=== PATIENT | female | born 1960 | race Caucasian/White ===

== ENCOUNTER 2022-07-10 15:55 | Emergency (ER) | payer OTHER, SELFPAY ==
[2022-07-10 16:05] VITALS: BP 148/94; PULSE 83; RESP 16; TEMP 36.3; O2SAT 100
--- NOTE | 2022-07-10 16:49 | ED.SKABFB ---
HPI - Skin/Abscess/Foreign Bdy General Chief complaint: Skin/Abscess/Foreign Body Stated complaint: Skin Sore/Finger Time Seen by Provider: 07/10/22 16:49 Source: patient, RN notes reviewed and old records reviewed Mode of arrival: ambulatory Limitations: no limitations History of Present Illness HPI narrative: 52-year-old female presents to [facility] with complaints of swelling redness and tenderness along the medial nail bed of her right middle finger for the past day and a half.Patient states that her nail was jagged and she cut her nail and doesn't know if she cut the nail in a way that caused this to get inflamed and infected. Patient has greenish area next to medial aspect of her nail bed of right middle finger with swelling present to her finger. Patient states pain to her finger reports that finger is throbbing, denies any fever. Patient has soaked her right middle finger in Epsom salt and peroxide complaint: other (paronychia) Onset (ago): day(s) (1.5 days) Severity scale (1-10): 8 Treatments prior to arrival: other (ice, Epsom salt soak, and peroxide) Related Data Home Medications Medication Instructions Recorded Confirmed lisinopril 40 mg tablet 40 mg PO DAILY 07/10/22 07/10/22 Allergies Allergy/AdvReac Type Severity Reaction Status Date / Time No Known Allergies Allergy Verified 07/10/22 16:53 Review of Systems Review of Systems: CONSTITUTIONAL: Denies fever, chills, or sweats. CARDIOVASCULAR: Denies chest pain, palpitations, or edema. RESPIRATORY: Denies cough or dyspnea. SKIN: Reports swelling redness and pain to medial aspect of her right middle finger nail bed with some swelling to end of her right middle finger MUSCULOSKELETAL: Denies joint pain or myalgia. NEUROLOGIC: Denies headache, numbness, or weakness. All systems reviewed & are unremarkable except as noted in HPI and below PMFSH Past Medical History Medical History (Updated 07/11/22 @ 00:01 by Juan Victoria) Hypertension Social History Social History (Updated 07/10/22 @ 17:26 by Deloris Palencia NP) Gender identity (if verbalized by the patient): Female Comments At time of signature, agree with nursing past medical, surgical, social and family history. There is no relevant family history pertinent to the presenting complaint Exam Narrative: GENERAL: Well-appearing, well-nourished, and in no acute distress. HEAD: Normocephalic, atraumatic. EYES: PERRLA, conjunctivae clear, and EOMI. ENT: Mucous membranes moist. Oropharynx without edema, erythema or lesions. NECK: Supple. No lymphadenopathy CHEST: Clear to auscultation. No respiratory distress.SAO2 100% on room air HEART: Regular rate and rhythm. SKIN: Warm, dry.? redness with swelling to end of the right middle finger with greenish tissue area medial aspect of nail bed with patient reporting some purulent drainage from area noted today and finger feels tight. NEURO:? Alert and oriented x3. PSYCH: Normal mood and affect Course Course Emergency Course: Patient is aware of diagnosis, understands and agrees to treatment plan.? Anticipatory guidance given.? Patient agrees to follow-up as directed and is aware of reasons to seek care at the emergency department. Portions of this record may have been created with voice recognition software Level of Care: Express Care Visit Vital Signs Vital signs: Vital Signs Temperature 36.3 C L 07/10/22 16:05 Pulse Rate 83 07/10/22 16:05 Respiratory Rate 16 07/10/22 16:05 Blood Pressure 148/94 H 07/10/22 16:05 Pulse Oximetry 100 07/10/22 16:05 Oxygen Delivery Room Air 07/10/22 16:05 Temperature 36.3 C L 07/10/22 16:05 Pulse Rate 83 07/10/22 16:05 Respiratory Rate 16 07/10/22 16:05 Blood Pressure 148/94 H 07/10/22 16:05 Pulse Oximetry 100 07/10/22 16:05 Oxygen Delivery Room Air 07/10/22 16:05 Reviewed Procedures Abscess I/D right middle finger nailbed:
== END 2022-07-10 17:10 | disposition home or self-care (01) ==
PROVIDERS: Emergency Provider Registered Nurse; PCP Family Medicine
DX: L03.011 Cellulitis of right finger (principal); I10 Essential (primary) hypertension
CPT/HCPCS: 10060; 99213; G0463

== ENCOUNTER 2024-02-07 14:30 | Emergency (ER) | payer MEDICAID, SELFPAY ==
[2024-02-07 15:28] VITALS: BP 138/57; PULSE 84; RESP 20; TEMP 37; O2SAT 99
--- NOTE | 2024-02-07 16:53 | ED_ITS ---
HPI - URI/Sore Throat General Chief Complaint: Upper Respiratory Infection Stated Complaint: fever/cough/nose/headache Time Seen by Provider: 02/07/24 16:40 Source: patient, family, RN notes reviewed and old records reviewed Mode of arrival: ambulatory Limitations: no limitations History of Present Illness HPI Narrative: 63 year old female who presents to [facility] care with complaints of headache, neck pain, cough and some wheezing since yesterday. Patient reports that she has a history of asthma and does have an albuterol inhaler which she has used without resolution of symptoms. Patient reports that she has not had any known fevers and reports no known ill contacts. MD elicited complaint: cough Pertinent past history: asthma Onset (ago): day(s) (2 day increased symptoms) Severity: moderate Description of mucous: clear Able to tolerate fluids by mouth: Yes Treatments prior to arrival: other (inhaler) Related Data Home Medications ?Medication ?Instructions ?Recorded ?Confirmed ?Last Taken ?Type lisinopril 40 mg tablet 40 mg PO DAILY 07/10/22 07/10/22 Unknown History albuterol sulfate 90 mcg/actuation inhalation 02/07/24 Unknown History aerosol inhaler Allergies Allergy/AdvReac Type Severity Reaction Status Date / Time No Known Allergies Allergy Verified 02/07/24 15:33 Review of Systems Review of Systems: CONSTITUTIONAL: Denies malaise, chills, sweats, or fever. EYES: Denies visual changes, redness, or discharge. ENT: Reports rhinorrhea, congestion, no sinus pain, no otalgia and no sore throat. CARDIOVASCULAR: Denies chest pain, palpitations, or edema. RESPIRATORY: Reports cough.? Denies any acute dyspnea. GASTROINTESTINAL: Denies abdominal pain, nausea, vomiting, diarrhea SKIN: Denies rash or itching. MUSCULOSKELETAL: Denies myalgia. NEUROLOGIC: Reports headache. All systems reviewed & are unremarkable except as noted in HPI and below PMFSH Past Medical History Medical History (Updated 02/09/24 @ 16:39 by Deloris Palencia NP) Asthma Hypertension Social History Social History (Updated 07/10/22 @ 17:26 by Deloris Palencia NP) Gender identity (if verbalized by the patient): Female Comments At time of signature, agree with nursing past medical, surgical, social and family history. There is no relevant family history pertinent to the presenting complaint Exam Narrative: GENERAL: Well-appearing, well-nourished, and in no acute distress. HEAD: Normocephalic EYES: PERRLA, conjunctivae clear ENT: Nares clear, turbinates edematous and erythematous, clear discharge. Mucous membranes moist. TM pearly caro with dull light reflex bilaterally; no tragal tenderness. Oropharynx erythematous without lesions. Tonsils not enlarged and without exudate, no drooling, no hoarseness, no trismus, uvula midline.positive for post nasal discharge. NECK: Supple. No lymphadenopathy CHEST: scattered wheezes to bases, breath sounds equal.positive for wheezing, no honchi, rales, or stridor. No respiratory distress, speaks in full sentences. HEART: Regular rate and rhythm. No murmur heard. SKIN: Warm, dry, no rash. NEURO: Alert and oriented x3. PSYCH: Normal mood and affect Course Course Emergency Course: Patient is aware of diagnosis, understands and agrees to treatment plan.? Anticipatory guidance given.? Patient agrees to follow-up as directed and is aware of reasons to seek care at the emergency department. Portions of this record may have been created with voice recognition software Level of Care: Express Care Visit Vital Signs Vital signs: Vital Signs Temperature 37.0 C 02/07/24 15:28 Pulse Rate 84 02/07/24 15:28 Respiratory Rate 20 02/07/24 15:28 Blood Pressure 138/57 L 02/07/24 15:28 Pulse Oximetry 99 02/07/24 15:28 Oxygen Delivery Room Air 02/07/24 15:28 Temperature 37.0 C 02/07/24 15:28 Pulse Rate 84 02/07/24 15:28 Respiratory Rate 20 02/07/24 15:28 Blood Pressure 138/57 L 02/07/24 15:28 Pulse Oximetry 99 02/07/24 15:28 Oxygen Delivery Room Air 02/07/24 15:28 Reviewed MDM - URI/Sore Throat MDM Narrative Medical decision making narrative: Differential diagnosis considered: Mac virus, strep pharyngitis, allergic rhinitis, upper respiratory tract infection, sinusitis, rhinosinusitis, nasopharyngitis. viral pharyngitis, otitis media, otitis externa, pneumonia, bronchitis, viral cough syndrome, viral syndrome, and influenza.? Exam findings show no acute concerns or changes; patient is non-toxic appearing and is in no distress.? Patient is appropriate for outpatient treatment and follow-up. Differential Diagnosis Differential diagnosis: Likely upper respiratory infection, sinusitis, viral infection, bronchitis and other (cough) Medical Records Attestation: I reviewed the patient's medical records. Lab Data Attestation: I reviewed the patient's lab results. Critical Care Time Critical Care Time Critical Care Time: No Discharge Plan Discharge Clinical Impression: Bronchitis Patient Disposition: Home, Self-Care Condition: Stable Instructions: Antibiotic Form, Acute Bronchitis (ED) Additional Instructions: Increase fluids especially juices and water [id number] cough and cold medicine of your choice for your symptoms Zyrtec Claritin or Chen daily include Coricidin brand decongestant Continue your inhaler/nebulizer as directed Steroids as directed--take with food heat to the face 20-30 minutes 4-6 times a day for pain Salt water gargles, throat lozenges or throat sprays as desired Antibiotic as directed--finished the medication If your symptoms persist, change or worsen significantly before you can contact your personal physician then please, without delay, go to the emergency department for further evaluation. Follow-up with PCP in 7-10 days or sooner if needed Follow up with PCP soon in regards to your blood pressure which is elevated above threshold for referral. Blood pressure above 120/80 may indicate pre- hypertension. 138/57 Patient Language: Romansh Prescriptions: New prednisone 20 mg tablet 20 mg PO BID Qty: 10 0RF azithromycin 250 mg tablet See Rx Instructions .ROUTE .COMPLEX Qty: 6 0RF Rx Instructions: For 250 mg dose pack: take 500 mg today (day 1), then 250 mg for 4 days (days 2-5) No Action albuterol sulfate 90 mcg/actuation HFA aerosol inhaler INHALATION lisinopril 40 mg tablet 40 mg PO DAILY Follow-up/Referrals: Meliton,Jer Horne DO [Primary Care Provider] - Time of Disposition: 17:01 Quality [place] Coma Scale Eyes: Open Verbal: Oriented and Alert Motor: Follows Commands Mitzy Coma Total Score: 15
== END 2024-02-07 17:06 | disposition home or self-care (01) ==
PROVIDERS: Emergency Provider Registered Nurse; PCP Family Medicine
DX: J40 Bronchitis, not specified as acute or chronic (principal); I10 Essential (primary) hypertension
CPT/HCPCS: 99213; G0463

== ENCOUNTER 2024-02-12 10:03 | Emergency (ER) | payer MEDICAID, SELFPAY ==
--- NOTE | ~2024-02-12 | XR_ITS ---
Clinical Indication: Cough PA and lateral views of the chest: Comparison: None Findings: The lungs are clear, without evidence of focal consolidation or pleural effusion. Cardiome diastinal silhouette is within normal limits. Bones and soft tissues are unremarkable. Impression: Normal chest. Reviewed, dictated and finalized at location . SETTER Impression: Normal chest.
[2024-02-12 10:10] VITALS: BP 155/79; PULSE 70; RESP 24; TEMP 37.5; O2SAT 98
[2024-02-12 10:43] LABS: EDCOVIDSCREEN Negative (Negative); EDINFLUASCREEN Negative (Negative); EDINFLUBSCREEN Negative (Negative)
--- NOTE | 2024-02-12 11:01 | ED_ITS ---
HPI - General Adult General Chief complaint: Upper Respiratory Infection Stated complaint: Shortness of Breath Source: patient Mode of arrival: ambulatory Limitations: no limitations History of Present Illness HPI narrative: Patient presents for evaluation of sick symptoms for last 7 days. Symptoms include sinus congestion, postnasal drainage, cough, shortness of breath, wheezing and hot flashes. No chills, nausea, vomiting, diarrhea. Her daughter came to visit her 2 days prior to symptom onset. Daughter was evaluated here earlier today and was diagnosed with influenza a. Patient does not smoke. She has an albuterol inhaler at home that she has been using regularly. She has seen her on 02/07/2024 was diagnosed with bronchitis. She was given prednisone and azithromycin which she has been taking as directed. Related Data Home Medications ?Medication ?Instructions ?Recorded ?Confirmed ?Last Taken ?Type lisinopril 40 mg tablet 40 mg PO DAILY 07/10/22 07/10/22 Unknown History albuterol sulfate 90 mcg/actuation inhalation 02/07/24 Unknown History aerosol inhaler Allergies Allergy/AdvReac Type Severity Reaction Status Date / Time No Known Allergies Allergy Verified 02/12/24 10:28 Review of Systems Review of Systems: CONSTITUTIONAL: Reports hot flashes. Denies chills, or sweats. EYES: Denies visual changes, redness, or discharge. ENT: Reports sinus congestion, postnasal drainage. CARDIOVASCULAR: Denies chest pain, palpitations, or edema. RESPIRATORY: Reports cough, shortness of breath and wheezing GASTROINTESTINAL: Denies abdominal pain, nausea, vomiting, or diarrhea. GENITOURINARY: Denies dysuria or hematuria. SKIN: Denies rash or itching. MUSCULOSKELETAL: Denies back pain, joint pain, or myalgia. NEUROLOGIC: Denies headache, numbness, dizziness, or weakness. PSYCHIATRIC: Denies anxiety or depression. [facility] Past Medical History Medical History Asthma Hypertension Surgical History Surgical History History of Family History Family History (Updated 02/12/24 @ 11:07 by JESUS Haas, ELENA) Mother Family history non-contributory Social History Social History Substance use: never Living arrangements: with family Gender identity (if verbalized by the patient): Female Sexual Orientation (if Verbalized by the Patient): Straight or Heterosexual Spiritual care concerns: No Exam Narrative: GENERAL: Appears acutely ill but nontoxic. Well-nourished, and in no acute distress. HEAD: Normocephalic, atraumatic. EYES: PERRLA and EOMI. ENT: Nares clear, no rhinorrhea or epistaxis. Mucous membranes moist. Oropharynx without tonsillar hypertrophy exudate or other lesions. Bilateral TMs pearly caro nonbulging NECK: Supple. No adenopathy or masses. No carotid bruits or JVD CHEST: Wheezing rales noted bilaterally. Cough present on exam. HEART: Regular rate and rhythm. No murmur heard. Normal peripheral pulses. ABDOMEN: Soft, nontender, nondistended, normal active bowel sounds. EXTREMITIES: Normal range of motion. No edema. SKIN: Warm, dry, no rash. NEURO: No focal deficits. Alert and oriented x3. PSYCH: Normal mood and affect. Course Course Emergency Course: This is a 63-year-old female who presented for evaluation of sick symptoms. Influenza and COVID were negative. Chest x-ray normal. She was exposed to flu. She has also had a persistent cough despite azithromycin. We discussed potential etiologies including influenza or pneumonia. We elected to move forward with both Tamiflu and Augmentin as she already has been taking azithromycin and prednisone. Her saturations were normal on room air. She requested a neb machine and solution as she does not where her machine is. Will also refill her MDI. Follow-up with primary provider. Go to the ER for worsening symptoms. Patient in agreement with plan of care Level of Care: Express Care Visit Vital Signs Vital signs: Vital Signs Temperature 37.5 C 02/12/24 10:10 Pulse Rate 70 02/12/24 10:10 Respiratory Rate 24 H 02/12/24 10:10 Blood Pressure 155/79 H 02/12/24 10:10 Pulse Oximetry 98 02/12/24 10:10 Oxygen Delivery Room Air 02/12/24 10:10 Temperature 37.5 C 02/12/24 10:10 Pulse Rate 70 02/12/24 10:10 Respiratory Rate 24 H 02/12/24 10:10 Blood Pressure 155/79 H 02/12/24 10:10 Pulse Oximetry 98 02/12/24 10:10 Oxygen Delivery Room Air 02/12/24 10:10 Medical Decision Making Vital Signs Vital Signs: Vital Signs Temperature 37.5 C 02/12/24 10:10 Pulse Rate 70 02/12/24 10:10 Respiratory Rate 24 H 02/12/24 10:10 Blood Pressure 155/79 H 02/12/24 10:10 Pulse Oximetry 98 02/12/24 10:10 Oxygen Delivery Room Air 02/12/24 10:10 Temperature 37.5 C 02/12/24 10:10 Pulse Rate 70 02/12/24 10:10 Respiratory Rate 24 H 02/12/24 10:10 Blood Pressure 155/79 H 02/12/24 10:10 Pulse Oximetry 98 02/12/24 10:10 Oxygen Delivery Room Air 02/12/24 10:10 Lab Data Labs: Lab Results 02/12/24 Range/Units 10:15 POC Influenza A Ag Negative (Negative) POC Influenza B Ag Negative (Negative) POC SARS CoV-2 Ag Negative (Negative) Imaging Data Radiologist's impression: Ordering Physician: Jeremiah Hale APRN Date of Service: 02/12/24 Procedure(s): XR chest 2V Accession Number(s): [id number] cc: Jeremiah Hale APRN; MELITON,DENY Rodrigez~ Clinical Indication: Cough PA and lateral views of the chest: Comparison: None Findings: The lungs are clear, without evidence of focal consolidation or pleural effusion. Cardiomediastinal silhouette is within normal limits. Bones and soft tissues are unremarkable. Impression: Normal chest. Discharge Plan Discharge Clinical Impression: Community acquired pneumonia, Exposure to influenza Patient Disposition: Home, Self-Care Condition: Stable Instructions: Antibiotic Form, Influenza (ED), Community Acquired Pneumonia (DC) Patient Language: [place] Prescriptions: New amoxicillin-pot clavulanate 875-125 mg tablet 1 tablet PO Q12H Qty: 20 0RF oseltamivir [Tamiflu] 75 mg capsule 75 mg PO Q12H 5 Days Qty: 10 0RF albuterol sulfate 2.5 mg/0.5 mL solution for nebulization 5 mg inhalation Q6H PRN (Reason: shortness of breath or wheezing) Qty: 30 0RF Proair Digihaler 90 mcg/actuation aero powdr breath act w/sensor 2 inh inhalation Q6H Qty: 1 0RF No Action albuterol sulfate 90 mcg/actuation HFA aerosol inhaler INHALATION prednisone 20 mg tablet 20 mg PO BID Qty: 10 0RF azithromycin 250 mg tablet See Rx Instructions .ROUTE .COMPLEX Qty: 6 0RF Rx Instructions: For 250 mg dose pack: take 500 mg today (day 1), then 250 mg for 4 days (days 2-5) lisinopril 40 mg tablet 40 mg PO DAILY Follow-up/Referrals: Meliton,Deny Horne DO [Primary Care Provider] - Time of Disposition: 11:35
--- OUTSIDE RECORDS SUMMARY | 2024-02-19 21:02 | XMS_ITS | Clinical Summary ---
Author Organization [facility] Address [address] [address] Phone Care Team Providers Care Worship Pastor Name Role Phone Jer Coelho DO Primary Care Provider +1- [phone] Samantha Harden APRN, MICROSOFT SYSTEMS ENGINEER Unavailable Allergies No known active allergies Medications alendronate (FOSAMAX) 70 MG Tablet Take 70 mg by mouth every 7 days. SUNDAY Active lisinopril (PRINIVIL, ZESTRIL) 40 MG Tablet Take 10 mg by mouth every morning. Active Cyanocobalamin (VITAMIN B-12) 100 MCG Tablet Take 100 mcg by mouth daily. Active Cholecalciferol (VITAMIN D-3) 1000 UNITS Capsule Take 1 Cap by mouth daily. Active CALCIUM PO Take 1 Tab by mouth daily. Active fish oil-omega-3 fatty acids 1000 MG Capsule Take 1,000 mg by mouth daily. Active albuterol 108 (90 Base) MCG/ACT Aerosol Solution INHALE 2 PUFFS BY MOUTH EVERY 4 HOURS NEEDED FOR SHORTNESS OF BREATH 4 Active omeprazole (PriLOSEC) 40 MG CAPSULE DELAYED RELEASE Take 1 Capsule by mouth daily. 90 Capsule 3 4 Active Active Problems No known active problems Family History Medical History Relation Name Comments Cancer Brother Cancer Father lung High Cholesterol Father Hypertension Father Prostate Cancer Father Congestive Heart Failure Maternal Grandfather Cancer Maternal Grandmother Stomach High Cholesterol Mother Hypertension Mother Cancer Other Great Pat Grandfather Throat Colon Cancer Other Great Pat Grandfather Cancer Paternal Cousin 1 Cancer Paternal Cousin 2 Cancer Paternal Grandfather Throat Cancer Paternal Grandmother Colon Cancer Paternal Grandmother Cancer Paternal Uncle Pancreatic Relation Name Status Comments Brother Father Maternal Grandfather Maternal Grandmother Mother Alive Other Great Pat Grandfather Paternal Cousin 1 Alive Paternal Cousin 2 Alive Paternal Grandfather Paternal Grandmother Paternal Uncle Social History Tobacco Use Types Packs/Day Years Used Date Smoking Tobacco: Former Cigarettes 0.5 10 Alcohol Use Standard Drinks/Week Comments Yes 2 (1 standard drink = 0.6 oz pur e alcohol) socially Sexually Active Control Partners Comments Not Currently Comments No Sex and Gender Information Value Date Recorded Sex Assigned at Not on file Legal Sex Female 7:06 PM CDT Gender Identity Not on file Sexual Orientation Not on file Last Filed Vital Signs Vital Sign Reading Time Taken Comments Blood Pressure 144/83 08/31/2023 8:57 AM CDT Pulse 75 08/31/2023 8:57 AM CDT Temperature 36 ??C (96.8 ??F) 08/31/2023 8:57 AM CDT Respiratory Rate 23 08/31/2023 8:57 AM CDT Oxygen Saturation 100% 08/31/2023 8:57 AM CDT Inhaled Oxygen Concentration - - Weight 60.3 kg (133 lb) 08/14/2023 3:32 PM CDT Height 157.5 cm (5' 2 ) 08/14/2023 3:32 PM CDT Body Mass Index 24.33 08/14/2023 3:32 PM CDT Plan of Treatment Health Maintenance Due Date Last Done Comments Hepatitis C Virus (HCV) Screening 1960 TdaP Immunization 1958 Pap Smear 05/08/1979 Cervical Cancer Screening (CCS) 1988 HPV/Cotest 1988 Cologuard 2008 Immunochemical Fecal Occult Blood 2008 Pneumococcal Immunization (5 0+ years) (1 of 1 - PCV) 2008 Zoster Immunization (1 of 2) 2008 Influenza Immunization (#1) 2023 SARS-COV-2 Immunization ( - 2024-25 season) 2023 09/02/2020, 08/12/2020 DEXA Bone Density 09/27/2025 09/28/2023 Mammogram 09/27/2025 09/28/2023, 03/27/2016 Respiratory Syncytial Virus (RSV) Immunization (Adult) (1 - 1-dose 75+ series) 2033 Colonoscopy 08/30/2033 08/31/2023, 03/19/2015 Colorectal Cancer Screening 08/30/2033 08/31/2023, 03/19/2015 Hepatitis B Immunization Aged Out No longer eligible based on patient's age to complete this topic Meningococcal Immunization (ACWY) Aged Out No longer eligible b ased on patient's age to complete this topic Rotavirus Immunization Aged Out No lo nger eligible based on patient's age to complete this topic Procedures Procedure Name Priority Date/Time Associated Diagnosis Comments [facility] SCREENING BILATERAL DIGITAL W CAD W CURT Routine 09/28/2023 10:34 AM CDT Visit for screening mammogram [facility] BONE DENSITOMETRY AXIAL SKELETON Routine 09/28/2023 10:12 AM CDT Age-related osteoporosis without current pathological fracture from Last 3 Months or Most Recently Relevant to Health Maintenance Results * [facility] SCREENING BILATERAL DIGITAL W CAD W CURT (09/28/2023 10:34 AM CDT) Anatomical Region Laterality Modality breast Bilateral Mammography 09/28/2023 10:0 6 AM CDT Narrative 10/01/2023 2:43 PM CDT - [facility]I SCREENING BILATERAL DIGITAL W CAD W CURT BILATERAL DIGITAL SCREENING MAMMOGRAM 3D/2D WITH CAD WITH MEDIOLATERAL OBLIQUE CRANIOCAUDAL: 09/28/2023 The study was acquired using digital technology and interpreted from soft copy. Current study was also evaluated with ICAD version 7.2. 2D digital mammographic views, as well as 3D digital tomosynthesis were performed in the CC and MLO projections. ?? CLINICAL: Routine screening. Patient has no complaints. No personal history of cancer. No family history of breast cancer. ?? COMPARISONS: Comparison is made to exams dated: ??03/27/2016, 05/25/2014, and 11/04/2012 [facility]. ?? BREAST TISSUE:The tissue of both breasts is heterogeneously dense. This may lower the sensitivity of mammography. ?? FINDINGS: There are benign calcifications in the left breast. ?? No significant masses, calcifications, or other findings are seen in either breast. ?? There has been no significant interval change. IMPRESSION: BI-RAD 2 BENIGN There is no mammographic evidence of malignancy. A 1 year screening mammogram is recommended. ?? A letter will be sent to the patient with these results. The patient will be entered into a reminder system with a target due date of 1 year for her next screening exam. Electronically signed by: Dre Sam M.D. ? ll/penrad:10/01/2023 14:28:52 ?? Machine Sneller(s): Janna ?? RT Garfield(R)(M), [facility] letter sent: Normal Exam ?? Reading location: [facility] BI-RADS: 2 Benign Procedure Note Dre Sam MD - 10/01/2023 - CHARI SCREENING BILATERAL DIGITAL W CAD W CURT BILATERAL DIGITAL SCREENING MAMMOGRAM 3D/2D WITH CAD WITH MEDIOLATERAL OBLIQUE CRANIOCAUDAL: 09/28/2023 The study was acquired using digital technology and interpreted from soft copy. Current study was also evaluated with ICAD version 7.2. 2D digital mammographic views, as well as 3D digital tomosynthesis were performed in the CC and MLO projections. CLINICAL: Routine screening. Patient has no complaints. No personal history of cancer. No family history of breast cancer. COMPARISONS: Comparison is made to exams dated: 03/27/2016, 05/25/2014, and 11/04/2012 [facility]. BREAST TISSUE:The tissue of both breasts is heterogeneously dense. This may lower the sensitivity of mammography. FINDINGS: There are benign calcifications in the left breast. No significant masses, calcifications, or other findings are seen in either breast. There has been no significant interval change. IMPRESSION: BI-RAD 2 BENIGN There is no mammographic evidence of malignancy. A 1 year screening mammogram is recommended. A letter will be sent to the patient with these results. The patient will be entered into a reminder system with a target due date of 1 year for her next screening exam. Electronically signed by: Dre stewart/radha:10/01/2023 14:28:52 Machine Sneller(s): Janna Merrill RT(R)(M), [facility] letter sent: Normal Exam Reading location: [facility] BI-RADS: 2 Benign Jer Coelho DO IMG MAMMO ORDERABLES Final Result * [facility]I BONE DENSITOMETRY AXIAL SKELETON (09/28/2023 10:12 AM CDT) Anatomical Region Laterality Modality BODY N/A Computed Radiogr aphy 09/29/2023 10:1 7 AM CDT Impressions 09/29/2023 10:19 AM CDT IMPRESSION: Osteoporosis. REFERENCE: Bone mineral density: T-Score: ?Normal (T-score above or = -1.0) ?Low bone mass ??(T-score between -1.0 and -2.5) replaces the previously used term osteopenia ?Osteoporosis (T-score = or below -2.5) Z-Score: ? Within the expected range for age (Z-score above -2.0) ? Below the expected range for age (Z-score is -2.0 or below) Please see below follow up recommendations. Medical evaluation for secondary causes of low bone mineral density may be appropriate. FRAX is a World Health Organization validated fracture risk assessment tool that calculates a person's 10 year probability of a major osteoporosis related fracture and hip fracture. ??According to the National Osteoporosis Foundation guidelines, postmenopausal women and men age 50 or older with low bone mass and a 10 year probability of a major osteoporosis related fracture = or greater than 20% or a 10 year probability of a hip fracture = or greater than 3% should be considered for pharmacological treatment for the prevention of osteoporosis. For further information, including treatment recommendations, please refer to the 2019 ISCD Official Positions (http://www.iscd.org) and the NOF's Clinician's Guide to Prevention and Treatment of Osteoporosis (http://www.nof.org/professionals/clinical-guidelines) Narrative 09/29/2023 10:19 AM CDT EXAM DESCRIPTION: [facility] BONE DENSITOMETRY AXIAL SKELETON REASON FOR STUDY: 63 y/o ?? year old ??F ??with given history of: ?? Age-related osteoporosis without current pathological fracture ? Cnc Mill Operator/Model: Gridium (S/N [id number]) CLINICAL INFORMATION: Current height: ??62 ??inches ? Maximum height: ??63 ??inches ? Weight: ??125 ??pounds Risk factors: ??Postmenopausal, parental hip fracture COMPARISON: None available FINDINGS: AP LUMBAR SPINE L1-L4: Total BMD is 1.091 g/cm2 T-score is -0.8 LEFT HIP: Total BMD is 0.758 g/cm2 T-score is -2.0 Femoral neck BMD is 0.619 g/cm2 T-score is -3.0 ?? FRAX: FRAX not reported due to T-scores of hip, femoral neck and/or spine being at or below -2.5 (Osteoporosis). THIS IS AN ELECTRONICALLY VERIFIED FINAL REPORT 09/29/2023 10:17 AM - Electronically signed by ??Eliot Currie M.D. MF: [email or web address] D: ??09/29/2023 10:17 AM T: ??09/29/2023 10:17 AM Report ID: [id number] Reading Location: ??[id number] Procedure Note Eliot Currie MD - 09/29/2023 EXAM DESCRIPTION: [facility] BONE DENSITOMETRY AXIAL SKELETON REASON FOR STUDY: 63 y/o year old F with given history of: Age-related osteoporosis without current pathological fracture Cnc Mill Operator/Model: Gridium (S/N [id number]) CLINICAL INFORMATION: Current height: 62 inches Maximum height: 63 inches Weight: 125 pounds Risk factors: Postmenopausal, parental hip fracture COMPARISON: None available FINDINGS: AP LUMBAR SPINE L1-L4: Total BMD is 1.091 g/cm2 T-score is -0.8 LEFT HIP: Total BMD is 0.758 g/cm2 T-score is -2.0 Femoral neck BMD is 0.619 g/cm2 T-score is -3.0 FRAX: FRAX not reported due to T-scores of hip, femoral neck and/or spine being at or below -2.5 (Osteoporosis). THIS IS AN ELECTRONICALLY VERIFIED FINAL REPORT 09/29/2023 10:17 AM - Electronically signed by Eloit Currie M.D. MF: [email or web address] Report ID: [id number] Reading Location: [place] [address] IMPRESSION: Osteoporosis. REFERENCE: Bone mineral density: T-Score: Normal (T-score above or = -1.0) Low bone mass (T-score between -1.0 and -2.5) replaces the previously used term osteopenia Osteoporosis (T-score = or below -2.5) Z-Score: Within the expected range for age (Z-score above -2.0) Below the expected range for age (Z-score is -2.0 or below) Please see below follow up recommendations. Medical evaluation for secondary causes of low bone mineral density may be appropriate. FRAX is a World Health Organization validated fracture risk assessment tool that calculates a person's 10 year probability of a major osteoporosis related fracture and hip fracture. According to the National Osteoporosis Foundation guidelines, postmenopausal women and men age 50 or older with low bone mass and a 10 year probability of a major osteoporosis related fracture = or greater than 20% or a 10 year probability of a hip fracture = or greater than 3% should be considered for pharmacological treatment for the prevention of osteoporosis. For further information, including treatment recommendations, please refer to the 2019 ISCD Official Positions (http://www.iscd.org) and the NOF's Clinician's Guide to Prevention and Treatment of Osteoporosis (http://www.nof.org/professionals/clinical-guidelines) Jer Coelho DO IMG DEXA ORDERABLES Final Result from Last 3 Months or Most Recently Relevant to Health Maintenance Insurance MEDICAID [place] MEDICARE Care Teams Worship Pastor Relationship Specialty Start Date End Date Jer Coelho DO [address] [place] [address] PCP - General Family Medicine 03/16/15 Samantha Harden APRN, MICROSOFT SYSTEMS ENGINEER [address] [place] [address] Nurse Practitioner Advanced Practice Nurse 06/12/23
--- OUTSIDE RECORDS SUMMARY | 2024-02-19 21:02 | XMS_ITS | Encounter Summary ---
Author Organization [facility] Address [address] [place] [address] Phone Care Team Providers Care Planner Intern Name Role Phone Jer Coelho DO Primary Care Provider +1- [phone] Samantha Harden APRN, WOMENS HEALTH NURSE PRACTITIONER Unavailable Reason for Referral * Radiology Services (Routine) - Closed Specialty Diagnoses / Procedures Referred By Contac t Referred To Contact Radiology Diagnoses Age-related osteoporosis without current pathological fracture Procedures [facility]I BONE DENSITOMETRY AXIAL SKELETON Jer Coelho DO [address] [place] [address] Phone: tel: fax: Referral ID Status Reason Start Date Expiration Date Visits Re quested Visits Authorized [id number] Closed 06/19/2023 1 1 * Radiology Services (Routine) - Closed Specialty Diagnoses / Procedures Referred By Contac t Referred To Contact Radiology Diagnoses Visit for screening mammogram Procedures CHARI SCREENING BILATERAL DIGITAL W CAD W CURT Jer Coelho DO [address] [place] [address] Phone: tel: fax: Referral ID Status Reason Start Date Expiration Date Visits Re quested Visits Authorized [id number] Closed 06/19/2023 1 1 Encounter Details Date Type Department Care Team (Late st Contact Info) Description 06/19/2023 Transcribe Orders [facility] Central Scheduling [address] [facility] [place] [address] Jer Coelho DO [address] [place] [address] Visit for screening mammogram (Primary Dx); Age-related osteoporosis without current pathological fracture Social History Tobacco Use Types Packs/Day Years Used Date Smoking Tobacco: Every Day Cigarettes 0.5 10 Smokeless Tobacco: Former Quit: 03/16/2005 Alcohol Use Standard Drinks/Week Comments Yes 2 (1 standard drink = 0.6 oz pur e alcohol) occasionally Sexually Active Control Partners Comments Not Currently Comments No Sex and Gender Information Value Date Recorded Sex Assigned at Not on file Legal Sex Female 7:06 PM CDT Gender Identity Not on file Sexual Orientation Not on file documented as of this encounter Plan of Treatment Not on file documented as of this encounter Results * [facility] SCREENING BILATERAL DIGITAL W CAD W [...] to exams dated: ??03/27/2016, 05/25/2014, and 11/04/2012 [facility]. ?? BREAST TISSUE:The tissue of both breasts [...] Dre Sam M.D. ? ll/penrad:10/01/2023 14:28:52 ?? Detacher(s): Janna ?? RT Garfield(R)(M), [facility] letter sent: Normal Exam ?? Reading location: [facility] BI-RADS: 2 Benign Procedure Note Dre Sam [...] to exams dated: 03/27/2016, 05/25/2014, and 11/04/2012 [facility]. BREAST TISSUE:The tissue of both breasts is [...] exam. Electronically signed by: Dre stewart/radha:10/01/2023 14:28:52 Detacher(s): Janna Merrill RT(R)(M), [facility] letter sent: Normal Exam Reading location: [...] Narrative 09/29/2023 10:19 AM CDT EXAM DESCRIPTION: [facility] BONE DENSITOMETRY AXIAL SKELETON REASON FOR STUDY: 63 y/o ?? year old ??F ??with given history of: ?? Age-related osteoporosis without current pathological fracture ? Restaurant Line Cook/Model: Magazinga (S/N [id number]) CLINICAL INFORMATION: Current height: ??62 ??inches ? [...] AM T: ??09/29/2023 10:17 AM Report ID: [id number] Reading Location: ??[id number] Procedure Note Eliot Currie MD - 09/29/2023 EXAM DESCRIPTION: [facility] BONE DENSITOMETRY AXIAL SKELETON REASON FOR STUDY: 63 y/o year old F with given history of: Age-related osteoporosis without current pathological fracture Restaurant Line Cook/Model: Magazinga (S/N [id number]) CLINICAL INFORMATION: Current height: 62 inches Maximum [...] 09/29/2023 10:17 AM - Electronically signed by Eliot Currie M.D. MF: [email or web address] Report ID: [id number] Reading Location: [place] [address] IMPRESSION: Osteoporosis. REFERENCE: Bone mineral density: T-Score: [...] Coelho DO IMG DEXA ORDERABLES Final Result documented in this encounter Visit Diagnoses Diagnosis Visit for screening mammogram- Primary Other screening mammogram Age-related osteoporosis without current pathological fracture Senile osteoporosis Age-related osteoporosis without current pathological fracture Senile osteoporosis Visit for screening mammogram Other screening mammogram documented in this encounter Care Teams Planner Intern Relationship Specialty Start Date End Date Jer Coelho DO [address] [place] [address] PCP - General Family Medicine 03/16/15 Samantha Harden APRN, WOMENS HEALTH NURSE PRACTITIONER [address] [place] [address] Nurse Practitioner Advanced Practice Nurse 06/12/23 documented as of this encounter
--- OUTSIDE RECORDS SUMMARY | 2024-02-19 21:02 | XMS_ITS | Encounter Summary ---
Author Organization [facility] Address [address] [place] [address] Phone Care Team Providers Care Application Processor Name Role Phone Jer Coelho DO Primary Care Provider +1- [phone] Reason for Referral * Radiology Services (Routine) - Closed Specialty Diagnoses / Procedures Referred By Contac t Referred To Contact Radiology Diagnoses Senile osteoporosis Procedures CHARI BONE DENSITOMETRY AXIAL SKELETON Lukas Collier PAC [address] [facility] [place] [address] Phone: tel: fax: Referral ID Status Reason Start Date Expiration Date Visits Re quested Visits Authorized [id number] Closed 06/20/2022 1 1 * Radiology Services (Routine) - Closed Specialty Diagnoses / Procedures Referred By Contac t Referred To Contact Radiology Diagnoses Visit for screening mammogram Procedures CHARI SCREENING BILATERAL DIGITAL W CAD Lukas Collier PAC [address] [facility] [place] [address] Phone: tel: fax: Referral ID Status Reason Start Date Expiration Date Visits Re quested Visits Authorized [id number] Closed 06/20/2022 1 1 Encounter Details Date Type Department Care Team (Late st Contact Info) Description 06/20/2022 Transcribe Orders [facility] Central Scheduling [address] [place] [address] Collier Lukasmarc Burrell, PAC [address] [place] [address] Senile osteoporosis (Primary Dx); Visit for screening mammogram Social History Tobacco Use Types Packs/Day Years Used Date Smoking Tobacco: Every Day Cigarettes 0.5 10 Smokeless Tobacco: Former Quit: 03/16/2005 Alcohol Use Standard Drinks/Week Comments Yes 2 (1 standard drink = 0.6 oz pur e alcohol) occasionally Comments No Sex and Gender Information Value Date Recorded Sex Assigned at Not on file Legal Sex Female 7:06 PM CDT Gender Identity Not on file Sexual Orientation Not on file documented as of this encounter Plan of Treatment Scheduled Orders Name Type Priority Associated Diagnoses Orde r Schedule CHARI SCREENING BILATERAL DIGITAL W CAD Imaging Routine Visit for screening mammogram Expected: 06/20/2022, Expires: 06/21/2023 CHARI BONE DENSITOMETRY AXIAL SKELETON Imaging Routine Senile osteoporosis Expected: 06/20/2022, Expires: 06/21/2023 documented as of this encounter Visit Diagnoses Diagnosis Senile osteoporosis- Primary Visit for screening mammogram Other screening mammogram documented in this encounter Care Teams Application Processor Relationship Specialty Start Date End Date Jer Coelho DO [address] [place] [address] PCP - General Family Medicine 03/16/15 documented as of this encounter
--- OUTSIDE RECORDS SUMMARY | 2024-02-19 21:02 | XMS_ITS | Encounter Summary ---
Author Organization [employer] Care Team Providers Care Addressograph Operator Name Role Phone Jer Coelho DO Primary Care Provider +1- [phone] Samantha Harden APRN, MAINFRAME ARCHITECT Unavailable Encounter Details Date Type Department Care Team (Latest Contact Info) Description 08/14/2023 Travel Social History Tobacco Use Types Packs/Day Years Used Date Smoking Tobacco: Former Cigarettes 0.5 10 Smokeless Tobacco: Former Quit: [...] on file documented as of this encounter Visit Diagnoses Not on filedocumented in this encounter Care Teams Addressograph Operator Relationship Specialty Start Date End Date Jer Coelho DO [address] [place] [address] PCP - General Family Medicine 03/16/15 Samantha Harden APRN, MAINFRAME ARCHITECT [address] [place] [address] Nurse Practitioner Advanced Practice Nurse 06/12/23 documented as of this encounter
--- OUTSIDE RECORDS SUMMARY | 2024-02-19 21:02 | XMS_ITS | Encounter Summary ---
Author Organization [employer] Care Team Providers Care Supervisor [address] Name Role Phone Jer Coelho DO Primary Care Provider +1- [phone] Samantha Harden APRN, ORACLE IAM CONSULTANT Unavailable Encounter Details Date Type Department Care Team (Latest Contact Info) Description 09/28/2023 Travel Social History Tobacco Use Types Packs/Day [...] on filedocumented in this encounter Care Teams Supervisor [address] Relationship Specialty Start Date End Date Jer Coelho DO [address] [place] [address] PCP - General Family Medicine 03/16/15 Samantha Harden APRN, ORACLE IAM CONSULTANT [address] [facility] [place] [address] Nurse Practitioner Advanced Practice Nurse 06/12/23 documented as of this encounter
--- OUTSIDE RECORDS SUMMARY | 2024-02-19 21:02 | XMS_ITS | Encounter Summary ---
Author Organization [facility] Address [address] [place] [address] Phone Care Team Providers Care Blender Operator Name Role Phone Jer Coelho DO Primary Care Provider +1- [phone] Reason for Referral * Radiology Services (Routine) - Closed Specialty Diagnoses / Procedures Referred By Gumaro tran Referred To Contact Radiology Diagnoses Encounter for screening mammogram for malignant neoplasm of breast Procedures CHARI SCREENING BILATERAL DIGITAL W CAD Jer Coelho DO Phone: tel: fax: Referral ID Status Reason Start Date Expiration Date Visits Re quested Visits Authorized [id number] Closed 10/13/2020 1 1 * Radiology Services (Routine) - Closed Specialty Diagnoses / Procedures Referred By Gumaro tran Referred To Contact Radiology Diagnoses Asymptomatic postmenopausal state Procedures CHARI BONE DENSITOMETRY AXIAL SKELETON Jer Coelho DO Phone: tel: fax: Referral ID Status Reason Start Date Expiration Date Visits Re quested Visits Authorized [id number] Closed 10/13/2020 1 1 Encounter Details Date Type Department Care Team (Late st Contact Info) Description 10/13/2020 [facility] [address] [place] [address] Jer Coelho DO [address] [place] [address] Asymptomatic postmenopausal state (Primary Dx); Encounter for screening mammogram for malignant neoplasm of breast Social History Tobacco Use Types Packs/Day Years [...] Priority Associated Diagnoses Orde r Schedule CHARI BONE DENSITOMETRY AXIAL SKELETON Imaging Routine Asymptomatic postmenopausal state Expected: 10/13/2020, Expires: 10/13/2021 CHARI SCREENING BILATERAL DIGITAL W CAD Imaging Routine Encounter for screening mammogram for malignant neoplasm of breast Expected: 10/13/2020, Expires: 10/13/2021 documented as of this encounter Visit Diagnoses Diagnosis Asymptomatic postmenopausal state- Primary Encounter for screening mammogram for malignant neoplasm of breast Other screening mammogram documented in this encounter Care Teams Blender Operator Relationship Specialty Start Date End Date Jer Coelho DO [address] [place] [address] PCP - General Family Medicine 03/16/15 documented as of this encounter
--- OUTSIDE RECORDS SUMMARY | 2024-02-19 21:02 | XMS_ITS | Encounter Summary ---
Author Organization [facility] Care Team Providers Care Public Opinion Survey Taker Name Role Phone Jer Coelho DO Primary Care Provider +1- [phone] Encounter Details Date Type Department Care Team (Latest Contact Info) Description 02/01/2022 Travel Social History Tobacco Use Types Packs/Day [...] on file Sexual Orientation Not on file COVID-19 Exposure Response Date Recorded In the last 10 days, have yo u been in contact with someone who was confirmed or suspected to have Coronavirus/COVID-19? 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
--- OUTSIDE RECORDS SUMMARY | 2024-02-19 21:02 | XMS_ITS | Encounter Summary ---
Author Organization [facility] Address [address] [place] [address] Phone Care Team Providers Care Services Manager Name Role Phone Jer Coelho DO Primary Care Provider +1- [phone] Samantha Harden APRN, [employer] Unavailable Reason for Referral * Radiology Services (Routine) - Closed Specialty Diagnoses / Procedures Referred By Gumaro tran Referred To Contact Radiology Diagnoses Visit for screening mammogram Procedures CHARI SCREENING BILATERAL DIGITAL W CAD W Jer Brooke DO [address] [place], [place] [id number] Phone: tel: fax: Referral ID Status Reason Start Date Expiration Date Visits Re quested Visits Authorized [id number] Closed 06/19/2023 1 1 Reason for Visit * Radiology Services (Routine) - Closed Specialty Diagnoses / Procedures Referred By Gumaro tran Referred To Contact Radiology Diagnoses Visit for screening mammogram Procedures CHARI SCREENING BILATERAL DIGITAL W CAD W Jer Brooke DO [address] [place] [id number] Phone: tel: fax: Referral ID Status Reason Start Date Expiration Date Visits Re quested Visits Authorized [id number] Closed 06/19/2023 1 1 Encounter Details Date Type Department Care Team (Late st Contact Info) Description 09/28/2023 9:36 AM CDT - 09/28/2023 11:59 PM CDT Hospital Encounter [facility] Mammography [address] [place] [address] Mel[place] Jer Tevin, [address] [place] [address] Discharge Disposition: Discharged to home or Selfcare Social History Tobacco Use Types Packs/Day Years [...] on file documented as of this encounter Medications at Time of Discharge albuterol 108 (90 Base) MCG/ACT Aerosol Solution INHALE 2 PUFFS BY MOUTH EVERY 4 HOURS NEEDED FOR SHORTNESS OF BREATH 02/26/2023 alendronate (FOSAMAX) 70 MG Tablet Take 70 mg by mouth every 7 days. SUNDAY CALCIUM PO Take 1 Tab by mouth daily. Cholecalciferol (VITAMIN D-3) 1000 UNITS Capsule Take 1 Cap by mouth daily. Cyanocobalamin (VITAMIN B-12) 100 MCG Tablet Take 100 mcg by mouth daily. fish oil-omega-3 fatty acids 1000 MG Capsule Take 1,000 mg by mouth daily. lisinopril (PRINIVIL, ZESTRIL) 40 MG Tablet Take 10 mg by mouth every morning. omeprazole (PriLOSEC) 40 MG CAPSULE DELAYED RELEASE Take 1 Capsule by mouth daily. 90 Capsule 3 08/31/2023 documented as of this encounter Plan of Treatment Not on file documented as of this encounter Procedures Procedure Name Priority Date/Time Associated Diagnosis Comments CHARI SCREENING BILATERAL DIGITAL W CAD W CURT Routine 09/28/2023 10:34 AM CDT Visit for screening mammogram documented in this encounter Results * CHARI SCREENING BILATERAL [...] copy. Current study was also evaluated with [employer] version 7.2. 2D digital mammographic views, as well as 3D digital tomosynthesis were performed in the CC and MLO projections. ?? CLINICAL: Routine screening. Patient has no complaints. No personal history of cancer. No family history of breast cancer. ?? COMPARISONS: Comparison is made to exams dated: ??03/27/2016, 05/25/2014, [facility] ?? BREAST TISSUE:The tissue of both breasts [...] Dre Sam M.D. ? ll/penrad:10/01/2023 14:28:52 ?? Spring Machine Operator(s): Janna ?? RT Garfield(Dianna)(Tal), [facility] letter sent: Normal Exam ?? Reading location: [facility] BI-RADS: 2 Benign Procedure Note Dre Sam [...] to exams dated: 03/27/2016, 05/25/2014, and 11/04/2012 [facility]. BREAST TISSUE:The tissue of both breasts is [...] exam. Electronically signed by: Dre stewart/radha:10/01/2023 14:28:52 Spring Machine Operator(s): MADYSON Vitale)(M), [facility] letter sent: Normal Exam Reading location: [facility] BI-RADS: 2 Benign Jer Coelho DO IMG MAMMO ORDERABLES Final Result documented in this encounter Visit Diagnoses Diagnosis Visit for screening mammogram Other screening mammogram documented in this encounter Care Teams Services Manager Relationship Specialty Start Date End Date Jer Coelho DO [address] [place] [address] PCP - General Family Medicine 03/16/15 Samantha Harden APRN, [employer] [address] [place] [address] Nurse Practitioner Advanced Practice Nurse 06/12/23 documented as of this encounter
--- OUTSIDE RECORDS SUMMARY | 2024-02-19 21:02 | XMS_ITS | Encounter Summary ---
Author Organization [facility] Address [address] 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 [place] [address] EGD-DANIEL TEST, ESOPHAGITIS, GASTRITIS Surgery Details Date/Time Status Location OR Service Patient Class Case Class Case Type Trauma Case? 08/31/2023 8:00 AM Posted [facility] GI LAB GI 02 Gastroenterology [facility] Ambulatory Surgery Electiv e/Sched uled Panel 1 Procedure LRB Anes Op Region Wound Class Comments EGD-DANIEL TEST, ESOPHAGITIS, GASTRITIS N/A Monitored Anesthesia Care COLONOSCOPY-DIVERTICULOSI S N/A Monitored Anesthesia Care Surgeon Surgeon Role Service Panel John Thrasher MD Primary Gastroenterology 1 Special Needs Dx dysphagia/polyps documented in this encounter Social History Tobacco Use Types Packs/Day Years [...] on file documented as of this encounter Last Filed Vital Signs Vital Sign Reading [...] Mass Index 24.33 08/14/2023 3:32 PM CDT documented in this encounter Discharge Instructions * Discharge Instructions* Mimi Levi RN - 08/31/2023 8:16 AM CDT YOU HAD AN EGD AND A COLONOSCOPY. DR. Thrasher FOUND: EGD- Findings: Esophagus squamocolumnar junction located at 36 cm. 2 cm hiatal hernia unchanged from prior exam in 2016. Inflammation grade B present in distal esophagus with erythema and friability consistent with acid reflux. No stricture or mass Stomach fundus body and antrum normal. Diffuse gastric erythema possibly due to gastritis. Biopsy taken with cold biopsy forceps and tissue submitted for DANIEL test. No ulceration erosion, AVM or malignancy seen Duodenum normal in the bulb 2nd and 3rd portion. Mild erythema in duodenal bulb No complications, blood loss or implants Recommendations: Check results of DANIEL test rule out H pylori. In 2016 biopsies showed negative DANIEL test. Omeprazole 40 mg daily Avoid NSAIDs. Anti-reflux measures raise the head of bed up 30?? do not lie down after eating. COLONOSCOPY- Findings: Cecum ascending colon transverse colon descending colon sigmoid colon and rectum including retroflexion were normal. Extensive sigmoid diverticulosis Recommendations: High-fiber diet Repeat colonoscopy in 10 years Follow up sooner if any symptoms like abdominal pain GI bleeding change in bowel habits weight loss DO NOT DRIVE, WORK, OPERATE MACHINERY OR USE POWER TOOLS UNTIL DAY AFTER PROCEDURE. NO ALCOHOL BEVERAGES TODAY FOLLOWING DAY: RETURN TO FULL ACTIVITY, INCLUDING WORK, UNLESS INSTRUCTED OTHERWISE. Call doctor's office ([phone]) or go to Emergency room for: Difficulty Breathing, Headache Or Visual Disturbances Persistent Dizziness Or Light-Headedness Persistent Nausea and Vomiting Temperature greater then 100.0 Significant abdominal pain, chest pain, or bleeding. Here at [facility] we strive to provide excellent care to each of our patients, along with an easy transition between departments, starting with registration until discharge. Through our excellent care and services, we hope that you would recommend our services to your family and friends. You will receive a follow-up phone call in 24-48 hours after your procedure to see how you are doing. This gives our patients the opportunity to recognize any members from our team, from housekeepers, to nurses, to physicians, that you felt gave you excellent service as well as any suggestions for improvement. We hope you found our facility clean and our mission partners courteous. You may also receiving a survey in the mail. We would appreciate it if you could complete the form and return it. A self addressed pre-paid envelope is provided. Thank you for choosing [facility]. documented in this encounter Medications at Time of Discharge [...] 3 08/31/2023 documented as of this encounter H&P Notes * John Thrasher MD - 08/31/2023 7:57 AM CDT HISTORY AND PHYSICAL John Thrasher MD Date of Exam: 08/31/2023 Date of Admission: 08/31/2023 Roxanna Cabral, (date of 1960) is a 63 y.o. at hospital day: (LOS: 53 minutes) HPI: Patient presents for surveillance colonoscopy for history of colon polyps on prior exam in 2015 , and upper endoscopy for evaluation of abdominal pain Past Medical History: has a past medical history of Colon polyps, Hypertension, and Osteoporosis. Past Surgical History: has a past surgical history that includes Section; Upper Gastrointestinal Endoscopy (N/A, 03/16/2015); and Colonoscopy (N/A, 03/19/2015). Medications: Current Facility-Administered Medications: lactated ringers infusion ondansetron (ZOFRAN) injection 4 mg Allergies: No Known Allergies Social History: reports that she has quit smoking. Her smoking use included cigarettes. She has a 5pack-year smoking history. She does not have any smokeless tobacco history on file. She reports current alcohol use of about 1.2 oz of alcohol per week. She reports that she does not use drugs. Family History: family history includes Cancer in her brother, father, maternal grandmother, paternal cousin, paternal cousin, paternal grandfather, paternal grandmother, paternal uncle, and another family member; Colon Cancer in her paternal grandmother and another family member; Congestive Heart Failure in her maternal grandfather; High Cholesterol in her father and mother; Hypertension in her father and mother; Prostate Cancer in her father. ROS: Systems are reviewed with negative findings. Physical Exam: PHYSICAL EXAMINATION: In general patient is in no acute distress. VITAL SIGNS: BP (!) 161/98 Temp 96.8 ??F (36 ??C) (Other (See Comment)) Resp 25 Ht 5' 2 (1.575 m) Wt 133 lb (60.3 kg) SpO2 98% BMI 24.33 kg/m?? HEENT: Normocephalic, atraumatic. Mucosal membranes pink, moist. Eyes, no scleral icterus. NECK: Supple. Trachea is midline. No JVD. CARDIOVASCULAR: Regular rate and rhythm. RESPIRATORY: Clear to auscultation bilaterally with no increased respiratory effort. ABDOMEN: Soft, nontender, nondistended. Bowel sounds audible. PSYCHIATRIC: Patient is alert and oriented, with appropriate mood and affect. EXTREMITIES: Warm without edema. Labs: No results found for: WBC , HEMOGLOBIN , HEMATOCRIT , PLATELETCNT , MCV No results found for: INR No components found for: LFT No components found for: BMP No results found. Problem List: There is no problem list on file for this patient. Plan: We will do surveillance colonoscopy today colon polyps in 2016 We will do upper endoscopy to evaluate for abdominal pain. Previous endoscopy showed gastritis negative H pylori and a small hiatal hernia 2016 I have explained the risks, benefits, and alternatives of the procedure to the patient and family. They wish to proceed with procedure. John Thrasher MD 08/31/2023 7:57 AM CDT documented in this encounter OR Notes * OR Surgeon - John Thrasher MD - 08/31/2023 8:41 AM CDT COLONOSCOPY Roxanna Parada Nikkovickykushal 1960 63 y.o. female 08/31/2023 7:04 AM Date of Procedure: 08/31/2023 Pre-operative Diagnosis: DYSPHAGIA, HX COLON POLYPS Post-operative Diagnosis: EGD-DANIEL TEST, ESOPHAGITIS, GASTRITIS COLONOSCOPY-DIVERTICULOSIS Procedure(s): Procedure(s): EGD-DANIEL TEST, ESOPHAGITIS, GASTRITIS COLONOSCOPY-DIVERTICULOSIS Surgeon: John Thrasher MD Anesthesia: Anesthesia Specimens: ID Type Source Tests Collected by Time 1 : DANIEL TEST Culture Stomach HELICOBACTER PYLORI DANIEL TEST, TISSUE BIOPSY John Thrasher MD 08/31/2023 0806 Withdrawal time: 9 minutes Preparation: good Description: After the risks, benefits and alternatives of the above procedure were explained to the patient, consent is obtained. The patient is brought to the endoscopy suite, monitored, and sedated to maintain a level of comfort. The video colonoscope is introduced into the rectal vault and advanced under direct visualization. Identification of the ileocecal valve, cecum, and transillumination of the right lower quadrant is observed. Paying close attention to the mucosal detail, the colonoscope is withdrawn through the entire length of the colon. Air is removed as the scope is withdrawn. Retroflex view of the anus is also performed. The scope was removed from the patient, who tolerated the procedure well. Recovery occurred in endoscopy, and the patient then transferred to postop in stable condition. Findings: Cecum ascending colon transverse colon descending colon sigmoid colon and rectum including retroflexion were normal. Extensive sigmoid diverticulosis No masses, polyps, AVM, colitis seen No complications, blood loss or implants Estimated blood loss less than 5 ml. Recommendations: High-fiber diet Repeat colonoscopy in 10 years Follow up sooner if any symptoms like abdominal pain GI bleeding change in bowel habits weight loss Thank you, for allowing me to participate in the care of your patient. Surgeon: John Thrasher MD, 08/31/2023, 8:41 AM CDT Primary Care Physician: Jer Coelho DO * OR Surgeon - John Thrasher MD - 08/31/2023 8:40 AM CDT EGD Roxannasonu Cabral 1960 63 y.o. female 08/31/2023 7:04 AM Date of Procedure: 08/31/2023 Pre-operative Diagnosis: DYSPHAGIA, HX COLON POLYPS Post-operative Diagnosis: EGD-DANIEL TEST, ESOPHAGITIS, GASTRITIS COLONOSCOPY-DIVERTICULOSIS Procedure(s): Procedure(s): EGD-DANIEL TEST, ESOPHAGITIS, GASTRITIS COLONOSCOPY-DIVERTICULOSIS Surgeon: John Thrasher MD Anesthesia: Anesthesia Specimens: ID Type Source Tests Collected by Time 1 : DANIEL TEST Culture Stomach HELICOBACTER PYLORI DANIEL TEST, TISSUE BIOPSY John Thrasher MD 08/31/2023 0806 Estimated Blood Loss: less than 5 ml Description: After the risks, benefits and alternatives of the above procedure were explained to the patient, consent is obtained. The patient is brought to Endoscopy, monitored and sedated to maintain a level ofcomfort. The video gastroscope is placed into the oral cavity and then advanced into the second portion of the duodenum under direct visualization. The scope is withdrawn through the duodenal sweep,bulb,pylorus,antrum,and body of the stomach. Retroflex view of the cardia and fundus was then carried out. Air is removed from the stomach and the scope was brought up to the GE junction. The distal, mid and proximal esophagus were examined closely. The following findings/procedures were observed. The scope was removed from the patient, who tolerated the procedure well. Recovery occurred in Endoscopy and the patient then transferred to Postop in stable condition. Findings: Esophagus squamocolumnar junction located at 36 cm. 2 cm hiatal hernia unchanged from prior exam in 2016. Inflammation grade B present in distal esophagus with erythema and friability consistent with acid reflux. No stricture or mass Stomach fundus body and antrum normal. Diffuse gastric erythema possibly due to gastritis. Biopsy taken with cold biopsy forceps and tissue submitted for DANIEL test. No ulceration erosion, AVM or malignancy seen Duodenum normal in the bulb 2nd and 3rd portion. Mild erythema in duodenal bulb No complications, blood loss or implants Recommendations: Check results of DANIEL test rule out H pylori. In 2016 biopsies showed negative DANIEL test. Omeprazole 40 mg daily Avoid NSAIDs. Anti-reflux measures raise the head of bed up 30?? do not lie down after eating. Thank you for allowing me to participate in the care of your patient. Surgeon: John Thrasher MD, 08/31/2023, 8:40 AM CDT Primary Care Physician: Jer Coelho DO documented in this encounter Miscellaneous Notes * Plan of Care - Mimi Levi RN - 08/31/2023 8:51 AM CDT Problem: Adult Inpatient Plan of Care Goal: Optimal Comfort and Wellbeing Outcome: Ongoing (see interventions/notes) Goal: Readiness for Transition of Care Outcome: Ongoing (see interventions/notes) Problem: Surgery Nonspecified Goal: Anesthesia/Sedation Recovery Outcome: Ongoing (see interventions/notes) Intervention: Optimize Anesthesia Recovery Note: Ready for discharge. * PatientPass Patient Instructions - Mimi Levi RN - 08/31/2023 8:36 AM CDT Images from the original note were not included. Patient Education Table of Contents Diverticulosis To view videos and all your education online visit, https://BioProte[employer].User Replay/FTuFiHpb or scan this QR code with your smartphone. Access to this content will in one year. Diverticulosis Diverticulosis is when small pouches called diverticula form in the wall of the colon. The colon iswhere water is absorbed. It is also where poop (stool) is formed. The pouches form when the inside layer of the colon pushes through weak spots in the outer layers of the colon. You may have a few pouches or many of them. In most cases, the pouches do not cause problems. If they become inflamed or infected, you may havea condition called diverticulitis. What are the causes? The cause of this condition is not known. What increases the risk? You are more likely to get this condition if: You are older than 60 years of age. You do not eat enough fiber or you get constipated a lot. You are overweight. You do not get enough exercise. You smoke. You take aqfp-htv-gdjiqnm pain medicines. You have a family history of the condition. What are the signs or symptoms? In most people, there are no symptoms. If you do have symptoms, they may include: Bloating. Stomach cramps. Constipation or diarrhea. Pain in the lower left side of your abdomen. How is this diagnosed? This condition is often diagnosed during an exam for other colon problems. It may be diagnosed whenyou have: A colonoscopy. This is when a tube with a camera on the end is used to look at your colon. A barium enema. This is an X-ray exam that uses dye to look at your colon. A CT scan. How is this treated? You may not need treatment. Your health care provider will tell you what you can do at home to helpprevent problems. You may need treatment if you have symptoms or if you have had diverticulitis before. You may be told to: Eat a high-fiber diet. Take medicine to relax your colon. Lose weight. Follow these instructions at home: Medicines Take ewqf-vky-lzmdrti and prescription medicines only as told by your provider. If told, take a fiber supplement or probiotic. Managing constipation Your condition may cause constipation. To prevent or treat constipation, you may need to: Drink enough fluid to keep your pee (urine) pale yellow. Take bfgt-kqa-bvbavuj or prescription medicines. Eat foods that are high in fiber, such as beans, whole grains, and fresh fruits and vegetables. Limit foods that are high in fat and processed sugars, such as fried or sweet foods. Try not to strain when you poop. Contact a health care provider if: Your symptoms get worse all of a sudden. You have pain in your abdomen that gets worse. You have bloating or stomach cramps. You continue to have frequent constipation. You have a fever or chills. You vomit. Your poop is bloody, black, or tarry. This information is not intended to replace advice given to you by your health care provider. Make sure you discuss any questions you have with your health care provider. Document Released: 2004-10-26 Document Updated: 2022-10-26 Document Reviewed: 2022-10-26 [employer] Patient Education ? 2023 [employer]. * PatientPass Patient Instructions - Mimi Levi RN - 08/31/2023 8:16 AM CDT Images from the original note were not included. Patient Education Table of Contents Esophagitis To view videos and all your education online visit, https://BioProtect.User Replay/faZi64hN or scan this QR code with your smartphone. Access to this content will in one year. Esophagitis Esophagitis is inflammation of the esophagus. The esophagus is the tube that carries food from the mouth to the stomach. Esophagitis can cause soreness or pain in the esophagus. This condition can make it difficult and painful to swallow. What are the causes? Most causes of esophagitis are not serious. Common causes of this condition include: Gastroesophageal reflux disease (GERD). This is when stomach contents move back up into the esophagus (reflux). Repeated vomiting. An allergic reaction, especially caused by food allergies (eosinophilic esophagitis). Injury to the esophagus by swallowing large pills with or without water, or swallowing certain types of medicines. Swallowing harmful chemicals, such as household cleaning products. Drinking a lot of alcohol. An infection of the esophagus. This most often occurs in people who have a weakened immune system. Radiation or chemotherapy treatment for cancer. Certain diseases such as sarcoidosis, Crohn's disease, and scleroderma. What are the signs or symptoms? Symptoms of this condition include: Difficult or painful swallowing. Pain with swallowing acidic liquids, such as citrus juices. You may also have pain when you burp. Chest pain and difficulty breathing. Nausea and vomiting. Pain in the abdomen. Weight loss. Ulcers in the mouth and white patches in the mouth (candidiasis). Fever. Coughing up blood or vomiting blood. Stool that is black, tarry, or bright red. How is this diagnosed? This condition may be diagnosed based on your medical history and a physical exam. You may also have other tests, including: A test to examine your esophagus and stomach with a small flexible tube with a camera (endoscopy). A test that measures the acidity level in your esophagus. A test that measures how much pressure is on your esophagus. A barium swallow or modified barium swallow to show the shape, size, and functioning of your esophagus. Allergy tests. How is this treated? Treatment for this condition depends on the cause of your esophagitis. In some cases, steroids or other medicines may be given to help relieve your symptoms or to treat the underlying cause of your condition. You may have to make some lifestyle changes, such as: Avoiding alcohol. Quitting any products that contain nicotine or tobacco. These products include cigarettes, chewing tobacco, and vaping devices, such as e-cigarettes. If you need help quitting, ask your health care provider. Changing your diet. Exercising. Changing your sleep habits and your sleep environment. Follow these instructions at home: Medicines Take xrrn-lrq-kgkvhxi and prescription medicines only as told by your health care provider. Do not take aspirin, ibuprofen, or other NSAIDs unless your health care provider told you to do so. If you have trouble taking pills: ? Use a pill splitter to decrease the size of the pill. This will decrease the chance of the pill getting stuck or injuring your esophagus. ? Drink water after you take a pill. Eating and drinking Avoid foods and drinks that seem to make your symptoms worse. Follow a diet as recommended by your health care provider. This may involve avoiding foods and drinks such as: ? Coffee and tea, with or without caffeine. ? Drinks that contain alcohol. ? Energy drinks and sports drinks. ? Carbonated drinks or sodas. ? Chocolate and cocoa. ? Peppermint and mint flavorings. ? Garlic and onions. ? Horseradish. ? Spicy and acidic foods, including peppers, chili powder, mehta powder, vinegar, hot sauces, and barbecue sauce. ? Olivia fruit juices and citrus fruits, such as oranges, jonah, and limes. ? Tomato-based foods, such as red sauce, chili, salsa, and pizza with red sauce. ? Fried and fatty foods, such as donuts, azeri fries, potato chips, and high- fat dressings. ? High-fat meats, such as hot dogs and fatty cuts of red and white meats, such as rib eye steak, sausage, ham, and moreno. ? High-fat dairy items, such as whole milk, butter, and cream cheese. Lifestyle Eat small, frequent meals instead of large meals. Avoid drinking large amounts of liquid with your meals. Avoid eating meals during the 2?3 hours before bedtime. Avoid lying down right after you eat. Do not exercise right after you eat. Do not use any products that contain nicotine or tobacco. These products include cigarettes, chewing tobacco, and vaping devices, such as e-cigarettes. If you need help quitting, ask your health careprovider. General instructions Pay attention to any changes in your symptoms. Let your health care provider know about them. Wear loose-fitting clothing. Do not wear anything tight around your waist that causes pressure on your abdomen. Raise (elevate) the head of your bed about 6 inches (15 cm). You may need to use a wedge to do this. Try relaxation strategies such as yoga, deep breathing, or meditation to manage stress. If you needhelp reducing stress, ask your health care provider. If you are overweight, reduce your weight to an amount that is healthy for you. Ask your health care provider for guidance about a safe weight loss goal. Keep all follow-up visits. This is important. Contact a health care provider if: You have new symptoms. You have unexplained weight loss. You have difficulty swallowing, or it hurts to swallow. You have wheezing or a cough that does not go away. Your symptoms do not improve with treatment. You have frequent heartburn for more than two weeks. Get help right away if: You have sudden severe pain in your arms, neck, jaw, teeth, or back. You suddenly feel sweaty, dizzy, or light-headed. You have chest pain or shortness of breath. You vomit and the vomit is green, yellow, or black, or it looks like blood or coffee grounds. Your stool is red, bloody, or black. You have a fever. You cannot swallow, drink, or eat. These symptoms may represent a serious problem that is an emergency. Do not wait to see if the symptoms will go away. Get medical help right away. Call your local emergency services (911 in the [place] Do not drive yourself to the hospital. Summary Esophagitis is inflammation of the esophagus. Most causes of esophagitis are not serious. Follow your health care provider's instructions about eating and drinking. Contact a health care provider if you have new symptoms, have weight loss, or coughing that does not stop. Get help right away if you have severe pain in the arms, neck, jaw, teeth, or back, or if you have chest pain, shortness of breath, or fever. This information is not intended to replace advice given to you by your health care provider. Make sure you discuss any questions you have with your health care provider. Document Released: 2005-03-08 Document Updated: 2020-08-09 Document Reviewed: 2020-08-09 [employer] Patient Education ? 2023 [employer] * Plan of Care - Mimi Levi RN - 08/31/2023 7:06 AM CDT Problem: Adult Inpatient Plan of Care Goal: Plan of Care Review Outcome: Ongoing (see interventions/notes) Flowsheets (Taken 08/31/2023 07) Plan of Care Reviewed With: patient Progress: progress toward functional goals as expected Today's Goal: To go home. Outcome Evaluation: Ready for OR. Does the patient need assistance with discharge and/or transitioning to the next level of care?: No, no needs anticipated Goal: Optimal Comfort and Wellbeing Outcome: Ongoing (see interventions/notes) Goal: Readiness for Transition of Care Outcome: Ongoing (see interventions/notes) Problem: Surgery Nonspecified Goal: Anesthesia/Sedation Recovery Outcome: Ongoing (see interventions/notes) * Interdisciplinary - Deja Burger RN - 08/14/2023 3:33 PM CDT Images from the original note were not included. GI PRE-SURGICAL TESTING INSTRUCTIONS- PLEASE READ This is NOT your PREP INSTRUCTIONS, those come from your doctor who is performing your procedure. IF YOU EXPERIENCE SIGNS OR SYMPTOMS OF ILLNESS WITHIN 10 DAYS TO YOUR SCHEDULED PROCEDURE OR IF YOUCAN'T KEEP YOUR APPOINTMENT, PLEASE CALL YOUR PROCEDURAL DOCTOR'S OFFICE. DO NOT CALL PRE- SURGICALTESTING. Currently, your procedure is scheduled for 08/31/23 Your doctor has ordered [x] MONITORED SEDATION [] GENERAL It is not safe for you to drive yourself following your procedure. You must have an adult garbage truck driver (18 yrs or older) arranged in advance of your procedure who can listen to your discharge instructions with you and can stay with your if needed for 24 hrs following your procedure, for your safety. If you are using public transportation, you must have an adult ( 18 yrs or older) to accompany you. FAILURE TO MAKE THESE ARRANGEMENTS IN ADVANCE MAY RESULT IN CANCELLATION OF YOUR PROCEDURE ON THE DAY OF. DO NOT: Smoke, vape or chew for 24 hours prior to the procedure Drink alcohol 24 hours prior to the procedure Bring any valuables or money with you Wear makeup or jewelry. Remove all body piercings Shave operative area. DO: Bathe or shower the night before or the day of your procedure Wear comfortable clothes, that are easy to change in and out of. Wear safe non-slip shoes Bring a list of current medications, dosages and any srsr-anq-daphhvm medication (such as herbs, oils, supplements) or medication bottles. Please enter through the EMERGENCY ENTRANCE DOORS if arriving prior to 8 AM or you are in need of awheelchair. If arriving after 8 AM, enter through the FRONT ENTRANCE DOORS and follow the diane to your right until you reach registration. Registration may ask for your photo ID and insurance card. Registration will direct you to the elevator which will take [facility] to [facility] located on 2nd floor. The nurses will be expecting you. The nurse will have you change into a gown, get into bed, and will prepare you for the procedure. Children 16 and under must be accompanied by a parent or legal guardian in the hospital at all times. Call PST if there are problems or questions Sunday - Sunday 8am-4pm at [phone] You will get a call from the Endoscopy Dept ([phone]) a week before your procedure to give you your arrival time Required Pre-surgical Testing: To be completed day of procedure in Endoscopy Dept: None MEDICATIONS to HOLD taking Prior to PROCEDURE: / days /____ days / days / ____days HOLD Herbal supplements, Multivitamins, Vitamin E, and Fish Oil Omegas for 5 days prior to the procedure. NOTHING TO EAT OR DRINK AFTER MIDNIGHT, OR ON THE MORNING OF YOUR PROCEDURE DATE! NO GUM, MINTS, WATER. FAILURE TO FOLLOW THESE INSTRUCTIONS MAY CAUSE YOUR PROCEDURE TO BE CANCELLED FOR YOUR SAFETY. Please TAKE the following medications with a SIP OF WATER on the morning of your procedure: 1. _Lisinopril 4. 2. 5. 3. 6. Please bring your rescue inhaler, if you have one. USE morning inhalers or nasal spray. Thank you for selecting [facility] ([facility]) or your procedure. We know you have a choice ofr your healthcare and we are pleased to prvide you with this service. Our [facility] [facility] is to: Serve with the Greatest Care and Love . We are not employees of [facility] we are [employer] driven to provide care based on our [employer], Vision and Values. Please do not hesitate to let us know if you have any questions or concerns. May God Bless you and we look forward to serving you. Your Perioperative Team. * Interdisciplinary - Deja Burger RN - 08/14/2023 3:33 PM CDT [facility] TEACHING Patient Name: Roxanna Cabral : 1960 CSN#: [id number] Person Educated Patient Ready to Learn Yes Teaching Method Phone The Day of Procedure: Call your physician if your physical condition changes (cold, fever, flu). Do not come to the hospital without first calling your physician. Follow your surgeon's instructions regarding your diet, bowel prep, and medications if applicable. If your have any questions, please contact your surgeon's office. No alcohol and no smoking for 24 hrs prior to procedure if applicable. Wear comfortable, loose fitting clothing. Instruction to leave all jewelry at home including wedding/engagement rings or any body piercing jewelry. Leave all valuables at home. Children ages under 16 must be accompanied by a parent or legal guardian in the hospital at all times. Detailed instructions given for arrival location and parking. Arrive for your procedure as instructed by the [facility]. Go to Registration the morning of the procedure to check in. Arrange for a responsible person to accompany you and drive you home following your procedure. Follow directions regarding which medications to take or hold. It is very important to follow directions on diabetic medication or blood thinners from your surgeon's office. When you come to the hospital only 1 adult over the age of 16 will be allowed to accompany you to the [facility]. No children under the age of 16 will be allowed in the [facility] unless they are the patient. If the patient chooses to bring their children under the age of 16, an adult must accompany those children in the surgery waiting room and cannot leave them unattended. During the flu season: refer to the visitation restriction guidelines implemented during that season if applicable. Fall Prevention Teaching The Day of Surgery: Your safety while you are in the hospital is very important to us. Following surgery, you might be at increased risk for falling for several reasons: -The hospital environment is unfamiliar. It???s not the same as being at home -You may be weaker than you realize. -You may be connected to lines or equipment that can cause you to trip. -You may be on medications that make you drowsy or dizzy. We know this can happen especially with pain medication and anesthesia. We want to partner with you in the hospital to make sure you are safe -Please do not feel hesitant to ask for help while in the hospital. You will - need extra help untilyou get stronger especially with walking and using the bathroom. -Pay close attention to what the doctors and nurses tell you about your risk of falling. -A fall can mean a longer hospital stay. Also, injuries from a fall can affect your health for the rest of your life. Some things the nurses may do to keep you safe are: -Have you use the call light for help whenever you get out of bed. -Wear non-skid slippers to keep you from slipping on the floors -Use a special belt that wraps around your waist so we can help steady you when you walk -Activate an alarm on your bed so we know if you are getting up in case you forget to use your calllight -Stay in the bathroom with you in case you become dizzy or light headed Response to Teaching: Verbalizes Understanding Patient assessed for foreign language interpreter during the preop interview and appropriate interventions taken if applicable. documented in this encounter Plan of Treatment Not on file documented as of this encounter Procedures Procedure Name Priority Date/Time Associated Diagnosis Comments HELICOBACTER PYLORI DANIEL TEST, TISSUE BIOPSY Routine 08/31/2023 8:06 AM CDT COLONOSCOPY 08/31/2023 7:57 AM CDT EGD-DANIEL TEST, ESOPHAGITIS, GASTRITISCOLONOSC OPY-DIVERTICULOSI S Special Needs Dx dysphagia/polyps EGD 08/31/2023 7:57 AM CDT EGD-DANIEL TEST, ESOPHAGITIS, GASTRITISCOLONOSC OPY-DIVERTICULOSI S Special Needs Dx dysphagia/polyps GI LAB IMAGING - EGD Routine 08/31/2023 7:05 AM CDT GI IMAGING - COLONOSCOPY Routine 08/31/2023 7:05 AM CDT documented in this encounter Results * Helicobacter pylori DANIEL Test, Tissue Biopsy (08/31/2023 8:06 AM CDT) HELICOBACTER PYLORI Negative Negative 09/01/2023 10:11 AM CDT [facility] Culture STOMACH STRUCTURE / Unknown Non-Phlebotomy Collection / Unknown 08/31/2023 8:06 AM CDT 08/31/2023 9:09 AM CDT us John Thrasher MD MICROBIOLOGY - GENERAL ORDERABLE S Final Result [facility] [address] [place] [address] * GI LAB IMAGING - EGD (08/31/2023 7:05 AM CDT) us John Thrasher MD IMG DIAGNOSTIC ORDERABLES Final Result * GI IMAGING - COLONOSCOPY (08/31/2023 7:05 AM CDT) John Thrasher MD [facility] DIAGNOSTIC ORDERABLES Final Result documented in this encounter Visit Diagnoses Not on filedocumented in this encounter Administered Medications Inactive Administered Medications - up to 3 most recent administrations Medication Order MAR Action Action Date Dose Rate Site lactated ringers infusion at 20 mL/hr, Intravenous, CONTINUOUS, Starting on Sun08/31/23 at 0730, Until Sun08/31/23 at 1121, PRE-OP (SURGERY) Restarted 08/31/2023 7:57 AM CDT New Bag 08/31/2023 7:24 AM CDT 20 mL/hr 20 mL/hr ondansetron (ZOFRAN) injection 4 mg 4 mg, Intravenous, ONCE PRN, 1 dose, Starting on Sun08/31/23 at 0705, Until Sun08/31/23 at 1121, Nausea - 1st line, PRE-OP (SURGERY) documented in this encounter Active and Recently Administered Medications Times are shown in CDT. Continuous Medication Order 08/29/2023 08/30/2023 08/31/2023 lactated ringers infusion at 20 mL/hr, Intravenous, CONTINUOUS, Starting on Sun08/31/23 at 0730, Until Sun08/31/23 at 1121, PRE-OP (SURGERY) 0724 (New Bag - Prov ider: Mimi Levi RN)0756 (Paused - Provider: Sarah Freeman APRN, CARD FEEDER - Comment: Switch to gravity)0757 (Restarted - Provider: Sarah Freeman APRN, CARD FEEDER)0823 (Anesthesia Volume Adjustment - Provider: Sarah Freeman APRN, CARD FEEDER)0847 (Stopped - Provider: Mimi Levi, YON) PRN Medication Order 08/29/2023 08/30/2023 08/31/2023 ondansetron (ZOFRAN) injection 4 mg 4 mg, Intravenous, ONCE PRN, 1 dose, Starting on Sun08/31/23 at 0705, Until Sun08/31/23 at 1121, Nausea - 1st line, PRE-OP (SURGERY) documented in this encounter Care Teams Vp Director Of Finance Relationship Specialty Start Date End Date Jer Coelho DO [address] [place] [address] PCP - General Family Medicine 03/16/15 Samantha Harden APRN, CLAY WORKER [address] [place] [address] Nurse Practitioner Advanced Practice Nurse 06/12/23 documented as of this encounter
--- OUTSIDE RECORDS SUMMARY | 2024-02-19 21:02 | XMS_ITS | Encounter Summary ---
Author Organization [facility] Address [address] [place] [address] Phone Care Team Providers Care Netbackup Engineer Name Role Phone Jer Coelho DO Primary Care Provider [phone] Reason for Referral * Radiology Services (Routine) - Closed Specialty Diagnoses / Procedures Referred By Contac t Referred To Contact Radiology Diagnoses Acute cough Shortness of breath Fever, unspecified fever cause Procedures XR CHEST 2 VIEWS Lukas Collier PAC [address] [place] [address] Phone: tel: fax: Referral ID Status Reason Start Date Expiration Date Visits Re quested Visits Authorized Closed 02/01/2022 1 1 D SALES CONSULTANT Reason for Visit * Radiology Services (Routine) - Closed Specialty Diagnoses / Procedures Referred By Contac t Referred To Contact Radiology Diagnoses Acute cough Shortness of breath Fever, unspecified fever cause Procedures XR CHEST 2 VIEWS Lukas Collier PAC [address] [place] [address] Phone: tel: fax: Referral ID Status Reason Start Date Expiration Date Visits Re quested Visits Authorized Closed 02/01/2022 1 1 Encounter Details Date Type Department Care Team (Late st Contact Info) Description 02/01/2022 3:30 PM BRAND SALES CONSULTANT - 02/01/2022 11:59 PM BRAND SALES CONSULTANT Hospital Encounter [facility] Diagnostic Radiology [address] [facility] [place] [address] Lukas Collier, PAC [address] [place] [address] Discharge Disposition: Discharged to home or Selfcare [...] Coronavirus/COVID-19? No / Unsure 02/01/2022 3:31 PM BRAND SALES CONSULTANT documented as of this encounter Medications at Time of Discharge alendronate (FOSAMAX) 70 MG Tablet Take 70 [...] 10 mg by mouth every morning. omeprazole (PRILOSEC) 40 MG CAPSULE DELAYED RELEASE Take 1 Cap by mouth daily. 90 Cap 3 03/16/2015 08/31/2023 documented as of this encounter Plan of Treatment Not on file documented as of this encounter Procedures Procedure Name Priority Date/Time Associated Diagnosis Comments XR CHEST 2 VIEWS Routine 02/01/2022 3:55 PM BRAND SALES CONSULTANT Acute cough Shortness of breath Fever, unspecified fever cause documented in this encounter Results * XR CHEST 2 VIEWS (02/01/2022 3:55 PM BRAND SALES CONSULTANT) Anatomical Region Laterality Modality Chest N/A Digital Radiogra phy 02/02/2022 4:09 PM BRAND SALES CONSULTANT Impressions 02/02/2022 4:12 PM BRAND SALES CONSULTANT IMPRESSION: ?? No acute cardiopulmonary abnormality. Narrative 02/02/2022 4:12 PM BRAND SALES CONSULTANT EXAM DESCRIPTION: ?? XR CHEST 2 VIEWS REASON FOR STUDY: ?? Shortness of breath for 2 days. ??Cough and chest pain. ??History of hypertension. TECHNIQUE: PA and lateral ??radiographic views of the chest acquired. COMPARISON: ?? None FINDINGS: LUNGS/PLEURA: ?? Minimal linear opacity within the lung bases is felt to represent scarring or atelectasis. HEART/MEDIASTINUM: ?? Cardiac silhouette and mediastinal contours are within normal limits. HARDWARE/LINES/TUBES: ?? None. BONES: ?? Osteoarthritis of the shoulders. ??Thoracic spondylosis and degenerative disc disease. OTHER: ?? No other significant finding. THIS IS AN ELECTRONICALLY VERIFIED FINAL REPORT 02/02/2022 4:09 PM - Electronically signed by ??Sana Nicole M.D. TW: TW D: ??02/02/2022 4:09 PM T: ??02/02/2022 4:09 PM Report ID: [id number] Reading Location: ??[id number] Procedure Note Sana Nicole MD - 02/02/2022 EXAM DESCRIPTION: XR CHEST 2 VIEWS REASON FOR STUDY: Shortness of breath for 2 days. Cough and chest pain. History of hypertension. TECHNIQUE: PA and lateral radiographic views of the chest acquired. COMPARISON: None FINDINGS: LUNGS/PLEURA: Minimal linear opacity within the lung bases is felt to represent scarring or atelectasis. HEART/MEDIASTINUM: Cardiac silhouette and mediastinal contours are within normal limits. HARDWARE/LINES/TUBES: None. BONES: Osteoarthritis of the shoulders. Thoracic spondylosis and degenerative disc disease. OTHER: No other significant finding. THIS IS AN ELECTRONICALLY VERIFIED FINAL REPORT 02/02/2022 4:09 PM - Electronically signed by Sana Nicole M.D. TW: [email or web address] Report ID: [id number] Reading Location: [id number] IMPRESSION: No acute cardiopulmonary abnormality. us Lukas Burrell Collier PAC IMG DIAGNOSTIC ORDERABLES Final Result documented in this encounter Visit Diagnoses Diagnosis Acute cough Shortness of breath Fever, unspecified fever cause documented in this encounter Care Teams Netbackup Engineer Relationship Specialty Start Date End Date Jer Coelho DO [address] [place] [address] PCP - General Family Medicine 03/16/15 documented as of this encounter
--- OUTSIDE RECORDS SUMMARY | 2024-02-19 21:02 | XMS_ITS | Encounter Summary ---
Author Organization [facility] Address [address] [place] [address] Phone Care Team Providers Care Timber Poisoner Name Role Phone Jer Coelho DO Primary Care Provider +1- [phone] Samantha Harden APRN, SECONDARY SPECIAL EDUCATION TEACHER Unavailable Reason for Referral * Radiology Services (Routine) - Closed Specialty Diagnoses / Procedures Referred By Contac t Referred To Contact Radiology Diagnoses LLQ abdominal pain Procedures CT ABDOMEN PELVIS W/ CONTRAST Jer Coelho DO [address] [place], [place] [address] [address] Phone: tel: fax: Referral ID Status Reason Start Date Expiration Date Visits Re quested Visits Authorized [id number] Closed 08/31/2023 1 1 Reason for Visit * Radiology Services (Routine) - Closed Specialty Diagnoses / Procedures Referred By Contac t Referred To Contact Radiology Diagnoses LLQ abdominal pain Procedures CT ABDOMEN PELVIS W/ CONTRAST Jer Coelho DO [address] [place], [place] [address] [address] Phone: tel: fax: Referral ID Status Reason Start Date Expiration Date Visits Re quested Visits Authorized [id number] Closed 08/31/2023 1 1 Encounter Details Date Type Department Care Team (Late st Contact Info) Description 10/03/2023 7:44 AM CDT - 10/03/2023 11:59 PM CDT Hospital Encounter [facility] [address] [place] [address] Jer Coelho, DO [address] [place] [address] Discharge Disposition: Discharged to home or Selfcare [...] Procedure Name Priority Date/Time Associated Diagnosis Comments CT ABDOMEN PELVIS W/ CONTRAST Routine 10/03/2023 8:15 AM CDT LLQ abdominal pain POCT CREATININE Routine 10/03/2023 8:07 AM CDT documented in this encounter Results * CT ABDOMEN PELVIS W/ CONTRAST (10/03/2023 8:15 AM CDT) Anatomical Region Laterality Modality Abdomen N/A Computed Tomogra phy 10/03/2023 2:39 PM CDT Impressions 10/03/2023 2:41 PM CDT IMPRESSION: ?? 1. ?? Mild colonic diverticulosis without evidence of acute diverticulitis. 2. ?? Interval increased size of the appendix with a diameter measuring 0.7 cm. ??These findings are of unclear clinical significance. ??Recommend short interval follow-up CT abdomen pelvis with intravenous contrast in 3 months for further evaluation. 3. ?? Nonspecific liquid stool in the cecum. 4. ?? Hepatic steatosis. 5. ?? Multilevel degenerative disc disease of the lumbar spine as described above. ??MRI may prove helpful for further evaluation if clinically desired. Narrative 10/03/2023 2:41 PM CDT EXAM DESCRIPTION: ?? Normal REASON FOR STUDY: ?? LLQ pain x 5-6 yrs. ?? TECHNIQUE: CT scan of the abdomen and pelvis performed with intravenous and ??without ??oral contrast using helical scanning technique with dynamic intravenous contrast injection. Reconstructed coronal and sagittal MPR images reviewed. All images stored on PACS. Automated exposure control was used as a dose optimization technique for this examination. CONTRAST TYPE/DOSE: ?? 66mL of IOPAMIDOL 76 % IV SOLN ??injected via ?? Intravenous COMPARISON: ?? 03/24/2014 FINDINGS: LOWER CHEST: ?? Clear. ??Heart size normal without pericardial effusion. ??No pleural effusion. LIVER: ?? Hepatic steatosis. GALLBLADDER: ?? Normal BILE DUCTS: ?? No intrahepatic or extrahepatic ductal dilatation. SPLEEN: ?? Normal size. ??No focal lesions. PANCREAS: ?? No identified cystic or solid masses. No significant calcifications. No adjacent inflammation or peripancreatic fluid collections. Pancreatic duct not dilated. ?? ADRENALS: ?? Normal. KIDNEYS/URINARY TRACT: ?? No identified significant cystic or solid masses. No visualized stones. No hydronephrosis or hydroureter. Symmetric enhancement. ?Urinary bladder is unremarkable. GI: ?? Mild colonic diverticulosis without evidence of acute diverticulitis. ??Mild increased dilatation of the appendix compared to prior 03/24/2014. ??The diameter of the appendix measures 0.7 cm. ?? These findings are of unclear clinical significance. ??Recommend short interval follow-up CT in 3 months for further evaluation. ?? Nonspecific liquid stool in the cecum is seen. ??There is lipomatous hypertrophy of the ileocecal valve. ??The terminal ileum has a normal CT appearance. ??No evidence of small-bowel obstruction. ??No significant hernia. ?? Tiny sliding hiatal hernia. PERITONEUM: ?? No ascites or free air. RETROPERITONEUM: ?? No mass or adenopathy. REPRODUCTIVE: ?? No significant abnormality. VASCULATURE: ?? No abdominal aortic aneurysm. ?? Mild calcified athero scleroses of the aortoiliac vessels. MUSCULOSKELETAL: ?? Mild bilateral sacroiliac joint osteoarthritis. ?? Mild to severe bilateral multilevel facet arthropathy, worse from L3 through S1. ??Grade 1 anterolisthesis of L4 on L5. ??Ipzj-qy-onverozc bilateral neuroforaminal stenosis at L4-L5. ??Moderate L4-L5 disc bulge and uncovering of the disc with moderate central spinal canal stenosis. ??MRI may prove helpful for further evaluation if clinically desired. OTHER: ?? No other abnormality. THIS IS AN ELECTRONICALLY VERIFIED FINAL REPORT 10/03/2023 2:39 PM - Electronically signed by ??Epifanio Mckinney M.D. BB: CARL D: ??10/03/2023 2:34 PM T: ??10/03/2023 2:39 PM Report ID: [id number] Reading Location: ??[id number] Procedure Note Epifanio Mckinney MD - 10/03/2023 EXAM DESCRIPTION: Normal REASON FOR STUDY: LLQ pain x 5-6 yrs. TECHNIQUE: CT scan of the abdomen and pelvis performed with intravenous and without oral contrast using helical scanning technique with dynamic intravenous contrast injection. Reconstructed coronal and sagittal MPR images reviewed. All images stored on PACS. Automated exposure control was used as a dose optimization technique for this examination. CONTRAST TYPE/DOSE: 66mL of IOPAMIDOL 76 % IV SOLN injected via Intravenous COMPARISON: 03/24/2014 FINDINGS: LOWER CHEST: Clear. Heart size normal without pericardial effusion. No pleural effusion. LIVER: Hepatic steatosis. GALLBLADDER: Normal BILE DUCTS: No intrahepatic or extrahepatic ductal dilatation. SPLEEN: Normal size. No focal lesions. PANCREAS: No identified cystic or solid masses. No significant calcifications. No adjacent inflammation or peripancreatic fluid collections. Pancreatic duct not dilated. ADRENALS: Normal. KIDNEYS/URINARY TRACT: No identified significant cystic or solid masses. No visualized stones. No hydronephrosis or hydroureter. Symmetric enhancement. Urinary bladder is unremarkable. GI: Mild colonic diverticulosis without evidence of acute diverticulitis. Mild increased dilatation of the appendix compared to prior 03/24/2014. The diameter of the appendix measures 0.7 cm. These findings are of unclear clinical significance. Recommend short interval follow-up CT in 3 months for further evaluation. Nonspecific liquid stool in the cecum is seen. There is lipomatous hypertrophy of the ileocecal valve. The terminal ileum has a normal CT appearance. No evidence of small-bowel obstruction. No significant hernia. Tiny sliding hiatal hernia. PERITONEUM: No ascites or free air. RETROPERITONEUM: No mass or adenopathy. REPRODUCTIVE: No significant abnormality. VASCULATURE: No abdominal aortic aneurysm. Mild calcified athero scleroses of the aortoiliac vessels. MUSCULOSKELETAL: Mild bilateral sacroiliac joint osteoarthritis. Mild to severe bilateral multilevel facet arthropathy, worse from L3 through S1. Grade 1 anterolisthesis of L4 on L5. Fera-dg-yxnkijsa bilateral neuroforaminal stenosis at L4-L5. Moderate L4-L5 disc bulge and uncovering of the disc with moderate central spinal canal stenosis. MRI may prove helpful for further evaluation if clinically desired. OTHER: No other abnormality. THIS IS AN ELECTRONICALLY VERIFIED FINAL REPORT 10/03/2023 2:39 PM - Electronically signed by Epifanio Mckinney M.D. BB: CARL Report ID: [id number] Reading Location: [id number] IMPRESSION: 1. Mild colonic diverticulosis without evidence of acute diverticulitis. 2. Interval increased size of the appendix with a diameter measuring 0.7 cm. These findings are of unclear clinical significance. Recommend short interval follow-up CT abdomen pelvis with intravenous contrast in 3 months for further evaluation. 3. Nonspecific liquid stool in the cecum. 4. Hepatic steatosis. 5. Multilevel degenerative disc disease of the lumbar spine as described above. MRI may prove helpful for further evaluation if clinically desired. us Jer Coelho DO IMG CT ORDERABLES Final Re sult * POCT Creatinine (10/03/2023 8:07 AM CDT) CREATININE - POCT 0.9 0.6 - 1.3 mg/dL 10/03/2023 8:09 AM CDT [facility] Blood 10/03/2023 8:07 AM CDT 10/03/2023 8:09 AM CDT us None Provider POINT OF CARE TESTING Final Resu lt [facility] [address] [place] [address] documented in this encounter Visit Diagnoses Diagnosis LLQ abdominal pain Abdominal pain, left lower quadrant documented in this encounter Administered Medications Inactive Administered Medications - up to 3 most recent administrations Medication Order MAR Action Action Date Dose Rate Site iopamidol (ISOVUE-370) 76 % injection 66 mL 66 mL, Intravenous, ONCE, 1 dose, On Sun10/03/23 at 0830 Given 10/03/2023 8:13 AM CDT 66 mL documented in this encounter Care Teams Timber Poisoner Relationship Specialty Start Date End Date Jer Coelho DO [facility] [address] [address] PCP - General Family Medicine 03/16/15 Samantha Harden APRN, SECONDARY SPECIAL EDUCATION TEACHER [address] [place] [address] Nurse Practitioner Advanced Practice Nurse 06/12/23 documented as of this encounter
--- OUTSIDE RECORDS SUMMARY | 2024-02-19 21:02 | XMS_ITS | Encounter Summary ---
Author Organization [employer] Care Team Providers Care Parachute Line Tier Name Role Phone Jer Coelho DO Primary Care Provider +1- [phone] Samantha Harden APRN, DATABASE REPORTING CONSULTANT Unavailable Encounter Details Date Type Department Care Team (Latest Contact Info) Description 08/31/2023 Travel Social History Tobacco Use Types Packs/Day [...] on filedocumented in this encounter Care Teams Parachute Line Tier Relationship Specialty Start Date End Date Jer Coelho DO [address] [place] [address] PCP - General Family Medicine 03/16/15 Samantha Harden APRN, DATABASE REPORTING CONSULTANT [address] [facility] [address] Nurse Practitioner Advanced Practice Nurse 06/12/23 documented as of this encounter
--- OUTSIDE RECORDS SUMMARY | 2024-02-19 21:02 | XMS_ITS | Encounter Summary ---
Author Organization [facility] Address [address] [place] [address] Phone Care Team Providers Care Grading Clerk Name Role Phone Jer Coelho DO Primary Care Provider +1- [phone] Reason for Referral * Radiology Services (Routine) - Closed Specialty Diagnoses / Procedures Referred By Gumaro tran Referred To Contact Radiology Diagnoses Acute cough Shortness of breath Fever, unspecified fever cause Procedures XR CHEST 2 VIEWS Lukas Collier PAC [address] [place] [address] Phone: tel: fax: Referral ID Status Reason Start Date Expiration Date Visits Re quested Visits Authorized [id number] Closed 02/01/2022 1 1 GER UNDERWRITING Encounter Details Date Type Department Care Team (Late st Contact Info) Description 02/01/2022 Transcribe Orders [facility] Central Scheduling [address] [place] [id number] Lukas Collier PAC [address] [place] [address] Acute cough (Primary Dx); Shortness of breath; Fever, unspecified fever cause Social History Tobacco Use Types Packs/Day Years [...] documented as of this encounter Results * XR CHEST 2 VIEWS (02/01/2022 3:55 PM MANAGER UNDERWRITING) Anatomical Region Laterality Modality Chest N/A Digital Radiogra phy 02/02/2022 4:09 PM MANAGER UNDERWRITING Impressions 02/02/2022 4:12 PM MANAGER UNDERWRITING IMPRESSION: ?? No acute cardiopulmonary abnormality. Narrative 02/02/2022 4:12 PM MANAGER UNDERWRITING EXAM DESCRIPTION: ?? XR CHEST 2 VIEWS [...] Electronically signed by ??Sana Nicole M.D. TW: EVANGELISTA D: ??02/02/2022 4:09 PM T: ??02/02/2022 4:09 PM Report ID: [id number] Reading Location: ??[id number] Procedure Note Sana Nicole MD - 02/02/2022 [...] Sana Nicole M.D. TW: EVANGELISTA Report ID: [id number] Reading Location: [id number] IMPRESSION: No acute cardiopulmonary abnormality. Lukas Burrell [facility] IMG DIAGNOSTIC ORDERABLES Final Result documented in this encounter Visit Diagnoses Diagnosis Acute cough- Primary Shortness of breath Fever, unspecified fever cause Acute cough Shortness of breath Fever, unspecified fever cause documented in this encounter Care Teams Grading Clerk Relationship Specialty Start Date End Date Jer Coelho DO [address] [place] [address] PCP - General Family Medicine 03/16/15 documented as of this encounter
--- OUTSIDE RECORDS SUMMARY | 2024-02-19 21:02 | XMS_ITS | Encounter Summary ---
Author Organization [facility] Address [address] [place] [address] Phone Care Team Providers Care Automotive Design Layout Drafter Name Role Phone Jer Coelho DO Primary Care Provider +1- [phone] Samantha Harden APRN, LAMP ASSEMBLER Unavailable Reason for Visit * Auth/Cert (Routine) Specialty Diagnoses / Procedures Referred By Contac t Referred To Contact Diagnoses DYSPHAGIA, HX COLON POLYPS Procedures EGD COLONOSCOPY Referral ID Status Reason Start Date Expiration Date Visits Re quested Visits Authorized [id number] 1 1 Encounter Details Date Type Department Care Team (Late st Contact Info) Description 08/31/2023 7:10 AM CDT Ancillary Procedure [facility] Main 1 [place] [id number] John Thrasher MD 2 [facility] [address] [place] [address] Provider, Anesthesiologist Social History Tobacco Use Types Packs/Day Years [...] Procedure Name Priority Date/Time Associated Diagnosis Comments GI IMAGING - COLONOSCOPY Routine 08/31/2023 7:05 AM CDT documented in this encounter Results * GI IMAGING - COLONOSCOPY (08/31/2023 7:05 AM CDT) John Thrasher MD IMG DIAGNOSTIC ORDERABLES Final Result documented in this encounter Visit Diagnoses Not on filedocumented in this encounter Care Teams Automotive Design Layout Drafter Relationship Specialty Start Date End Date Jer Coelho DO [address] [place] [address] PCP - General Family Medicine 03/16/15 Samantha Harden APRN, LAMP ASSEMBLER [address] [place] [address] Nurse Practitioner Advanced Practice Nurse 06/12/23 documented as of this encounter
--- OUTSIDE RECORDS SUMMARY | 2024-02-19 21:02 | XMS_ITS | Encounter Summary ---
Author Organization [facility] Address [address] [place] [address] Phone Care Team Providers Care Healthcare Economics Consultant Name Role Phone Jer Coelho DO Primary Care Provider +1- [phone] Samantha Harden APRN, NUCLEAR MEDICINE SUPERVISOR Unavailable Reason for Referral * Radiology Services (Routine) - Closed Specialty Diagnoses / Procedures Referred By Contac t Referred To Contact Radiology Procedures GI LAB IMAGING - EGD John Thrasher MD [address] [address] Phone: tel: fax: Referral ID Status Reason Start Date Expiration Date Visits Re quested Visits Authorized [id number] Closed 08/31/2023 1 1 * Radiology Services (Routine) - Closed Specialty Diagnoses / Procedures Referred By Contac t Referred To Contact Radiology Procedures GI IMAGING - COLONOSCOPY John Thrasher MD [address] [address] Phone: tel: fax: Referral ID Status Reason Start Date Expiration Date Visits Re quested Visits Authorized [id number] Closed 08/31/2023 1 1 Reason for Visit * Auth/Cert (Routine) Specialty Diagnoses / Procedures Referred By Contac t Referred To Contact Diagnoses DYSPHAGIA, HX COLON POLYPS Procedures EGD COLONOSCOPY Referral ID Status Reason Start Date Expiration Date Visits Re quested Visits Authorized [id number] 1 1 Encounter Details Date Type Department Care Team (Late st Contact Info) Description 08/31/2023 7:04 AM CDT - 08/31/2023 9:20 AM CDT Hospital Encounter [facility] GI Lab Preop/Pacu II [address] [place] [address] John Thrasher MD [address] [address] Provider, Anesthesiologist Discharge Disposition: Discharged to home or Selfcare [...] WORK, UNLESS INSTRUCTED OTHERWISE. Call doctor's office ([phone]) or go to Emergency room for: Difficulty Breathing, Headache Or Visual Disturbances Persistent Dizziness Or Light-Headedness Persistent Nausea and Vomiting Temperature greater then 100.0 Significant abdominal pain, chest pain, or bleeding. Here at [facility] we strive to provide excellent care to [...] envelope is provided. Thank you for choosing [facility]. documented in this encounter Medications at Time [...] H pylori and a small hiatal hernia 2015 I have explained the risks, benefits, and alternatives of the procedure to the patient and family. They wish to proceed with procedure. John Thrasher MD 08/31/2023 7:57 AM CDT documented in this encounter OR Notes * OR Surgeon - Jhon Thrasher MD - 08/31/2023 8:41 AM CDT COLONOSCOPY Roxanna Cabral 1960 63 y.o. female 08/31/2023 7:04 [...] MD - 08/31/2023 8:40 AM CDT EGD Roxanna Cabral 1960 63 y.o. female 08/31/2023 7:04 [...] videos and all your education online visit, [email or web address] or scan this QR code with your [...] get enough exercise. You smoke. You take cbce-zug-xzwzseq pain medicines. You have a family history [...] Follow these instructions at home: Medicines Take byfm-zhp-lvxjeug and prescription medicines only as told by your provider. If told, take a fiber supplement or probiotic. Managing constipation Your condition may cause constipation. To prevent or treat constipation, you may need to: Drink enough fluid to keep your pee (urine) pale yellow. Take adej-zbu-qvzvpzq or prescription medicines. Eat foods that are [...] 2004-10-26 Document Updated: 2022-10-26 Document Reviewed: 2022-10-26 iQiyivier Patient Education ? 2023 Zeer. * PatientPass Patient Instructions - Mimi Levi RN - 08/31/2023 8:16 AM CDT Images from the original note were not included. Patient Education Table of Contents Esophagitis To view videos and all your education online visit, [email or web address] or scan this QR code with your [...] Follow these instructions at home: Medicines Take qpjw-wgv-ttfdxkp and prescription medicines only as told by [...] vinegar, hot sauces, and barbecue sauce. ? Hemphill fruit juices and citrus fruits, such as oranges, jonah, and limes. ? Tomato-based foods, such as red sauce, chili, salsa, and pizza with red sauce. ? Fried and fatty foods, such as donuts, serbian fries, potato chips, and high- fat dressings. [...] 2005-03-08 Document Updated: 2020-08-09 Document Reviewed: 2020-08-09 Elsevier Patient Education ? 2023 Zeer. * Plan of Care - Mimi Levi RN - 08/31/2023 7:06 AM CDT Problem: Adult Inpatient Plan of Care Goal: Plan of Care Review Outcome: Ongoing (see interventions/notes) Flowsheets (Taken 08/31/2023705) Plan of Care Reviewed With: patient Progress: [...] your procedure. You must have an adult patrol driver (18 yrs or older) arranged in [...] list of current medications, dosages and any wzmy-hym-giewhtf medication (such as herbs, oils, supplements) or [...] or questions Sunday - Sunday 8am-4pm at [phone] You will get a call from the Endoscopy Dept ([phone]) a week before your procedure to give [...] or nasal spray. Thank you for selecting [facility] ([facility]) or your procedure. We know you have a choice ofr your healthcare and we are pleased to prvide you with this service. Our Mabel at [facility] is to: Serve with the Greatest Care and Love . We are not employees of [facility] we are [employer] driven to provide care based on our Mabel, Vision and Values. Please do not hesitate to let us know if you have any questions or concerns. May God Bless you and we look forward to serving you. Your Perioperative Team. * Interdisciplinary - Deja Burger RN - 08/14/2023 3:33 PM CDT [facility] GI TEACHING Patient Name: Roxanna Cabral : 1960 [facility]#: [id number] Person Educated Patient Ready to Learn Yes [...] for your procedure as instructed by the [facility] GI Lab. Go to Registration the morning [...] be allowed to accompany you to the [facility]. No children under the age of 16 will be allowed in the [facility] unless they are the patient. If the [...] to Teaching: Verbalizes Understanding Patient assessed for language and literature division chair during the preop interview and appropriate interventions [...] Negative Negative 09/01/2023 10:11 AM CDT [facility] Culture STOMACH STRUCTURE / Unknown Non-Phlebotomy Collection / Unknown 08/31/2023 8:06 AM CDT 08/31/2023 9:09 AM CDT us John Thrasher MD MICROBIOLOGY - GENERAL ORDERABLE S Final Result [facility] [address] [place] [address] * GI LAB IMAGING - EGD (08/31/2023 7:05 AM CDT) us John Thrasher MD IMG DIAGNOSTIC ORDERABLES Final Result * GI IMAGING - COLONOSCOPY (08/31/2023 7:05 AM CDT) us John STEPHENS DIAGNOSTIC ORDERABLES Final Result documented in this encounter Visit Diagnoses Diagnosis Chronic heartburn- Primary Heartburn documented in this encounter Administered Medications Inactive [...] RN)[id number] (Paused - Provider: Sarah Freeman APRN, NECKTIES PAINTER - Comment: Switch to gravity)0757 (Restarted - Provider: Sarah Freeman APRN, LISA)0823 (Anesthesia Volume Adjustment - Provider: Sarah Freeman APRN, LISA)0833 (Stopped - Provider: Mimi Levi RN) PRN Medication Order 08/29/2023 08/30/2023 08/31/2023 ondansetron (ZOFRAN) injection 4 mg 4 mg, Intravenous, ONCE PRN, 1 dose, Starting on Sun08/31/23 at 0705, Until Sun08/31/23 at 1121, Nausea - 1st line, PRE-OP (SURGERY) documented in this encounter Care Teams Healthcare Economics Consultant Relationship Specialty Start Date End Date Jer Coelho DO [address] [place] [address] PCP - General Family Medicine 03/16/15 Samantha Harden APRN, NUCLEAR MEDICINE SUPERVISOR [address] [place] [address] Nurse Practitioner Advanced Practice Nurse 06/12/23 documented as of this encounter
--- OUTSIDE RECORDS SUMMARY | 2024-02-19 21:02 | XMS_ITS | Encounter Summary ---
Author Organization [facility] Address [address] [place] [address] Phone Care Team Providers Care Maple Products Maker Name Role Phone Jer Coelho DO Primary Care Provider +1- [phone] Samantha Harden APRN, POT FLUXER Unavailable Reason for Visit * Auth/Cert (Routine) Specialty Diagnoses / Procedures Referred By Contac t Referred To Contact Diagnoses DYSPHAGIA, HX COLON POLYPS Procedures EGD COLONOSCOPY Referral ID Status Reason Start Date Expiration Date Visits Re quested Visits Authorized [id number] 1 1 Encounter Details Date Type Department Care Team (Late st Contact Info) Description 08/31/2023 7:15 AM CDT [facility]illary [facility] Main [address] [place] [phone] John Thrasher MD 2 [facility] [address] [place] [address] Provider, Anesthesiologist Social History Tobacco Use Types [...] Name Priority Date/Time Associated Diagnosis Comments GI LAB IMAGING - EGD Routine 08/31/2023 7:05 AM CDT documented in this encounter Results * GI LAB IMAGING - EGD (08/31/2023 7:05 AM CDT) John Thrasher MD IMG DIAGNOSTIC ORDERABLES Final Result documented in this encounter Visit Diagnoses Not on filedocumented in this encounter Care Teams Maple Products Maker Relationship Specialty Start Date End Date Jer Coelho DO [address] [place] [place] [address] PCP - General Family Medicine 03/16/15 Samantha Harden APRN, POT FLUXER [address] [place] [address] Nurse Practitioner Advanced Practice Nurse 06/12/23 documented as of this encounter
--- OUTSIDE RECORDS SUMMARY | 2024-02-19 21:02 | XMS_ITS | Encounter Summary ---
Author Organization [facility] Address [address] [place] [address] Phone Care Team Providers Care Retail Support Specialist Name Role Phone Jer Coelho DO Primary Care Provider +1- [phone] Samantha Harden APRN, NEONATAL DOCTOR Unavailable Reason for Referral * Radiology Services (Routine) - Closed Specialty Diagnoses / Procedures Referred By Contac t Referred To Contact Radiology Diagnoses Age-related osteoporosis without current pathological fracture Procedures CHARI BONE DENSITOMETRY AXIAL SKELETON Jer Coelho DO [address] [place] [address] Phone: tel: fax: Referral ID Status Reason Start Date Expiration Date Visits Re quested Visits Authorized [id number] Closed 06/19/2023 1 1 Reason for Visit * Radiology Services (Routine) - Closed Specialty Diagnoses / Procedures Referred By Contac t Referred To Contact Radiology Diagnoses Age-related osteoporosis without current pathological fracture Procedures CHARI BONE DENSITOMETRY AXIAL SKELETON Jer Coelho DO [address] [place] [address] Phone: tel: fax: Referral ID Status Reason Start Date Expiration Date Visits Re quested Visits Authorized [id number] Closed 06/19/2023 1 1 Encounter Details Date Type Department Care Team (Late st Contact Info) Description 09/28/2023 9:36 AM CDT - 09/28/2023 11:59 PM CDT Hospital Encounter [facility] Mammography [address] [place] [address] Meliton Jerlarry OliverJustin, [address] [place] [address] Discharge Disposition: Discharged to home or Selfcare [...] Name Priority Date/Time Associated Diagnosis Comments CHARI BONE DENSITOMETRY AXIAL SKELETON Routine 09/28/2023 10:12 AM CDT Age-related osteoporosis without current pathological fracture documented in this encounter Results * [facility] BONE DENSITOMETRY AXIAL SKELETON (09/28/2023 10:12 AM [...] Narrative 09/29/2023 10:19 AM CDT EXAM DESCRIPTION: [facility] BONE DENSITOMETRY AXIAL SKELETON REASON FOR STUDY: 63 y/o ?? year old ??F ??with given history of: ?? Age-related osteoporosis without current pathological fracture ? Glass Sander/Model: ip.access (S/N [id number]) CLINICAL INFORMATION: Current height: ??62 ??inches ? [...] AM T: ??09/29/2023 10:17 AM Report ID: [id number] Reading Location: ??[id number] Procedure Note Eliot Currie MD - 09/29/2023 EXAM DESCRIPTION: CHARI BONE DENSITOMETRY AXIAL SKELETON REASON FOR STUDY: 63 y/o year old F with given history of: Age-related osteoporosis without current pathological fracture Glass Sander/Model: ip.access (S/N [id number]) CLINICAL INFORMATION: Current height: 62 inches Maximum [...] 10:17 AM - Electronically signed by Eliot SAMUELS: ARVIND Report ID: [id number] Reading Location: [id number] IMPRESSION: Osteoporosis. REFERENCE: Bone mineral density: T-Score: [...] to Prevention and Treatment of Osteoporosis (http://www.nof.org/professionals/clinical-guidelines) Result [facility] Jer Coelho DO IMG DEXA ORDERABLES Final Result documented in this encounter Visit Diagnoses Diagnosis Age-related osteoporosis without current pathological fracture Senile osteoporosis documented in this encounter Care Teams Retail Support Specialist Relationship Specialty Start Date End Date Jer Coelho DO [facility] [place] [address] PCP - General Family Medicine 03/16/15 Samantha Harden APRN, NEONATAL DOCTOR [address] [place] [address] Nurse Practitioner Advanced Practice Nurse 06/12/23 documented as of this encounter
--- OUTSIDE RECORDS SUMMARY | 2024-02-19 21:02 | XMS_ITS | Encounter Summary ---
Author Organization [facility] Address [address] [place] [address] Phone Care Team Providers Care Scoop Driver Name Role Phone Jer Coelho DO Primary Care Provider +1- [phone] Samantha Harden APRN, CNP Unavailable Reason for Referral * Other (Routine) - Closed Specialty Diagnoses / Procedures Referred By Gumaro tran Referred To Contact Gastroenterology Diagnoses History of colon polyps Family history of colon cancer Left upper quadrant pain Procedures GASTRO PROCEDURE Samantha Harden APRN, JANEEN [address] [place] [address] Phone: tel: fax: Referral ID Status Reason Start Date Expiration Date Visits Re quested Visits Authorized [id number] Closed 06/12/2023 1 1 * Other (Routine) - Closed Specialty Diagnoses / Procedures Referred By Contkaushik t Referred To Contact Gastroenterology Diagnoses Dysphagia, unspecified type Heartburn Left upper quadrant pain Procedures GASTRO PROCEDURE Samantha Harden APRN, MECHANICAL ENGINEERING DRAFTSPERSON [address] [place] [address] Phone: tel: fax: Referral ID Status Reason Start Date Expiration Date Visits Re quested Visits Authorized [id number] Closed 06/12/2023 1 1 Reason for Visit * Reason Comments New Patient Abdominal Pain * Consult, Test & Initiate Treatment (Routine) - Closed Specialty Diagnoses / Procedures Referred By Contact Referred To Contact Gastroenterology Diagnoses Encounter for screening for malignant neoplasm of colon Procedures COLONOSCOPY Jer Coelho, [address] [place] [address] Phone: tel: fax: [facility] Gastroenterology [facility] [address] [place] [address] Phone: tel: fax: Referral ID Status Reason Start Date Expiration Date Visits Re quested Visits Authorized [id number] Closed 1 1 Encounter Details Date Type Department Care Team (Late st Contact Info) Description 06/12/2023 10:00 AM CDT Office Visit [facility] [address] [place] [address] Samantha Harden APRN, MECHANICAL ENGINEERING DRAFTSPERSON [address] [place], [place] [id number] Dysphagia, unspecified type (Primary Dx); Heartburn; History of colon polyps; Family history of colon cancer; Left upper quadrant pain Discharge Disposition: Discharged to home or Selfcare [...] Sign Reading Time Taken Comments Blood Pressure 144/86 06/12/2023 10:10 AM CDT Pulse 76 06/12/2023 10:10 AM CDT Temperature 36.8 ??C (98.2 ??F) 06/12/2023 10:10 AM C DT Respiratory Rate 14 06/12/2023 10:10 AM CDT Oxygen Saturation 97% 06/12/2023 10:10 AM CDT Inhaled Oxygen Concentration - - Weight 60.3 kg (133 lb) 06/12/2023 10:10 AM CDT Height 157.5 cm (5' 2 ) 06/12/2023 10:10 AM CDT Body Mass Index 24.33 06/12/2023 10:10 AM CDT documented in this encounter Patient Instructions * Patient Instructions* Samantha Hadren APRN, CNP - 06/12/2023 10:00 AM CDT Can use itvo-ger-ezigmrt Pepcid as needed for any heartburn. documented in this encounter Progress Notes * Samantha Harden APRN, CNP - 06/12/2023 10:00 AM CDT [facility] [address] [facility] [address] Dept: [phone] Dept Loc: [phone] Loc Patient: Roxanna Cabral : 1960 Sex: female Medical Decision Making: Assessment & Plan Diagnoses and all orders for this visit: Dysphagia, unspecified type - GASTRO PROCEDURE; Future Heartburn Comments: Famotidine 20 mg 1 to 2 times a day as needed for heartburn Orders: - GASTRO PROCEDURE; Future History of colon polyps - GASTRO PROCEDURE; Future Family history of colon cancer - GASTRO PROCEDURE; Future Left upper quadrant pain - GASTRO PROCEDURE; Future - GASTRO PROCEDURE; Future Other orders - albuterol 108 (90 Base) MCG/ACT Aerosol Solution; INHALE 2 PUFFS BY MOUTH EVERY 4 HOURS NEEDEDFOR SHORTNESS OF BREATH Here today for abdominal pain. Pain seems to be more left-sided middle and upper abdomen. She is due for colonoscopy as her last was in 2015 with hyperplastic polyps removed. We will proceed with colonoscopy at this time. She also has concerns for dysphagia and the upper abdominal pain that could be related to her stomach. We did go over her last EGD in 2016 which did showed some mild gastritis and a small hiatal hernia. She reports a paternal grandfather that had throat cancer. Due to these concerns she would like to have the EGD done again as well. EGD was ordered and can be done for the reasons discussed above. Advised to use gacf-pyg-pnlzfum Pepcid as needed for breakthrough heartburn. Monitor diet and avoid foods that worsen the symptoms. Return if symptoms worsen or fail to improve. Subjective Subjective: HPI: Roxanna Cabral is a 63 y.o. female presents for New Patient and Abdominal Pain Roxanna is here today as new patient with referral from her PCP for abdominal pain. Last colonoscopy was in 2015. Hyperplastic polyps noted. Also internal hemorrhoids. She has a family history of colorectal cancer. Labs from 01/2023 reviewed and were normal. No recent abdominal imaging available in chart. Patient reports today that she has been having pain on her left side, left upper quadrant. Comes and goes. Feels more kind of dull and achy at times. Has been present for multiple years. She denies any constipation or diarrhea. She has no blood in her stools. She does report that she had a paternalgrandmother that had colon cancer. Last colonoscopy 2015 with noted hyperplastic polyps. She was due to recheck this in 2020 but has not done that yet. She also reports occasional heartburn for which she will take bheg-olr-smymute Tums. She states some issues with dysphagia where it feels like she will have food such as broccoli or nuts stuck in herthroat. She states she tries to chew it up very well but he will still feel like there is a little piece stuck. She will cough and cough and eventually cough a piece of the food back up. She denies any vomiting. She did have an EGD in 2016 that she had done for the left upper quadrant pain that shewas having at that time. Mild gastritis and a 2 cm sliding hiatal hernia were noted. She was advised to take omeprazole for a couple of months for which she did. She states the pain did get better and so she stopped the omeprazole. At this time she knows that she needs colonoscopy but she would also like to go forward with an EGDas well due to the feelings of dysphagia and past findings of gastritis. We did discuss this hiatal hernia and symptoms that she would have from that which would not be theleft-sided abdominal pain. Her other health issues are as noted in her chart. Problem List: There is no problem list on file for this patient. Past Medical History: Past Medical History Positives Diagnosis Date Colon polyps Hypertension Osteoporosis Past Surgical History: Past Surgical History: Procedure Laterality Date SECTION X2 COLONOSCOPY N/A 03/19/2015 Procedure: COLONOSCOPY - POLYPS; Surgeon: Brendan Santos DO; Location: [facility]; Service: UPPER GASTROINTESTINAL ENDOSCOPY N/A 03/16/2015 Procedure: EGD; Surgeon: Brendan Santos DO; Location: [facility]; Service: Family History: Family History Problem Relation Age of Onset Hypertension Mother High Cholesterol Mother Hypertension Father High Cholesterol Father Prostate Cancer Father Colon Cancer Paternal Grandmother Colon Cancer Other Cousin Cancer Paternal Grandfather Throat Social History: Social History Socioeconomic History Marital status: Tobacco Use Smoking status: Every Day Packs/day: 0.50 Years: 10.00 Additional pack years: 0.00 Total pack years: 5.00 Types: Cigarettes Smokeless tobacco: Former Quit date: 03/16/2005 Vaping Use Vaping Use: Never used Substance and Sexual Activity Alcohol use: Yes Alcohol/week: 1.2 oz Types: 1 Glasses of wine, 1 Cans of beer per week Comment: occasionally Drug use: No Sexual activity: Not Currently Medications: Current Outpatient Medications: albuterol 108 (90 Base) MCG/ACT Aerosol Solution alendronate (FOSAMAX) 70 MG Tablet CALCIUM PO Cholecalciferol (VITAMIN D-3) 1000 UNITS Capsule Cyanocobalamin (VITAMIN B-12) 100 MCG Tablet fish oil-omega-3 fatty acids 1000 MG Capsule lisinopril (PRINIVIL, ZESTRIL) 10 MG Tablet omeprazole (PRILOSEC) 40 MG CAPSULE DELAYED RELEASE Allergies: No Known Allergies Review of systems was negative, except as documented in HPI. Objective Objective: BP 144/86 Pulse 76 Temp 98.2 ??F (36.8 ??C) Resp 14 Ht 5' 2 (1.575 m) Wt 133 lb (60.3 kg) SpO2 97% BMI 24.33 kg/m?? General appearance: alert, no distress, cooperative, appears stated age Lungs: clear to auscultation bilaterally Abdomen: soft, mild left upper quadrant tenderness with palpation. Bowel sounds normal. No masses, no organomegaly Neurologic: Alert and oriented X 3. Labs: No results found for: WBC , HEMOGLOBIN , HEMATOCRIT , PLATELETCNT , MCV No results found for: INR No results found for: SODIUM , POTASSIUM , CHLORIDE , CO2VEN , ANIONGAP , GLUCOSE , BUN , CREATININE , BCRATIO8 , TOTALPROTEIN , ALBUMIN , AGRATIO , CALCIUM , TBIL , SGOTAST , SGPTALT , ALKALINEPHO , GFRNA , GFRA No results found. Review of diagnostic tests: Prior EGD and colonoscopy report Samantha Harden APRN, CNP This note was transcribed using Sponto speech recognition software. As a result, there may be unintended grammar and spelling errors. documented in this encounter Plan of Treatment Scheduled Orders Name Type Priority Associated Diagnoses Orde r Schedule GASTRO PROCEDURE Procedures Routine Dysphagia, unspecified type Heartburn Left upper quadrant pain Expected: 06/12/2023 (Approximate), Expires: 06/11/2024 GASTRO PROCEDURE Procedures Routine History of colon polyps Family history of colon cancer Left upper quadrant pain Expected: 06/12/2023 (Approximate), Expires: 06/11/2024 documented as of this encounter Visit Diagnoses Diagnosis Dysphagia, unspecified type- Primary Heartburn History of colon polyps Personal history of colonic polyps Family history of colon cancer Family history of malignant neoplasm of gastrointestinal tract Left upper quadrant pain Abdominal pain, left upper quadrant documented in this encounter Care Teams Scoop Driver Relationship Specialty Start Date End Date Jer Coelho DO [address] [place] [address] PCP - General Family Medicine 03/16/15 Samantha Harden APRN, MECHANICAL ENGINEERING DRAFTSPERSON [address] [place] [address] Nurse Practitioner Advanced Practice Nurse 06/12/23 documented as of this encounter
--- OUTSIDE RECORDS SUMMARY | 2024-02-19 21:02 | XMS_ITS | Encounter Summary ---
Author Organization [employer] Care Team Providers Care Infection Control Coordinator Name Role Phone Jer Coelho DO Primary Care Provider +- [phone] Samantha Harden APRN, COLD MEAT COOK Unavailable Encounter Details Date Type Department Care Team (Latest Contact Info) Description 06/12/2023 Travel Social History Tobacco Use Types Packs/Day [...] on filedocumented in this encounter Care Teams Infection Control Coordinator Relationship Specialty Start Date End Date Jer Coelho DO [address] [place] [address] PCP - General Family Medicine 03/16/15 Samantha Harden APRN, COLD MEAT COOK [address] [place] [address] Nurse Practitioner Advanced Practice Nurse 06/12/23 documented as of this encounter
--- OUTSIDE RECORDS SUMMARY | 2024-02-19 21:02 | XMS_ITS | Encounter Summary ---
Author Organization [facility] Address [address] [facility] [place] [address] Phone Care Team Providers Care Chef Passenger Vessel Name Role Phone Luxjayy Jer Anderson DO Primary Care Provider +1- [phone] Samantha Harden APRN, BENCH HAND Unavailable Reason for Visit * Auth/Cert (Routine) Specialty Diagnoses / Procedures Referred By Contac t Referred To Contact Diagnoses DYSPHAGIA, HX COLON POLYPS Procedures EGD COLONOSCOPY Referral ID Status Reason Start Date Expiration Date Visits Re quested Visits Authorized [id number] 1 1 Encounter Details Date Type Department Care Team (Late st Contact Info) Description 08/31/2023 7:57 AM CDT [facility]est[facility] Periop [address] [place] [address] Sarah Freeman, ALENA, SCORER HELPER [address] [place] [address] Anesthesia Record Procedure Summary Procedure Name Responsible Anesthesiologist Anesthesia Start Time Anesthesia Stop Time EGD-DANIEL TEST, ESOPHAGITIS, GASTRITIS Sarah Freeman, ALENA, SCORER HELPER 08/31/23 0757 08/31/23 0825 Events Date Time Event Comment 08/31/2023 0725 0757 An Start 0758 An Start Data 0758 ANASSESSCMPLT 0758 Start Supplemental O2 0803 Anesthesia Ready 0823 Stop Supplemental O2 0823 Stop Data Collection 08 Transort to Postop 0825 Handoff to RN I completed my SBAR handoff to the receiving nurse. Last vitals BP: (!) 161/98 Temp: 36 ??C (96.8 ??F) Resp: 25 SpO2: 98 % 0825 An Stop Last vitals: BP : (!) 161/98 Temp: 36 ??C (96.8 ??F) Resp: 25 SpO2: 98 % Meds Name Total propofol 10 mg/mL 340 mg lidocaine 2 % 100 mg lactated ringers infusion 900 mL * Agents No agents on file. * Blood No blood administrations on file. Lines, Drains, and Airways Type Details Placement Removal PIV-Single Lumen Placement Date: 08/12 11/05; Placement Time: 723; Catheter Size: 22 G; Orientation: Anterior, Right; Location: Forearm; Site Prep: Chlorhexidine ; Inserted by: YON Travis; Insertion Attempts: 1; Patient Tolerance: Tolerated well; Removal Date: 08/31/23; Removal Time: 846; Removal Reason: Per policy 08/31/23 07 by Mimi Levi RN 08/31/23 0847 by Mimi Levi RN documented in this encounter Social History Tobacco [...] on file documented as of this encounter OR Notes * Anesthesia Postprocedure Evaluation - Sarah Freeman, LISA CARVAJAL - 08/31/2023 8:31 AM CDT Patient: Roxanna Cabral Procedure Summary Date: 08/31/23 Room / Location: [facility] 02 / [facility] MAIN Anesthesia Start: 756 Anesthesia Stop: 824 Procedures: EGD-DANIEL TEST, ESOPHAGITIS, GASTRITIS COLONOSCOPY-DIVERTICULOSIS Diagnosis: (EGD-DANIEL TEST, ESOPHAGITIS, GASTRITIS COLONOSCOPY-DIVERTICULOSIS) Surgeons: John Thrasher MD Responsible Provider: Sarah Freeman APRN, CRNA Anesthesia Type: MAC ASA Status: 2 Anesthesia Type: MAC Last vitals Vitals Value Taken Time BP 117/99 08/31/23826 Temp 36 ??C (96.8 ??F) 08/31/23826 Pulse 76 08/31/23826 Resp 25 08/31/23826 SpO2 99 % 08/31/23826 Pain score: 0 Pain management: adequate Patient location during evaluation: GI Lab Patient participation: Fully recovered to participate Level of consciousness: awake and alert Cardiovascular status: acceptable Respiratory status: acceptable and room air Hydration status: acceptable Anesthetic complications: no Airway patency: patent Nausea and Vomiting: none * Anesthesia Preprocedure Evaluation - Sarah Freeman APRN, CRNA - 08/31/2023 7:24 AM CDT Anesthesia Evaluation Procedure Information Date/Time: 08/31/23 08 Procedures: EGD COLONOSCOPY Location: [facility] / [facility] MAIN Surgeons: John Thrasher MD Patient summary reviewed No history of anesthetic complications No family history of anesthesia reaction Allergies: No Known Allergies Patient allergies reviewed. Medications: Current Facility-Administered Medications: lactated ringers infusion, 20 mL/hr, Intravenous, Continuous, John Thrasher MD, Last Rate: 20 mL/hr at 08/31/23723, 20 mL/hr at 08/31/23723 ondansetron (ZOFRAN) injection 4 mg, 4 mg, Intravenous, Once PRN, John Thrasher MD Medications Prior to Admission: albuterol 108 (90 Base) MCG/ACT Aerosol Solution, INHALE 2 PUFFS BY MOUTH EVERY 4 HOURS NEEDED FOR SHORTNESS OF BREATH, Disp: , Rfl: alendronate (FOSAMAX) 70 MG Tablet, Take 70 mg by mouth every 7 days. SUNDAY (Patient not taking: Reported on 06/12/2023), Disp: , Rfl: CALCIUM PO, Take 1 Tab by mouth daily., Disp: , Rfl: Cholecalciferol (VITAMIN D-3) 1000 UNITS Capsule, Take 1 Cap by mouth daily., Disp: , Rfl: Cyanocobalamin (VITAMIN B-12) 100 MCG Tablet, Take 100 mcg by mouth daily., Disp: , Rfl: fish oil-omega-3 fatty acids 1000 MG Capsule, Take 1,000 mg by mouth daily. (Patient not taking: Reported on 06/12/2023), Disp: , Rfl: lisinopril (PRINIVIL, ZESTRIL) 40 MG Tablet, Take 10 mg by mouth every morning., Disp: , Rfl: omeprazole (PRILOSEC) 40 MG CAPSULE DELAYED RELEASE, Take 1 Cap by mouth daily. (Patient not taking: Reported on 06/12/2023), Disp: 90 Cap, Rfl: 3 Patient medications reviewed. Airway Mallampati: II TM distance: >3 FB Dental - normal exam Pulmonary - negative ROS and normal exam Cardiovascular - normal exam (+) hypertension Neuro/Psych - negative ROS GI/Hepatic/Renal (+) GERD, bowel prep Endo/Other - negative ROS Anesthesia Plan ASA 2 MAC intravenous induction Anesthetic plan and risks discussed with Patient. documented in this encounter Plan of Treatment [...] 7:24 AM CDT 20 mL/hr 20 mL/hr lidocaine 2 % injection Intravenous, ONCE (in OR), Starting on Sun08/31/23 at 0803, Until Sun08/31/23 at 0825 Given 08/31/2023 8:03 AM CDT 1 00 mg propofol (DIPRIVAN) injection Intravenous, ONCE (in OR), Starting on Sun08/31/23 at 0804, Until Sun08/31/23 at 0825 Given 08/31/2023 8:19 AM CDT 3 0 mg Given 08/31/2023 8:17 AM CDT 30 mg Given 08/31/2023 8:15 AM CDT 40 mg documented in this encounter Care Teams Chef Passenger Vessel Relationship Specialty Start Date End Date Jer Coelho DO [address] [place] [address] PCP - General Family Medicine 03/16/15 Samantha Harden APRN, BENCH HAND [address] [place] [address] Nurse Practitioner Advanced Practice Nurse 06/12/23 documented as of this encounter
--- OUTSIDE RECORDS SUMMARY | 2024-02-19 21:02 | XMS_ITS | Encounter Summary ---
Author Organization [facility] Address [address] [place] [address] Phone Care Team Providers Care Pattern Grader Name Role Phone Jer Coelho DO Primary Care Provider +1- [phone] Samantha Harden APRN, MAILING MACHINE ASSISTANT Unavailable Reason for Referral * Radiology Services (Routine) - Closed Specialty Diagnoses / Procedures Referred By Contac t Referred To Contact Radiology Diagnoses LLQ abdominal pain Procedures CT ABDOMEN PELVIS W/ CONTRAST Jer Coelho DO [address] [place] [address] Phone: tel: fax: Referral ID Status Reason Start Date Expiration Date Visits Re quested Visits Authorized [id number] Closed 08/31/2023 1 1 Encounter Details Date Type Department Care Team (Late st Contact Info) Description 08/31/2023 Transcribe Orders [facility] Scheduling [address] [place] [id number] Jer Coelho DO [address] [place] [address] LLQ abdominal pain (Primary Dx) Social History Tobacco Use Types Packs/Day Years [...] documented as of this encounter Results * CT ABDOMEN PELVIS [...] ??Grade 1 anterolisthesis of L4 on L5. ??Hvnc-co-bsficllh bilateral neuroforaminal stenosis at L4-L5. ??Moderate L4-L5 [...] PM T: ??10/03/2023 2:39 PM Report ID: [id number] Reading Location: ??[id number] Procedure Note Epifanio Mckinney MD - 10/03/2023 [...] Grade 1 anterolisthesis of L4 on L5. Iqwi-hq-aablwkby bilateral neuroforaminal stenosis at L4-L5. Moderate L4-L5 disc bulge and uncovering of the disc with moderate central spinal canal stenosis. MRI may prove helpful for further evaluation if clinically desired. OTHER: No other abnormality. THIS IS AN ELECTRONICALLY VERIFIED FINAL REPORT 10/03/2023 2:39 PM - Electronically signed by Epifanio Mckinney M.D. BB: CARL Report ID: [id number] Reading Location: [id number] IMPRESSION: 1. Mild colonic diverticulosis without evidence [...] helpful for further evaluation if clinically desired. Jer Coelho DO IMG CT ORDERABLES Final Re sult documented in this encounter Visit Diagnoses Diagnosis LLQ abdominal pain- Primary Abdominal pain, left lower quadrant LLQ abdominal pain Abdominal pain, left lower quadrant documented in this encounter Care Teams Pattern Grader Relationship Specialty Start Date End Date Jer Coelho DO [address] [place] [address] PCP - General Family Medicine 03/16/15 Samantha Harden APRN, MAILING MACHINE ASSISTANT [address] [facility] [address] Nurse Practitioner Advanced Practice Nurse 06/12/23 documented as of this encounter
--- OUTSIDE RECORDS SUMMARY | 2024-02-19 21:02 | XMS_ITS | Encounter Summary ---
Author Organization [employer] Care Team Providers Care Market Research Senior Project Manager Name Role Phone Jer Coelho DO Primary Care Provider +1- [phone] Samantha Harden APRN, TRANSPORT TECH Unavailable Encounter Details Date Type Department Care Team (Latest Contact Info) Description 10/03/2023 Travel Social History Tobacco Use Types Packs/Day [...] on filedocumented in this encounter Care Teams Market Research Senior Project Manager Relationship Specialty Start Date End Date Jer Coelho DO [address] [place] [address] PCP - General Family Medicine 03/16/15 Samantha Harden APRN, TRANSPORT TECH #2 [facility] [place] [address] Nurse Practitioner Advanced Practice Nurse 06/12/23 documented as of this encounter
--- OUTSIDE RECORDS SUMMARY | 2024-02-19 21:02 | XMS_ITS | Encounter Summary ---
Author Organization [facility] Address [address] [place] [address] Phone Care Team Providers Care Hydraulic Chair Assembler Name Role Phone Jer Coelho DO Primary Care Provider +1- [phone] Samantha Harden APRN, NOZZLE TENDER Unavailable Encounter Details Date Type Department Care Team (Late st Contact Info) Description 07/11/2023 Telephone [facility] - Gastroenterology - [place] [address] [place] [address] John Thrasher MD 2 [facility] [address] [place] [address] Social History Tobacco Use Types Packs/Day Years [...] on file documented as of this encounter Miscellaneous Notes * Telephone Encounter - Roni Acosta CMA - 07/11/2023 11:06 AM CDT Colonoscopy prep instructions mailed documented in this encounter Plan of Treatment Not on file documented as of this encounter Visit Diagnoses Not on filedocumented in this encounter Care Teams Hydraulic Chair Assembler Relationship Specialty Start Date End Date Jer Coelho DO [address] [place] [address] PCP - General Family Medicine 03/16/15 Samantha Harden APRN, NOZZLE TENDER #2 [place] [address] Nurse Practitioner Advanced Practice Nurse 06/12/23 documented as of this encounter
--- OUTSIDE RECORDS SUMMARY | 2024-02-19 21:03 | XMS_ITS | Encounter Summary ---
Author Organization [facility] Healthcare Address [address] [place] [address] Care Team Providers Care Solution Make Up Operator Name Role Phone Jer Coelho DO Primary Care Provider +1- [phone] Encounter Details Date Type Department Care Team (Late st Contact Info) Description 04/10/2008 6:52 AM AGRICULTURAL SCIENCE PROFESSOR - 04/10/2008 11:59 PM AGRICULTURAL SCIENCE PROFESSOR Hospital Encounter [facility] CLINDennis Verduzco MD [address] [place] [address] [address] [place] [address] [place] [address] Other screening mammogram Social History Tobacco Use Types Packs/Day Years Used Date Smoking Tobacco: Never Assessed Alcohol Use Standard Drinks/Week Comments No 0 (1 standard drink = 0.6 oz pur e alcohol) Comments Unknown Sex and Gender Information Value Date Recorded Sex Assigned at Not on file Legal Sex Female 10:01 AM AGRICULTURAL SCIENCE PROFESSOR Gender Identity Not on file Sexual Orientation Not on file documented as of this encounter Plan of Treatment Not on file documented as of this encounter Visit Diagnoses Diagnosis Other screening mammogram documented in this encounter Care Teams Solution Make Up Operator Relationship Specialty Start Date End Date Jer Coelho DO [address] [facility] [place] [address] PCP - General 01/31/08 01/19/11 documented as of this encounter
--- OUTSIDE RECORDS SUMMARY | 2024-02-19 21:03 | XMS_ITS | Encounter Summary ---
Author Organization [facility] Healthcare Address [address] [place] [address] Care Team Providers Care Store Promoter Name Role Phone Jer Coelhoony Primary Care Provider +1- [phone] Reason for Visit * Reason Comments Back Pain Encounter Details Date Type Department Care Team (Late st Contact Info) Description 04/02/2022 3:28 AM TREATING INSPECTOR - 04/02/2022 4:00 AM [facility] Emergency [facility] Emergency Department [address] [place] [address] Neisha Zarate MD [address] [place] [id number] Acute bilateral low back pain with left-sided sciatica (Primary Dx) Discharge Disposition: Discharge to home or self care Social History Tobacco Use Types Packs/Day Years Used Date Smoking Tobacco: Never Assessed Alcohol Use Standard Drinks/Week Comments Yes 0 (1 standard drink = 0.6 oz pur e alcohol) Comments No Sex and Gender Information Value Date Recorded Sex Assigned at Not on file Legal Sex Female 10:01 AM [facility] Gender Identity Not on file Sexual Orientation Not on file documented as of this encounter Medications at Time of Discharge meclizine (ANTIVERT) 25 mg tablet Take 1 tablet (25 mg total) by mouth 3 (three) times a day as needed for dizziness 30 tablet 05/16/2019 documented as of this encounter Discharge Disposition Disposition Code Departure Means Destination Comment s Discharge to home or self care documented in this encounter ED Notes * Neisha Zarate MD - 04/02/2022 3:56 AM CST Triage Chief Complaint: Chief Complaint Patient presents with Back Pain Portions of the record may have been created with voice recognition software. Occasional wrong-word or '[id number]' substitutions may have occurred due to the inherent limitations of voice recognition software. Read the chart carefully and recognize, using context, where substitutions have occurred. H&P: Roxanna Cabral is a 61 y.o. 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 It is little bit worse on the left. She thought maybe it was her shoes. It has been worsening over the last 3 days. It is worse if she sits down like when she is trying to sit down to do her job. It is little bit better standing up or lying. It is keeping her from being able to sleep. It is radiating down her left leg. There is no numbness or weakness. No trauma she has not fallen. No saddle anesthesia. No history of cancer or IV drug use. No fevers unintentional weight loss or night sweats. She has not taken anything for it like Tylenol. Nursing Notes Reviewed. Physical Exam: Blood pressure 167/84, temperature 98.1?? F, heart rate 83, respiratory rate 19, SpO2 98 on room air GENERAL APPEARANCE: Awake and alert. No acute distress. HEAD: Atraumatic. EYES: Sclera anicteric. EOMI. ENT: Tolerates saliva. NECK: Supple. Trachea midline. HEART: RRR. Dorsal pedal pulses 2+. LUNGS: Respirations unlabored. ABDOMEN: Soft. Non-tender. No guarding or rebound. EXTREMITIES: No acute deformities. SKIN: Warm and dry. No visible rash or herpetic lesions. NEUROLOGICAL: No gross facial drooping. Moves all 4 extremities spontaneously. Normal speech and mental status. No ataxia noted. PSYCHIATRIC: Normal mood. SPINE: There is no cervical, thoracic or lumbar midline tenderness to palpation, step-offs, or acute deformities. Patient reports pain to palpation over the bilateral SI joints I have reviewed and interpreted all of the currently available lab results from this visit (if applicable): Labs Reviewed - No data to display Radiographs (if obtained): Report Reviewed: No orders to display EKG (if obtained): (All EKGs are interpreted by myself in the absence of a bicycle service technician) Procedures Chart/outside records review shows: ED course/MDM: External chart review: (details typically documented under ED workup or in chart/outside record review above in my note, if obtained) History obtained by: (Typically documented in the HPI section, sometimes in ED course when obtainedfrom additional historians but not at the initial time of patient presentation.) Discussion of management: (typically conversations time stamped and documented in ED course), Independent interpretation studies: (typically documented in ED course and please note that labs and Radiology reads obtained in the ED and listed above have been reviewed) MDM: 61-year-old with no trauma here with low back pain that radiates down whenever legs. No red flags. Patient denies UTI symptoms. There is no abdominal pain on exam. No numbness, weakness or tingling. No loss of bowel or bladder control. No saddle anesthesia. No fevers,. No night sweats, weight loss. no history of IV drug use. ED course and Medical decision making: The patient has been treated with Toradol IM, prednisone 60 mg p.o., acetaminophen a g p.o., Lidoderm patches. I estimate there is LOW risk for RAPIDLY EXPANDING OR RUPTURED AAA, CAUDA EQUINA SYNDROME, EPIDURAL MASS LESION OR HERNIATED DISK CAUSING SEVERE STENOSIS, thus I consider the discharge disposition reasonable. Roxanna Cabral and I have discussed the diagnosis and risks, and we agree with discharging home with close follow-up. We also discussed returning to the Emergency Department immediately if any new or worsening symptoms occur. We have discussed the symptoms which are most concerning that necessitate immediate return. Discharged with methocarbamol, naproxen, acetaminophen, Robaxin 500 mg TID PRN Clinical Impression: 1. Acute bilateral low back pain with left-sided sciatica Disposition: Discharge (Please note that portions of this note may have been completed with a voice recognition program. Business Integration Manager errors occur. Please contact me for any clarification.) Neisha Zarate MD 04/02/22 0402 TING INSPECTOR * Kerri Pereira RN - 04/02/2022 3:51 AM CST See downtime paperwork. TING INSPECTOR documented in this encounter Plan of Treatment Not on file documented as of this encounter Visit Diagnoses Diagnosis Acute bilateral low back pain with left-sided sciatica- Primary documented in this encounter Care Teams Store Promoter Relationship Specialty Start Date End Date Jer Coelho DO [address] [place] [address] PCP - General 01/20/11 documented as of this encounter
--- OUTSIDE RECORDS SUMMARY | 2024-02-19 21:03 | XMS_ITS | Clinical Summary ---
Author Organization [facility] Address [address] [place] [address] Care Team Providers Care Commissions Manager Name Role Phone Jer Coelho DO Primary Care Provider +1- [phone] Allergies No known active allergies Medications meclizine (ANTIVERT) 25 mg tablet Take 1 tablet (25 mg total) by mouth 3 (three) times a day as needed for dizziness 30 tablet 0 Active lisinopriL (PRINIVIL,ZESTR [place]) 20 mg tablet Take 1 tablet (20 mg total) by mouth daily Active Active Problems Problem Noted Date Diagnosed Date Age-related osteoporosis wit hout current pathological fracture 12/07/2023 Chronic obstructive pulmonary disease 08/02/2011 Overview (05/17/2016): CHR AIRWAY OBSTRUCT NEC Benign hypertension 01/20/2011 Overview (05/19/2016): Benign Hypertension Anxiety state 11/18/2008 Overview (05/17/2016): ANXIETY STATE NOS Encounters Date Type Department Care Team Description 12/18/2023 8:30 AM SOFTWARE ENGINEERING SUPERVISOR Clinical Support [address] [place] [phone] Age-related osteoporosis without current pathological fracture (Primary Dx) 12/07/[address] [place] [address] Yara Robb RN from Last 3 Months Surgical History Surgery Date Site/Laterality Comments HYSTERECTOMY Hysterectomy SECTION section SECTION 1993 section SECTION 1997 section OTHER SURGICAL HISTORY 1998 benign mass: R oophrectomy Medical History Medical History Date Comments Pneumonia Pneumonia Hx Other Medical Macular Pattern Dystrophy Hx Other Medical 1998 benign mass Hx Other Medical fusion analyst exam Family History Medical History Relation Name Comments Other Brother 2 Alive and well; Hypertension Father Hypertension; Other Father Alive and well; Prostate cancer Father Cancer -pros rizvi; Heart failure Maternal Grandfather CHF; Stomach cancer Maternal Grandmother Cance r -stomach; Cause of : Cancer -stomach Hyperlipidemia Mother Hyperlipidemi a; /Hyperlipidemia; Other Mother Alive and well; Thyroid disease Mother thyroid diso rder; Throat cancer Paternal Grandfather Cancer -throat; Cause of : Cancer -throat Other Sister 2 Alive and well; Relation Name Status Comments Brother 1 Alive Brother 2 Father Alive Maternal Grandfather Maternal Grandmother Mother Alive Paternal Grandfather Sister 1 Alive Sister 2 Social History Tobacco Use Types Packs/Day Years Used Date Smoking Tobacco: Never Assessed Alcohol Use Standard Drinks/Week Comments Yes 0 (1 standard drink = 0.6 oz pur e alcohol) Comments No Sex and Gender Information Value Date Recorded Sex Assigned at Not on file Legal Sex Female 10:01 AM SOFTWARE ENGINEERING SUPERVISOR Gender Identity Not on file Sexual Orientation Not on file Obstetrics History Last Filed Vital Signs Vital Sign Reading Time Taken Comments Blood Pressure 152/97 12/18/2023 8:26 AM SOFTWARE ENGINEERING SUPERVISOR Pulse 77 12/18/2023 8:26 AM SOFTWARE ENGINEERING SUPERVISOR Temperature 35.9 ??C (96.6 ??F) 12/18/2023 8:26 AM CS T Respiratory Rate 16 12/18/2023 8:26 AM SOFTWARE ENGINEERING SUPERVISOR Oxygen Saturation 99% 12/18/2023 8:26 AM SOFTWARE ENGINEERING SUPERVISOR Inhaled Oxygen Concentration - - Weight 55.8 kg (123 lb) 05/16/2019 8:08 AM CDT Height 157.5 cm (5' 2 ) 05/16/2019 8:08 AM CDT Body Mass Index 22.5 05/16/2019 8:08 AM CDT Plan of Treatment Health Maintenance Due Date Last Done Comments Colon Cancer Screening-Colonoscopy 1958 Depression Screening 1958 Fall Risk Assessment 1958 Hepatitis C Screening 1958 Pneumococcal vaccine 65+ (1 of 2 - PCV) 1964 DTaP/Tdap/Td Vaccine (1 - Tdap) 1969 Hepatitis B Screening 1976 Zoster Vaccine (1 of 2) 2008 Well Visit 65+ 05/08/2023 Covid-19 Vaccine (3 - season) 2023, 08/12/2020 Influenza Vaccine (#1) 2023 Breast Cancer Screening-Mammogram 09/27/2024 09/28/2023, 09/28/2023, 03/27/2016 Osteoporosis Screening-Bone Density Scan 09/27/2025 09/28/2023, 09/28/[address] [facility] MEDIC[facility] Care Teams Commissions Manager Relationship Specialty Start Date End Date Jer Coelho DO [address] [place] [address] PCP - General 01/20/11
--- OUTSIDE RECORDS SUMMARY | 2024-02-19 21:03 | XMS_ITS | Encounter Summary ---
Author Organization [facility] Healthcare Address [address] [place] [address] Care Team Providers Care Prosthetic Lab Technician Name Role Phone Jer Coelho DO Primary Care Provider +1- [phone] Reason for Visit * Reason Comments Injections * Episode Based Medications (Routine) - Authorized Specialty Diagnoses / Procedures Referred By Contac t Referred To Contact Diagnoses Age-related osteoporosis without current pathological fracture [address] [address] Phone: tel: [address] [place] [phone] Phone: tel: Referral ID Status Reason Start Date Expiration Date V isits Requested Visits Authorized [id number] Authorized 12/07/2023 01/05/2025 2 2 Encounter Details Date Type Department Care Team (Latest Contact Info) Description 12/18/2023 8:30 AM REGISTERED OCCUPATIONAL THERAPIST Clinical Support [address] [address] Age-related osteoporosis without current pathological fracture (Primary Dx) Social History Tobacco Use Types Packs/Day Years Used Date Smoking Tobacco: Never Assessed Alcohol Use Standard Drinks/Week Comments Yes 0 (1 standard drink = 0.6 oz pur e alcohol) Comments No Sex and Gender Information Value Date Recorded Sex Assigned at Not on file Legal Sex Female 10:01 AM REGISTERED OCCUPATIONAL THERAPIST Gender Identity Not on file Sexual Orientation Not on file documented as of this encounter Last Filed Vital Signs Vital Sign Reading Time Taken Comments Blood Pressure 152/97 12/18/2023 8:26 AM REGISTERED OCCUPATIONAL THERAPIST Pulse 77 12/18/2023 8:26 AM REGISTERED OCCUPATIONAL THERAPIST Temperature 35.9 ??C (96.6 ??F) 12/18/2023 8:26 AM CS T Respiratory Rate 16 12/18/2023 8:26 AM REGISTERED OCCUPATIONAL THERAPIST Oxygen Saturation 99% 12/18/2023 8:26 AM REGISTERED OCCUPATIONAL THERAPIST Inhaled Oxygen Concentration - - Weight - - Height - - Body Mass Index - - documented in this encounter Nursing Notes * Renee Humphrey RN - 12/18/2023 8:30 AM CST Pt here for Prolia as ordered by . Given as noted in MAR. Next appointment given. STERED OCCUPATIONAL THERAPIST documented in this encounter Plan of Treatment Not on file documented as of this encounter Visit Diagnoses Diagnosis Age-related osteoporosis without current pathological fracture- Primary documented in this encounter Administered Medications Inactive Administered Medications - up to 3 most recent administrations Medication Order MAR Action Action Date Dose Rate Site denosumab (PROLIA) subcutaneous syringe 60 mg 60 mg, subcutaneous, Once, On Sun12/18/23 at 0900, For 1 dose, Calcium level should be greater than 8 mg/dl. Injection to be given in the upper arm, thigh or abdomen. Refrigerate. Allow to stand 15 to 30 mins prior to useIndications:Age-related osteoporosis without current pathological fracture Given 12/18/2023 8:32 AM REGISTERED OCCUPATIONAL THERAPIST 60 mg Left Upper Arm documented in this encounter Historical Medications * This list may reflect changes made after this encounter. lisinopriL (PRINIVIL,ZESTRIL ) 20 mg tablet Take 1 tablet (20 mg total) by mouth daily added in this encounter Orders Medications Ordered That Regis ht Not Have Been Administered Count Last Ordered Date First Ordered Date denosumab (PROLIA) subcutane ous syringe 60 mg 1 12/18/2023 documented in this encounter Care Teams Prosthetic Lab Technician Relationship Specialty Start Date End Date Jer Coelho DO [address] [facility] [place] [address] PCP - General 01/20/11 documented as of this encounter
--- OUTSIDE RECORDS SUMMARY | 2024-02-19 21:03 | XMS_ITS | Encounter Summary ---
Author Organization [facility] Healthcare Address [address] [place] [address] Care Team Providers Care Steamfitter Apprentice Name Role Phone Jer Coelho DO Primary Care Provider +1- [phone] Encounter Details Date Type Department Care Team (Late st Contact Info) Description 02/25/2023 Community Orders [facility] EpicCare Link Jer Coelho DO [address] [place] [address] Social History Tobacco Use Types Packs/Day Years Used Date Smoking Tobacco: Never Assessed Alcohol Use Standard Drinks/Week Comments Yes 0 (1 standard drink = 0.6 oz pur e alcohol) Comments No Sex and Gender Information Value Date Recorded Sex Assigned at Not on file Legal Sex Female 10:01 AM LACE SEWER Gender Identity Not on file Sexual Orientation Not on file documented as of this encounter Plan of Treatment Not on file documented as of this encounter Visit Diagnoses Not on filedocumented in this encounter Care Teams Steamfitter Apprentice Relationship Specialty Start Date End Date Jer Coelho DO [address] [facility] [employer] [place], [place] [id number] PCP - General 01/20/11 documented as of this encounter
--- OUTSIDE RECORDS SUMMARY | 2024-02-19 21:03 | XMS_ITS | Referral Summary ---
Author Organization [facility] Address [address] [place] [address] Lab Technician Name Role Phone Jer Coelho DO Primary Care Provider +1- [phone] Encounters Date Type Department Care Team Description 12/18/2023 8:30 AM BUSINESS MANAGEMENT ASSOCIATE Clinical Support [facility] [address] [facility] [address] [place] [address] Age-related osteoporosis without current pathological fracture (Primary Dx) 12/07/[address] [place] [address] Yara Robb RN from Last 3 Months Allergies No known active allergies Medications meclizine [...] state 11/18/2008 Overview (05/17/2016): ANXIETY STATE NOS Social History Tobacco Use Types Packs/Day Years Used Date Smoking Tobacco: Never Assessed Alcohol Use Standard Drinks/Week Comments Yes 0 (1 standard drink = 0.6 oz pur e alcohol) Comments No Sex and Gender Information Value Date Recorded Sex Assigned at Not on file Legal Sex Female 10:01 AM BUSINESS MANAGEMENT ASSOCIATE Gender Identity Not on file Sexual Orientation Not on file Last Filed Vital Signs Vital Sign Reading Time Taken Comments Blood Pressure 152/97 12/18/2023 8:26 AM BUSINESS MANAGEMENT ASSOCIATE Pulse 77 12/18/2023 8:26 AM BUSINESS MANAGEMENT ASSOCIATE Temperature 35.9 ??C (96.6 ??F) 12/18/2023 8:26 AM CS T Respiratory Rate 16 12/18/2023 8:26 AM BUSINESS MANAGEMENT ASSOCIATE Oxygen Saturation 99% 12/18/2023 8:26 AM BUSINESS MANAGEMENT ASSOCIATE Inhaled Oxygen Concentration - - Weight 55.8 kg (123 lb) 05/16/2019 8:08 AM CDT Height 157.5 cm (5' 2 ) 05/16/2019 8:08 AM CDT Body Mass Index 22.5 05/16/2019 8:08 AM CDT Plan of Treatment Not on file Insurance [facility] [employer] MEDICARE [facility] Address: [address] [address] [place] [address] Lab Technician Relationship Specialty Start Date End Date Jer Coelho DO [address] [place] [address] PCP - General 01/20/11
--- OUTSIDE RECORDS SUMMARY | 2024-02-19 21:03 | XMS_ITS | Encounter Summary ---
Author Organization [facility] Healthcare Address [address] [place] [address] Care Team Providers Care Supervisor Claims Name Role Phone Jer Coelho DO Primary Care Provider [phone]- [phone] Reason for Visit * Reason Comments Cough Nausea Dizziness Encounter Details Date Type Department Care Team (Late st Contact Info) Description 05/16/2019 8:00 AM CDT - 05/16/2019 10:24 AM CDT Emergency [facility] Emergency Department [address] [place] [address] Wilfrid Nogueira MD [address] [address] Dizziness (Primary Dx) Discharge Disposition: Discharge to home or self care Social History Tobacco Use Types Packs/Day Years Used Date Smoking Tobacco: Never Assessed Alcohol Use Standard Drinks/Week Comments Yes 0 (1 standard drink = 0.6 oz pur e alcohol) Comments No Sex and Gender Information Value Date Recorded Sex Assigned at Not on file Legal Sex Female 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 Gender Identity Not on file Sexual Orientation Not on file documented as of this encounter Last Filed Vital Signs Vital Sign Reading Time Taken Comments Blood Pressure 149/84 05/16/2019 9:00 AM CDT Pulse 64 05/16/2019 9:05 AM CDT Temperature 36.7 ??C (98.1 ??F) 05/16/2019 8:08 AM CD T Respiratory Rate 15 05/16/2019 8:08 AM CDT Oxygen Saturation 96% 05/16/2019 9:05 AM CDT Inhaled Oxygen Concentration - - Weight 55.8 kg (123 lb) 05/16/2019 8:08 AM CDT Height 157.5 cm (5' 2 ) 05/16/2019 8:08 AM CDT Body Mass Index 22.5 05/16/2019 8:08 AM CDT documented in this encounter Discharge Diagnoses Diagnosis Dizziness and giddiness - DIZZINESS AND GIDDINESS Essential (primary) hypertension - ESSENTIAL (PRIMARY) HYPERTENSION Unspecified essential hypertension documented in this encounter Discharge Instructions * Attachments The following attachments cannot be sent through Care Everywhere. * Dizziness, Uncertain Cause (Bulgarian) documented in this encounter Medications at Time of Discharge meclizine (ANTIVERT) 25 mg tablet Take 1 tablet (25 mg total) by mouth 3 (three) times a day as needed for dizziness 30 tablet 05/16/2019 documented as of this encounter Ordered Prescriptions Prescription Sig Dispense Quantity Refills Last Filled Start Date End Date meclizine (ANTIVERT) 25 mg tablet Take 1 tablet (25 mg total) by mouth 3 (three) times a day as needed for dizziness 30 tablet 05/16/2019 documented in this encounter Discharge Disposition Disposition Code Departure Means Destination Comment s Discharge to home or self [facility] documented in this encounter ED Notes * Wilfrid Nogueira MD - 05/16/2019 8:27 AM CDT HPI Chief Complaint Patient presents with ??? Cough ??? Nausea ??? Dizziness HPI 8:15 AM Roxanna Sierra is a 59 y.o. female with a h/o HTN, allergies who presents to the ED with complaints of nausea and dizziness for 1 day. Denies vomiting, abdominal pain, fever, chest pain, SOB, BRYANT, or syncope. No unilateral numbness or weakness. She denies significant PMHx including diabetes. No additional complaints at this time. Patient History Patient Active Problem List Diagnosis Date Noted ??? Chronic obstructive pulmonary disease (CMS/HCC) 08/02/2011 Class: Chronic ??? Benign hypertension 01/20/2011 Class: Chronic ??? Anxiety state 11/18/2008 Class: Chronic Past Medical History: Diagnosis Date ??? HX OTHER MEDICAL Macular Pattern Dystrophy ??? HX OTHER MEDICAL 1999 benign mass ??? 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 Pneumonia Pneumonia Past Surgical History: Procedure Laterality Date ??? SECTION section ??? SECTION 1993 section ??? SECTION 1997 section ??? HYSTERECTOMY Hysterectomy ??? OTHER SURGICAL HISTORY 1998 benign mass: R oophrectomy Family History Problem Relation Age of Onset ??? Other Mother Alive and well; ??? Hyperlipidemia Mother 75 Hyperlipidemia; /Hyperlipidemia; ??? Thyroid disease Mother thyroid disorder; ??? Other Father Alive and well; ??? Prostate cancer Father Cancer -prostate; ??? Hypertension Father Hypertension; ??? Throat cancer Paternal Grandfather Cancer -throat; Cause of : Cancer -throat ??? Stomach cancer Maternal Grandmother Cancer -stomach; Cause of : Cancer -stomach ??? Other Brother Alive and well; ??? Other Sister Alive and well; ??? Heart failure Maternal Grandfather CHF; Social History Tobacco Use ??? Smoking status: Not on file Substance Use Topics ??? Alcohol use: Yes ??? Drug use: Not on file Social History Social History Narrative ??? Not on file Review of Systems Review of Systems Constitutional: Negative for chills and fever. HENT: Negative for ear pain and sore throat. Eyes: Negative for pain and visual disturbance. Respiratory: Negative for cough and shortness of breath. Cardiovascular: Negative for chest pain and palpitations. Gastrointestinal: Positive for nausea. Negative for abdominal pain and vomiting. Genitourinary: Negative for dysuria and hematuria. Musculoskeletal: Negative for arthralgias and back pain. Skin: Negative for color change and rash. Neurological: Positive for dizziness. Negative for seizures, syncope, facial asymmetry, speech difficulty, weakness, numbness and headaches. All other systems reviewed and are negative. Physical Exam ED Triage Vitals Temp Pulse Resp BP SpO2 05/16/19 0808 05/16/19 0805 05/16/19 0808 05/16/19 0805 05/16/19 0805 36.7 ??C (98.1 ??F) (!) 25 15 145/91 (!) 62 % Temp src Heart Rate Source Patient Position BP Location FiO2 (%) 05/16/19 0808 -- -- -- -- Oral Physical Exam Vitals signs and nursing note reviewed. Constitutional: Appearance: Normal appearance. HENT: Head: Normocephalic and atraumatic. Nose: Nose normal. Mouth/Throat: Mouth: Mucous membranes are moist. Eyes: Extraocular Movements: Extraocular movements intact. Pupils: Pupils are equal, round, and reactive to light. Neck: Musculoskeletal: Normal range of motion. Cardiovascular: Rate and Rhythm: Normal rate and regular rhythm. Pulses: Normal pulses. Heart sounds: Normal heart sounds. Pulmonary: Effort: Pulmonary effort is normal. Breath sounds: Normal breath sounds. Abdominal: General: Abdomen is flat. Palpations: Abdomen is soft. Tenderness: There is no abdominal tenderness. Musculoskeletal: Normal range of motion. Skin: General: Skin is warm. Capillary Refill: Capillary refill takes less than 2 seconds. Neurological: General: No focal deficit present. Mental Status: She is alert and oriented to person, place, and time. MDM Patient Vitals for the past 24 hrs: BP Temp Temp src Pulse Resp SpO2 Height Weight 05/16/19 0905 -- -- -- 64 -- 96 % -- -- 05/16/19 0900 149/84 -- -- 63 -- 96 % -- -- 05/16/19 0855 -- -- -- 63 -- 96 % -- -- 05/16/19 0850 -- -- -- 64 -- 97 % -- -- 05/16/19 0845 146/81 -- -- 59 -- 97 % -- -- 05/16/19 0840 -- -- -- 59 -- 97 % -- -- 05/16/19 0835 -- -- -- 64 -- 99 % -- -- 05/16/19 0830 155/86 -- -- 61 -- 96 % -- -- 05/16/19 0825 -- -- -- 63 -- 97 % -- -- 05/16/19 0820 -- -- -- 64 -- 97 % -- -- 05/16/19 0815 161/86 -- -- 59 -- 97 % -- -- 05/16/19 0810 -- -- -- 62 -- 96 % -- -- 05/16/19 0808 154/91 36.7 ??C (98.1 ??F) Oral 63 15 96 % 157.5 cm (5' 2 ) 55.8 kg (123 lb) 05/16/19 0805 145/91 -- -- (!) 25 -- (!) 62 % -- -- Labs Reviewed CBC WITH AUTO DIFFERENTIAL Result Value WBC 6.2 Hgb 13.5 Hct 39.1 Plt 235 MPV 10.0 RBC 4.36 MCV 89.7 MCH 31.0 MCHC 34.5 RDW CV 13.6 RDW SD 44.6 NRBC abs 0.00 COMPREHENSIVE METABOLIC PANEL Sodium 139 Potassium, pl 4.4 Chloride 103 CO2 24 Anion gap 12 BUN 22 Creatinine 0.66 Glucose 111 Calcium 9.8 Bilirubin, total 0.7 Protein, pl 6.7 Albumin 4.5 Alk phos 45 ALT 19 AST 21 TROPONIN T Troponin T <0.01 PROTIME-INR PT 10.3 INR 0.9 DIFFERENTIAL AUTO Neutrophil abs 4.1 Imm gran abs 0.0 Lymphocyte abs 1.5 Monocyte abs 0.6 Eosinophil abs 0.1 Basophil abs 0.1 Neutrophil pct 65.1 Imm gran pct 0.3 Lymphocyte pct 23.7 Monocyte pct 8.8 Eosinophil pct 1.0 Basophil pct 1.[address] Head WO Contrast Final Result BP 149/84 Pulse 64 Temp 36.7 ??C (98.1 ??F) (Oral) Resp 15 Ht 157.5 cm (5' 2 ) Wt 55.8 kg(123 lb) SpO2 96% BMI 22.50 kg/m?? Procedures MDM Scribe did not enter room and physician wore appropriate PPE. Final diagnoses: Dizziness This note is prepared by Sadaf Patel, acting for and in the presence of Wilfrid Nogueira MD. I electronically signed this note at 9:53 AM 05/16/2019. I, Wilfrid Nogueira MD, have personally performed the services described in the documentation , reviewed the documentation, as recorded by the scribe in my presence, and it accurately and completely records my words and actions. Wilfrid Nogueira MD 05/16/19 0953 * Poornima Novak, YON - 05/16/2019 8:07 AM CDT Pt presents to the Ed with complaints of nausea for roughly a day and a half and a cough that she has had for three weeks. Pt denies SOB and fever at this time. documented in this encounter Miscellaneous Notes * ED Procedure Note - Wilfrid Nogueira MD - 05/16/2019 8:42 AM CDTAssociated Order(s): ECG 12 lead Procedure ECG 12 lead Date/Time: 05/16/2019 8:42 AM Performed by: Wilfrid Nogueira MD Authorized by: Wilfrid Nogueira MD Rate: ECG rate: 59 ECG rate assessment: normal Rhythm: Rhythm: sinus rhythm Ectopy: Ectopy: none QRS: QRS axis: Normal QRS intervals: Normal Conduction: Conduction: normal ST segments: ST segments: Normal T waves: T waves: normal Interpretation: Interpretation: normal Wilfrid Nogueira MD 05/16/19 0842 documented in this encounter Plan of Treatment Not on file documented as of this encounter Procedures Procedure Name Priority Date/Time Associated Diagnosis Comments CT HEAD WO CONTRAST ED 05/16/2019 9 :16 AM CDT EGFR STAT 05/16/2019 8:24 AM CDT DIFFERENTIAL AUTO STAT 05/16/2019 8:2 4 AM CDT CBC WITH AUTO DIFFERENTIAL STAT 05/16/2019 8:24 AM CDT PROTIME-INR STAT 05/16/2019 8:24 AM CDT TROPONIN T STAT 05/16/2019 8:24 AM CDT COMPREHENSIVE METABOLIC PANEL STAT 05/16/2019 8:24 AM CDT ECG 12-LEAD STAT 05/16/2019 8:14 AM CDT documented in this encounter Results * CT Head WO Contrast (05/16/2019 9:16 AM CDT) Anatomical Region Laterality Modality Head and Neck N/A Computed Tomogra phy 05/16/2019 9:05 AM CDT Narrative 05/16/2019 9:42 AM CDT [facility] ?Imaging Result Name: ROXANNA SIERRA ? Ordering Phys: WILFRID NOGUEIRA Age: 59 ?Date of : 1960 ? Accession Number: [id number] Date of Service: 05/16/2019 ??Gender: F EXAM DESCRIPTION: ??CT HEAD WO CONTRAST REASON FOR STUDY: ??59-year-old with dizziness and nausea starting yesterday morning. TECHNIQUE: ??Axial images acquired through the brain without intravenous contrast. ??Coronal and sagittal reformatted images were obtained. ??Images stored on PACS. ?? Automated exposure control was used as a dose optimization technique for this examination. COMPARISON: ??None available ??BRAIN: No acute intracranial hemorrhage, mass effect, or midline shift. ??Normal caro-white matter differentiation with no evidence of acute territorial ischemia. ??Basilar cisterns patent. EXTRA-AXIAL SPACES: No extra-axial fluid collection or mass. CALVARIUM: No acute fracture or aggressive bone lesion. SINUSES/MASTOIDS: No fluid or mucosal thickening. ORBITS: No significant abnormality. OTHER: No other significant abnormality. ??No CT evidence of an acute intracranial abnormality. THIS IS AN ELECTRONICALLY VERIFIED FINAL REPORT 05/16/2019 9:38 AM - Electronically signed by Jeremiah Ladd M.D., MD: D: ??05/16/2019 9:38 AM T: ??05/16/2019 9:38 AM Report ID: [id number] Reading Location: ??[id number] Procedure Note Jeremiah Ladd MD - 05/16/2019 [facility] Imaging Result Name: ROXANNA SIERRA Ordering Phys: WILFRID NOGUEIRA Age: 59 Date of : 1960 Accession Number: [id number] Date of Service: 05/16/2019 Gender: F EXAM DESCRIPTION: CT HEAD WO CONTRAST REASON FOR STUDY: 59-year-old with dizziness and nausea startingyesterday morning. TECHNIQUE: Axial images acquired through the brain without intravenous contrast. Coronal and sagittal reformatted images were obtained.Images stored on PACS. Automated exposure control was used as a doseoptimization technique for this examination. COMPARISON: None available BRAIN: No acute intracranial hemorrhage, mass effect, or midline shift. Normal caro-white matter differentiation with no evidence ofacute territorial ischemia. Basilar cisterns patent. EXTRA-AXIAL SPACES: No extra-axial fluid collection or mass. CALVARIUM: No acute fracture or aggressive bone lesion. SINUSES/MASTOIDS: No fluid or mucosal thickening. ORBITS: No significant abnormality. OTHER: No other significant abnormality. No CT evidence of an acute intracranial abnormality. THIS IS AN ELECTRONICALLY VERIFIED FINAL REPORT 05/16/2019 9:38 AM - Electronically signed by Jeremiah Ladd M.D. MD: Report ID: [id number] Reading Location: [place] [address] Wilfrid Nogueira MD IM CT PROCEDURES Final Result * eGFR (05/16/2019 8:24 AM CDT) eGFR 95 mL/min/1.7 3 m2 [facility] ([place]) Comment: Interpretive Data Reference Interval Normal ?>/= 90 mL/min/1.73m2 Mildly decreased* ? 60 - 89 mL/min/1.73m2 Mildly to moderately decreased ?45 - 59 mL/min/1.73m2 Moderately to severely decreased ??30 - 44 mL/min/1.73m2 Severely decreased ?15 - 29 mL/min/1.73m2 Kidney Failure ?< 15 ??mL/min/1.73m2 *Relative to young adult level If -[place] multiply value by 1.16. Estimated glomerular filtration rate is determined by the CKD-EPI equation recommended by the National Kidney Foundation (KDIGO 2012 Clinical Practice Guideline for the Evaluation and Management of Chronic Kidney Disease. Kidney Intnl Suppl Feb 2012;3:1). The CKD-EPI equation should not be used for patients with unstable renal function and has not been validated in children and those over 70. Current interpretive data was last reviewed 2015. Blood specimen (specimen) 05/16/2019 8:24 AM CDT 05/16/2019 8:26 AM CDT us Wilfrid Nogueira MD LAB BLOOD ORDERABLES Final Res ult [facility] ([place]) 1 [facility] Department [place] [address] * Differential, auto (05/16/2019 8:24 AM CDT) Neutrophil abs 4.1 1.7 - 6.5 K/cumm [facility] ([place]) Imm gran abs 0.0 0.0 - 0.1 K/cumm [facility] ([place]) Lymphocyte abs 1.5 0.8 - 3.3 K/cumm [facility] ([place]) Monocyte abs 0.6 0.2 - 0.8 K/cumm [facility] ([place]) Eosinophil abs 0.1 0.0 - 0.5 K/cumm [facility] ([place]) Basophil abs 0.1 0.0 - 0.1 K/cumm [facility] ([place]) Neutrophil pct 65.1 % [facility] ([place]) Comment: Interpretive Data Percent cell count reference ranges are not reported, since discordance with absolute values may lead to misinterpretation of CBC data. Current Interpretive Data was last revised on 2017. Imm gran pct 0.3 % [facility] ([place]) Comment: Interpretive Data Percent cell count reference ranges are not reported, since discordance with absolute values may lead to misinterpretation of CBC data. Current Interpretive Data was last revised on 2017. Lymphocyte pct 23.7 % [facility] ([place]) Comment: Interpretive Data Percent cell count reference ranges are not reported, since discordance with absolute values may lead to misinterpretation of CBC data. Current Interpretive Data was last revised on 2017. Monocyte pct 8.8 % [facility] ([place]) Comment: Interpretive Data Percent cell count reference ranges are not reported, since discordance with absolute values may lead to misinterpretation of CBC data. Current Interpretive Data was last revised on 2017. Eosinophil pct 1.0 % [facility] ([place]) Comment: Interpretive Data Percent cell count reference ranges are not reported, since discordance with absolute values may lead to misinterpretation of CBC data. Current Interpretive Data was last revised on 2017. Basophil pct 1.1 % [facility] ([place]) Comment: Interpretive Data Percent cell count reference ranges are not reported, since discordance with absolute values may lead to misinterpretation of CBC data. Current Interpretive Data was last revised on 2017. Blood specimen (specimen) 05/16/2019 8:24 AM CDT 05/16/2019 8:26 AM CDT us Wilfrid Nogueira MD LAB BLOOD ORDERABLES Final Res ult [facility] ([place]) 1 [facility] Department [place] [address] * Protime-INR (05/16/2019 8:24 AM CDT) PT 10.3 9.5 - 13.0 sec [facility] ([place]) INR 0.9 0.9 - 1.2 [facility] ([place]) Comment: Interpretive data Oral anticoagulant therapeutic ranges: Venous thromboembolism prophylaxis or treatment: 2.0-3.0 CARDIOLOGY Standard range: 2.0-3.0 High-intensity range: 2.5-3.5 Refer to indication-specific guidelines for appropriate target ranges for prosthetic heart valve replacement. Current interpretive data was last revised on 2019. Blood specimen (specimen) 05/16/2019 8:24 AM CDT 05/16/2019 8:26 AM CDT Wilfrid Nogueira MD LAB BLOOD ORDERABLES Final Res ult Performing Organization Address City/[facility] Co de Phone Number [facility] [place]) 1 [facility] [place] [address] * Troponin T (05/16/2019 8:24 AM CDT) Troponin T <0.01 0.00 - 0.01 ng/mL [facility] ([place]) Comment: Interpretive Data Reference ranges for children <18 years of age have not been established. - > or = 18 years: Serial determinations are recommended for the diagnosis of myocardial infarction. ??Temporal rise and fall are consistent with myocardial infarction when at least one value is above the 99th percentile upper reference limit for troponin assay. ??Journal of the [place] College of Cardiology 2012;60:1581-98. Current Interpretive Data Last Revised Date: 2017. Blood specimen (specimen) 05/16/2019 8:24 AM CDT 05/16/2019 8:26 AM CDT Wilfrid Nogueira MD LAB BLOOD ORDERABLES Final Res ult Performing Organization Address [facility] Co de Phone Number [facility] [place]) 1 [facility] [place] [address] * Comprehensive metabolic panel (05/16/2019 8:24 AM CDT) Sodium 139 135 - 145 mmol/L [facility] ([place]) Potassium, pl 4.4 3.3 - 4.9 mmol/L [facility] ([place]) Chloride 103 97 - 110 mmol/L [facility] ([place]) CO2 24 22 - 32 mmol/L [facility] ([place]) Anion gap 12 2 - 15 mmol/L [facility] ([place]) BUN 22 8 - 25 mg/dL [facility] ([place]) Creatinine 0.66 0.60 - 1.10 mg/dL [facility] ([place]) Glucose 111 70 - 199 mg/dL [facility] ([place]) Comment: Interpretive Data Fasting glucose >/= 126 mg/dl is diagnostic for diabetes. ?? Fasting is defined as no caloric intake for at least 8 hours. Fasting glucose between 100 mg/dl to 125 mg/dl is diagnostic of prediabetes. In a patient with classic symptoms of hyperglycemia or hyperglycemic crisis, a random glucose >/= 200 mg/dl is diagnostic for diabetes. In the absence of unequivocal hyperglycemia, results should be confirmed by repeat testing. The classification and Diagnosis of Diabetes Diabetes Care 2017;40 (Suppl. 1):S11. Current interpretive data was last revised 2016. Calcium 9.8 8.5 - 10.3 mg/dL [facility] ([place]) Bilirubin, total 0.7 0.1 - 1.2 mg/dL [facility] ([place]) Protein, pl 6.7 6.5 - 8.5 g/dL [facility] ([place]) Albumin 4.5 3.5 - 5.0 g/dL [facility] ([place]) Alk phos 45 40 - 130 Units/L [facility] ([place]) ALT 19 7 - 45 Units/L [facility] ([place]) AST 21 10 - 45 Units/L [facility] ([place]) Blood specimen (specimen) 05/16/2019 8:24 AM CDT 05/16/2019 8:26 AM CDT us Wilfrid Nogueira MD LAB BLOOD ORDERABLES Final Res ult [facility] ([place]) 1 [facility] Department [place] [address] * CBC with auto differential (05/16/2019 8:24 AM CDT) WBC 6.2 3.8 - 9.9 K/cumm [facility] ([place]) Hgb 13.5 11.9 - 15.5 g/dL [facility] ([place]) Hct 39.1 35.6 - 45.5 % [facility] ([place]) Plt 235 150 - 400 K/cumm [facility] ([place]) MPV 10.0 9.1 - 12.3 fL [facility] ([place]) RBC 4.36 3.90 - 5.20 M/cumm [facility] ([place]) MCV 89.7 81.3 - 96.4 fL [facility] ([place]) MCH 31.0 27.1 - 33.3 pg [facility] ([place]) MCHC 34.5 32.3 - 35.7 g/dL [facility] ([place]) RDW CV 13.6 11.1 - 14.9 % [facility] ([place]) RDW SD 44.6 35.7 - 48.1 fL [facility] ([place]) NRBC abs 0.00 0.00 - 0.01 K/cumm [facility] ([place]) Blood specimen (specimen) 05/16/2019 8:24 AM CDT 05/16/2019 8:26 AM CDT us Wilfrid Nogueira MD LAB BLOOD ORDERABLES Final Res ult Performing Organization Address City/[facility] Co de Phone Number [facility] ([place]) 1 [facility] Department [place] [address] * ECG 12 lead (05/16/2019 8:14 AM CDT) 05/16/2019 8:14 AM CDT Narrative [facility] - 05/16/2019 10:31 AM CDT Vent Rate: 59 bpm RR Interval: 1006 msec OK Interval: 122 msec QRS Duration: 89 msec QT Interval: 367 msec QTC Interval: 367 msec P-R-T [place]: 61 - 30 - 36 degrees SINUS BRADYCARDIA POSSIBLE LEFT ATRIAL ENLARGEMENT ??[-0.1mV P WAVE IN V1/V2] BORDERLINE ECG Electronically Signed By: Andi Rios MD us Wilfrid Nogueira MD ECG ORDERABLES Final Result Performing Organization Address [facility] Co de Phone Number [facility] documented in this encounter Visit Diagnoses Diagnosis Dizziness- Primary Dizziness and giddiness documented in this encounter Care Teams Supervisor Claims Relationship Specialty Start Date End Date Jer Coelho DO [address] [facility] [place] [address] PCP - General 01/20/11 documented as of this encounter
--- OUTSIDE RECORDS SUMMARY | 2024-02-19 21:03 | XMS_ITS | Encounter Summary ---
Author Organization [facility] Healthcare Address [address] [place] [address] Care Team Providers Care Casting And Locker Room Servicer Name Role Phone Jer Coelho DO Primary Care Provider +1- [phone] Encounter Details Date Type Department Care Team (Late st Contact Info) Description 12/07/[address] [place] [address] Yara Fierro RN Social History Tobacco Use Types Packs/Day Years Used Date Smoking Tobacco: Never Assessed Alcohol Use Standard Drinks/Week Comments Yes 0 (1 standard drink = 0.6 oz pur e alcohol) Comments No Sex and Gender Information Value Date Recorded Sex Assigned at Not on file 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 Called patient at this time and scheduled. Alsoverified her new insurance of medicare a & b and IDPA and that she has no dental problems at this time. Patient confirmed date and time and was informed where to come for the injection. documented in this encounter Plan of Treatment Not on file documented as of this encounter Visit Diagnoses Not on filedocumented in this encounter Care Teams Casting And Locker Room Servicer Relationship Specialty Start Date End Date Jer Coelho DO [address] [place] [address] PCP - General 01/20/11 documented as of this encounter
--- OUTSIDE RECORDS SUMMARY | 2024-02-19 21:03 | XMS_ITS | Encounter Summary ---
Author Organization [facility] Healthcare Address [address] [place] [address] Care Team Providers Care Machine Setter Automatic Name Role Phone Jer Coelho DO Primary Care Provider [phone]- [phone] Encounter Details Date Type Department Care Team (Late st Contact Info) Description 10/08/2008 7:54 PM CDT - 10/08/2008 8:45 PM CDT Hospital Encounter [facility] Hernan Lopez MD [address] [place] [address] Jer Coelho DO [address] [place] [address] Open wound of finger with complication; Accidents caused by knives, swords and daggers; Place of occurrence, home Social History Tobacco Use Types Packs/Day Years Used Date Smoking Tobacco: Never Assessed Alcohol Use Standard Drinks/Week Comments No 0 (1 standard drink = 0.6 oz pur e alcohol) Comments Unknown Sex and Gender Information Value Date Recorded Sex Assigned at Not on file 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 Gender Identity Not on file Sexual Orientation Not on file documented as of this encounter Plan of Treatment Not on file documented as of this encounter Visit Diagnoses Diagnosis Open wound of finger with complication Open wound of finger(s) , complicated Accidents caused by knives, swords and daggers Accident caused by knives, swords, and daggers Place of occurrence, home documented in this encounter Care Teams Machine Setter Automatic Relationship Specialty Start Date End Date Jer Coelho DO [address] [place] [address] PCP - General 01/31/08 01/19/11 documented as of this encounter
--- OUTSIDE RECORDS SUMMARY | 2024-02-19 21:03 | XMS_ITS | Encounter Summary ---
Author Organization [facility] Healthcare Address [address] [place] [address] Care Team Providers Care Power Plant Operator Name Role Phone Jer Coelho DO Primary Care Provider [phone]- [phone] Encounter Details Date Type Department Care Team (Late st Contact Info) Description 11/27/2008 12:01 AM CDT - 11/27/2008 11:59 PM CDT Hospital Encounter [facility] Jer Coelho DO [address] [facility] [place] [address] Enlarged lymph nodes Social History Tobacco Use Types Packs/Day Years Used Date Smoking Tobacco: Never Assessed Alcohol Use Standard Drinks/Week Comments No 0 (1 standard drink = 0.6 oz pur e alcohol) Comments Unknown Sex and Gender Information Value Date Recorded Sex Assigned at Not on file Legal 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
--- OUTSIDE RECORDS SUMMARY | 2024-02-19 21:35 | XMS_ITS ---
Author Organization [facility] Address [address] [place] [address] Phone Care Team Providers Care Ordering Box Operator Name Role Phone LOWELL LIMA, OLIVE Prieto Primary Care Provider [phone] HYUN LIMA, DENY Greenberg Unavailable [phone] Reason for Referral Date Encounter Description Provider Reason for Referral 06/01/14 ANNUAL MANAGER DISASTER RECOVERY EXAM MEHNAZ LEBRON [facility] Req uest Consultation By Specialist Problems Includes: Active, inactive, and resolved Problems All Visits Onset Date Resolved Date Provider Condition S tatus Osteoporosis 06/01/2014 MEHNAZ LEBRON [facility] Active Last Documented On 12/06/2015 2:03PM ; [facility] Note: DEXA - femoral neck only! Asthma 10/24/2012 MEHNAZ LEBRON [facility] Active Last Documented On 3 3:28PM ; [facility] Hypertension Systemic 10/24/2012 MEHNAZ LEBRON [facility] Active Last Documented On 3 3:27PM ; [facility] Plan of Treatment Findings Encounter Date Ordered Clinical summary pro vided to patient ANNUAL MANAGER DISASTER RECOVERY EXAM with MEHNAZ LEBRON [facility]NP[facility] 09/17/2017 Last Documented On 8 3:20PM ; [facility] Ordered follow-up visit 1 ye ar or as needed ANNUAL MANAGER DISASTER RECOVERY EXAM with MEHNAZ LEBRON [facility] 09/17/2017 Last Documented On 8 3:20PM ; [facility] Ordered Clinical summary pro vided to patient ANNUAL MANAGER DISASTER RECOVERY EXAM with MEHNAZ LEBRON [facility] 12/06/2015 Last Documented On 6 2:16PM ; [facility] Ordered follow-up visit 1 ye ar or as needed ANNUAL MANAGER DISASTER RECOVERY EXAM with MEHNAZ LEBRON [facility]- 12/06/2015 Last Documented On 6 2:16PM ; [facility] Ordered Clinical summary pro vided to patient ANNUAL MANAGER DISASTER RECOVERY EXAM with MEHNAZ LEBRON [facility]- 06/01/2014 Last Documented On 5 2:57PM ; [facility] Ordered follow-up visit 1 ye ar or as needed ANNUAL MANAGER DISASTER RECOVERY EXAM with MEHNAZ LEBRON [facility]- 06/01/2014 Last Documented On 5 2:57PM ; [facility] Ordered Transition in care, clinical summary provided ANNUAL MANAGER DISASTER RECOVERY EXAM with MEHNAZ LEBRON [facility]- 06/01/2014 Last Documented On 5 2:57PM ; [facility] Ordered Clinical summary pro vided to patient ANNUAL MANAGER DISASTER RECOVERY EXAM with MEHNAZ LEBRON [facility]- 10/24/2012 Last Documented On 3 3:38PM ; [facility] Ordered follow-up visit 1 ye ar or as needed ANNUAL MANAGER DISASTER RECOVERY EXAM with MEHNAZ LEBRON [facility] 10/24/2012 Last Documented On 3 3:38PM ; [facility] No c/o. Denies any post-eric pausal bleeding. She does c/o some vaginal dryness and would like to try Estrace cream. Samples given and she will call if refills desired or if sx increase or persist ANNUAL MANAGER DISASTER RECOVERY EXAM with MEHNAZ LEBRON [facility] 04/17/2011 Last Documented On 2 9:38AM ; [facility] Ordered follow-up visit 1 ye ar or as needed ANNUAL MANAGER DISASTER RECOVERY EXAM with MEHNAZ LEBRON [facility] 04/17/2011 Last Documented On 2 9:38AM ; [facility] Ordered follow-up visit 1 ye ar or as needed LEAD DESIGNER EXAM with MEHNAZ LEBRON [facility] 03/28/2010 Last Documented On 1 2:12PM ; [facility] Instructions to patient Instructions for patient : B reast Self Exam discussed Last Documented On 8 3:09PM ; [facility] Colonoscopy Handout given to patient Last Documented On 8 3:10PM ; [facility] Instructions for patient : B reast Self Exam discussed Last Documented On 6 1:58PM ; [facility] Colonoscopy Handout given to patient Last Documented On 6 1:59PM ; [facility] Instructions for patient : B reast Self Exam discussed Last Documented On 5 2:43PM ; [facility] Instructions for patient : B reast Self Exam discussed Last Documented On 3 3:16PM ; [facility] Colonoscopy Handout given to patient Last Documented On 3 3:19PM ; [facility] Instructions for patient : B reast Self Exam discussed Last Documented On 2 9:13AM ; [facility] Colonoscopy Handout given to patient Last Documented On 2 9:14AM ; [facility] Instructions for patient : B reast Self Exam discussed Last Documented On 1 1:55PM ; [facility] Safe sex counseling Last Documented On 1 2:11PM ; [facility] Instructions for patient : B reast Self Exam discussed Last Documented On 0 8:55AM ; [facility] Education and Decision Aids were provided during visit for: Patient Education: Daily félix cium and vitamin D Last Documented On 8 3:09PM ; [facility] Patient Education: weight be aring exercise Last Documented On 8 3:09PM ; [facility] Patient Education: Daily félix cium and vitamin D Last Documented On 6 1:58PM ; [facility] Patient Education: weight be aring exercise Last Documented On 6 1:58PM ; [facility] Patient Education: Daily félix cium and vitamin D Last Documented On 5 2:43PM ; [facility] Patient Education: weight be aring exercise Last Documented On 5 2:43PM ; [facility] Patient Education: Daily félix cium and vitamin D Last Documented On 3 3:16PM ; [facility] Patient Education: weight be aring exercise Last Documented On 3 3:16PM ; [facility] Patient Education: Daily félix cium and vitamin D Last Documented On 2 9:13AM ; [facility] Patient Education: weight be aring exercise Last Documented On 2 9:13AM ; [facility] Patient Education: Daily félix cium and vitamin D Last Documented On 1 1:55PM ; [facility] Patient Education: weight be aring exercise Last Documented On 1 1:55PM ; [facility] Patient Education: Daily félix cium and vitamin D Last Documented On 0 8:55AM ; [facility] Patient Education: weight be aring exercise Last Documented On 0 8:55AM ; [facility] Assessments Includes: Assessments for all patient encounters Findings Encounter Date NORMAL FEMALE EXAM ANNUAL MANAGER DISASTER RECOVERY EXAM with MEHNAZMUSA LEBRON [facility] 09/17/2017 Last Documented On 8 3:20PM ; [facility] Screening Malig. Neoplasm Rectum ANNUAL MANAGER DISASTER RECOVERY EXAM with MEHNAZMUSA LEBRON [facility] 09/17/2017 Last Documented On 8 3:20PM ; [facility] NORMAL FEMALE EXAM ANNUAL MANAGER DISASTER RECOVERY EXAM with MEHNAZMUSA LEBRON [facility] 12/06/2015 Last Documented On 6 2:16PM ; [facility] Screening Malig. Neoplasm Rectum ANNUAL MANAGER DISASTER RECOVERY EXAM with MEHNAZMUSA LEBRON [facility] 12/06/2015 Last Documented On 6 2:16PM ; [facility] NORMAL FEMALE EXAM ANNUAL MANAGER DISASTER RECOVERY EXAM with MEHNAZMUSA LEBRON [facility] 06/01/2014 Last Documented On 5 2:57PM ; [facility] Screening Malig. Neoplasm Rectum ANNUAL MANAGER DISASTER RECOVERY EXAM with MEHNAZ Yari LEBRON [facility] 06/01/2014 Last Documented On 5 2:57PM ; [facility] NORMAL FEMALE EXAM ANNUAL MANAGER DISASTER RECOVERY EXAM with MEHNAZ Yari LEBRON [facility] 10/24/2012 Last Documented On 3 3:38PM ; [facility] Screening Malig. Neoplasm Rectum ANNUAL MANAGER DISASTER RECOVERY EXAM with MEHNAZ A LEBRON [facility] 10/24/2012 Last Documented On 3 3:38PM ; [facility] NORMAL FEMALE EXAM ANNUAL MANAGER DISASTER RECOVERY EXAM with MEHNAZMUSA LEBRON [facility] 04/17/2011 Last Documented On 2 9:38AM ; [facility] Screening Malig. Neoplasm Rectum ANNUAL MANAGER DISASTER RECOVERY EXAM with MEHNAZ LEBRON [facility]- 04/17/2011 Last Documented On 2 9:38AM ; [facility] NORMAL FEMALE EXAM LEAD DESIGNER EXAM with MEHNAZ Cruz [facility]- 03/28/2010 Last Documented On 1 2:12PM ; [facility] Screening Malig. Neoplasm Rectum LEAD DESIGNER EXAM with Ida LEBRON [facility]- 03/28/2010 Last Documented On 1 2:12PM ; [facility] Normal routine history and physical LEAD DESIGNER EXAM wit jer LEBRON [facility]- 03/12/2009 Last Documented On 0 9:10AM ; [facility] Routine pelvic exam LEAD DESIGNER EXAM with EMHNAZ LEBRON [facility] 03/12/2009 Last Documented On 0 9:10AM ; [facility] Screening Malig. Neoplasm Rectum LEAD DESIGNER EXAM with Ida LEBRON [facility] 03/12/2009 Last Documented On 0 9:10AM ; [facility] Instructions Includes: Instructions for all patient encounters Instructions to patient Instructions for patient : B reast Self Exam discussed Last Documented On 8 3:09PM ; [facility] Colonoscopy Handout given to patient Last Documented On 8 3:10PM ; [facility] Instructions for patient : B reast Self Exam discussed Last Documented On 6 1:58PM ; [facility] Colonoscopy Handout given to patient Last Documented On 6 1:59PM ; [facility] Instructions for patient : B reast Self Exam discussed Last Documented On 5 2:43PM ; [facility] Instructions for patient : B reast Self Exam discussed Last Documented On 3 3:16PM ; [facility] Colonoscopy Handout given to patient Last Documented On 3 3:19PM ; [facility] Instructions for patient : B reast Self Exam discussed Last Documented On 2 9:13AM ; [facility] Colonoscopy Handout given to patient Last Documented On 2 9:14AM ; [facility] Instructions for patient : B reast Self Exam discussed Last Documented On 1 1:55PM ; [facility] Safe sex counseling Last Documented On 1 2:11PM ; [facility] Instructions for patient : B reast Self Exam discussed Last Documented On 0 8:55AM ; [facility] Education and Decision Aids were provided during visit for: Patient Education: Daily félix cium and vitamin D Last Documented On 8 3:09PM ; [facility] Patient Education: weight be aring exercise Last Documented On 8 3:09PM ; [facility] Patient Education: Daily félix cium and vitamin D Last Documented On 6 1:58PM ; [facility] Patient Education: weight be aring exercise Last Documented On 6 1:58PM ; [facility] Patient Education: Daily félix cium and vitamin D Last Documented On 5 2:43PM ; [facility] Patient Education: weight be aring exercise Last Documented On 5 2:43PM ; [facility] Patient Education: Daily félix cium and vitamin D Last Documented On 3 3:16PM ; [facility] Patient Education: weight be aring exercise Last Documented On 3 3:16PM ; [facility] Patient Education: Daily félix cium and vitamin D Last Documented On 2 9:13AM ; [facility] Patient Education: weight be aring exercise Last Documented On 2 9:13AM ; [facility] Patient Education: Daily félix cium and vitamin D Last Documented On 1 1:55PM ; [facility] Patient Education: weight be aring exercise Last Documented On 1 1:55PM ; [facility] Patient Education: Daily fléix cium and vitamin D Last Documented On 0 8:55AM ; [facility] Patient Education: weight be aring exercise Last Documented On 0 8:55AM ; [facility] Medical Equipment - Implanted Devices Includes: Current and historical Devices No Medical Equipment Recorded Medications Includes: Current and historical Medications Current Medications (continue as prescribed) Fosamax 70MG Oral Tablet 08/07/2017 Provider: KARYN MARTE Diagnosis: Age-related oste oporosis w/o current pathological fracture as directed one po q week on empty stomach! Last Documented On 8 10:47AM By MEHNAZ MARTE ; [facility] Lisinopril 10 MG OR TABS 04/17/2011 Provider: Diagnosis: Last Documented On 04/17/2011 9:19AM By MARY ALEXANDER ; [facility] Past Medications on file Fosamax 70 MG Tablet 12/06/2015 - 08/07/2017 Provider: MEHNAZ MARTE Diagnosis: Age-related oste oporosis w/o current pathological fracture as directed one po q week on empty stomach! Last Documented On 8 10:36AM By MEHNAZ MARTE ; [facility] Fosamax 70 MG Tablet 12/30/2014 - 12/06/2015 Provider: MEHNAZ MARTE Diagnosis: Age-related oste oporosis w/o current pathological fracture as directed one po q week on empty stomach! Last Documented On 6 2:16PM By MENHAZ MARTE ; [facility] Fosamax 70 MG OR TABS 11/21/2012 - 12/30/2014 Provider : MEHNAZ MARTE Diagnosis: OSTEOPOROSIS NOS one po q week on empty stomach! Last Documented On 5 8:41AM By MEHNAZ MARTE ; [facility] [id number]/4.5mg 160/4.5mg OR INHA 10/24/2012 - 11/13 Provider: Diagnosis: Last Documented On 12/06/2015 2:05PM By MARY ALEXANDER ; [facility] MetroGel-Vaginal 0.75% VA GEL 04/20/2011 - 10/24/2012 Provider: MEHNAZ MARTE Diagnosis: Insert 1 applicator vaginally q hs x 5 nocs. Last Documented On 10/24/2012 3:25PM By MARY ALEXANDER ; [facility] Estrace 0.1 MG/GM VA CREA 04/17/2011 - 10/24/2012 Prov ider: MEHNAZ MARTE Diagnosis: Insert 1/2 applicator vagina lly 3-4 nocs/week - 3 weeks on and 1 week off. Last Documented On 10/24/2012 3:25PM By MARY ALEXANDER ; [facility] Medications Administered Includes: Administered Medications in patient's chart No Administered Medications Recorded Results Includes: Results from 02/18/2023 through 02/19/2024 No Results Recorded For Specified Dates History of Present Illness History of Present Illness not supported for this document type No History of Present Illness Recorded Social History Description Last Updated Alcohol use occ 09/17/2017 Last Documented On 8 3:20PM ; [facility] In monogamous relationship 09/17/2017 Last Documented On 8 3:20PM ; [facility] Non-smoker 09/17/2017 Last Documented On 8 3:20PM ; [facility] Not using drugs 09/17/2017 Last Documented On 8 3:20PM ; [facility] Sexually active with 1 partners in the l ast year 09/17/2017 Last Documented On 8 3:20PM ; [facility] Social history unchanged 09/17/2017 Last Documented On 8 3:20PM ; [facility] Smoking status : Former smoker 8 Last Documented On 8 3:20PM ; [facility] Procedures and Surgical History Surgical History Last Updated Surgical / procedural history Rt ovary r emoved 1994 ~c/sx2 12/06/2015 Last Documented On 6 2:16PM ; [facility] History of tubal ligation 03/12/2009 Last Documented On 0 9:10AM ; [facility] Medical History Includes: Medical History in patient's chart Description Last Updated section 09/17/2017 Last Documented On 8 3:20PM ; [facility] No recent change in medical history 07/2017 Last Documented On 8 3:20PM ; [facility] Sexually active 09/17/2017 Last Documented On 8 3:20PM ; [facility] History of a DXA of the late ral lumbar spine was performed 12/22/2014 osteoprosis 09/17/2017 Last Documented On 8 3:20PM ; [facility] History of complete colonoscopy [address] Dr johnson repeat in 10 years 09/17/2017 Last Documented On 8 3:20PM ; [facility] History of Pap smear done 12/06/201507/2017 Last Documented On 8 3:20PM ; [facility] History of screening mammogram was perfo rmed 03/27/2016 09/17/2017 Last Documented On 8 3:20PM ; [facility] Result: normal 09/17/2017 Last Documented On 8 3:20PM ; [facility] Result: normal 09/17/2017 Last Documented On 8 3:20PM ; [facility] History of asthma 10/24/2012 Last Documented On 3 3:38PM ; [facility] History of benign essential hypertension 04/17/2011 Last Documented On 2 9:38AM ; [facility] History of menopause 03/12/2009 Last Documented On 0 9:10AM ; [facility] 2 03/12/2009 Last Documented On 0 9:10AM ; [facility] LMP: 200603/12/2009 Last Documented On 0 9:10AM ; [facility] Para 2 03/12/2009 Last Documented On 0 9:10AM ; [facility] Family History Includes: Family History in patient's chart Description Last Updated Family history unchanged 09/17/2017 Last Documented On 8 3:20PM ; [facility] Maternal history of hypertension parents 09/17/2017 Last Documented On 8 3:20PM ; [facility] Paternal grandmother's histo ry of malignant neoplasm of large intestine paternal grandma 09/17/2017 Last Documented On 8 3:20PM ; [facility] Family history of hypertension parents 0 03/28/2010 Last Documented On 1 2:12PM ; [facility] Family history of malignant neoplasm of the large intestine paternal grandma 03/12/2009 Last Documented On 0 9:10AM ; [facility] Review of Systems Review of Systems not supported for this document type No Review of Systems Recorded Mental Status No Mental Status Recorded Functional Status No Functional Status Recorded Physical Exam Physical Exam not supported for this document type No Physical Exam Recorded Allergies Includes: Active, inactive, and resolved Allergies No Known Allergies Insurance Includes: Active Insurance Policies Plan Name Member ID Group # Subscriber Relationship Effect akanksha Dates 1 - [facility] [id number] CINDY Burrell Clinical Notes Includes: Signed Clinical Notes starting from 03/03/2022 No Clinical Notes Recorded
--- OUTSIDE RECORDS SUMMARY | 2024-02-19 21:35 | XMS_ITS ---
Care Plan - [facility] Created on: February 19, 2024 BERLINCHIPCINDY LUGO Tal : [id number] Sex: Female Author Organization [facility] Address [address] [place] [address] Phone Care Team Providers Care Product Development Scientist Name Role Phone LOWELL LIMA, OLIVE Prieto Primary Care Provider [phone] HYUN LIMA, DENY Greenberg Unavailable [phone]
--- OUTSIDE RECORDS SUMMARY | 2024-02-19 21:36 | XMS_ITS | Encounter Summary ---
Author Organization [facility] Care Team Providers Care Invoicing Machine Operator Name Role Phone Jer Coelho DO Primary Care Provider [phone] Encounter Details Date Type Department Care Team [...] Coronavirus/COVID-19? 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
--- OUTSIDE RECORDS SUMMARY | 2024-02-19 21:36 | XMS_ITS | Encounter Summary ---
Author Organization [facility] Address [address] [place] [address] Phone Care Team Providers Care Clinical Staff Pharmacist Name Role Phone Jer Coelho DO Primary Care Provider +1- [phone] Samantha Harden APRN, INFORMATICS MANAGER Unavailable Reason for Visit * Auth/Cert (Routine) Specialty Diagnoses / Procedures Referred By Contac t Referred To Contact Diagnoses DYSPHAGIA, HX COLON POLYPS Procedures EGD COLONOSCOPY Referral ID Status Reason Start Date Expiration Date Visits Re quested Visits Authorized [id number] 1 1 Encounter Details Date Type Department Care Team (Late st Contact Info) Description 08/31/2023 8:00 AM CDT - 08/31/2023 9:00 AM CDT Surgery [facility] Gi Lab Periop [address] [place] [id number] John Thrasher MD 2 [facility], [address] [place] [address] EGD-DANIEL TEST, ESOPHAGITIS, GASTRITIS Surgery Details Date/Time Status Location OR Service Patient Class Case Class Case Type Trauma Case? 08/31/2023 8:00 AM Posted [facility] GI LAB GI 02 Gastroenterology [facility] Ambulatory Surgery Electiv e/Sched uled Panel [...] WORK, UNLESS INSTRUCTED OTHERWISE. Call doctor's office ([phone]) or go to Emergency room for: Difficulty Breathing, Headache Or Visual Disturbances Persistent Dizziness Or Light-Headedness Persistent Nausea and Vomiting Temperature greater then 100.0 Significant abdominal pain, chest pain, or bleeding. Here at [facility] we strive to provide excellent care [...] envelope is provided. Thank you for choosing [facility]. documented in this encounter Medications at Time [...] videos and all your education online visit, [email or web address] or scan this QR code with your [...] get enough exercise. You smoke. You take mztz-mdj-hotjzjg pain medicines. You have a family history [...] Follow these instructions at home: Medicines Take fgxg-xun-xcxgdeu and prescription medicines only as told by your provider. If told, take a fiber supplement or probiotic. Managing constipation Your condition may cause constipation. To prevent or treat constipation, you may need to: Drink enough fluid to keep your pee (urine) pale yellow. Take rgfz-zqw-bjfqmmc or prescription medicines. Eat foods that are [...] 2004-10-26 Document Updated: 2022-10-26 Document Reviewed: 2022-10-26 [employer] Patient Education ? 2023 [email or web address]. * PatientPass Patient Instructions - Mimi Levi RN - 08/31/2023 8:16 AM CDT Images from the original note were not included. Patient Education Table of Contents Esophagitis To view videos and all your education online visit, [email or web address] or scan this QR code with your [...] Follow these instructions at home: Medicines Take coej-ste-qkhrquy and prescription medicines only as told by [...] vinegar, hot sauces, and barbecue sauce. ? Stanley fruit juices and citrus fruits, such as oranges, jonah, and limes. ? Tomato-based foods, such as red sauce, chili, salsa, and pizza with red sauce. ? Fried and fatty foods, such as donuts, luxembourgish fries, potato chips, and high- fat dressings. [...] 2005-03-08 Document Updated: 2020-08-09 Document Reviewed: 2020-08-09 [employer] Patient Education ? 2023 [employer] * Plan of Care - Mimi [...] your procedure. You must have an adult emergency detail driver (18 yrs or older) arranged in [...] list of current medications, dosages and any dkqm-djy-kifoobl medication (such as herbs, oils, supplements) or [...] or questions Sunday - Sunday 8am-4pm at [phone] You will get a call from the Endoscopy Dept ([phone]) a week before your procedure to give [...] or nasal spray. Thank you for selecting [facility] ([facility]) or your procedure. We know you have a choice ofr your healthcare and we are pleased to prvide you with this service. Our [place] [facility] is to: Serve with the Greatest Care and Love . We are not employees of [facility] we are [employer] driven to provide care based on our [place], Vision and Values. Please do not hesitate to let us know if you have any questions or concerns. May God Bless you and we look forward to serving you. Your Perioperative Team. * Interdisciplinary - Deja Burger RN - 08/14/2023 3:33 PM CDT [facility] GI TEACHING Patient Name: Roxanna Cabral : 1960 CSN#: [id number] Person Educated Patient Ready to Learn Yes [...] be allowed to accompany you to the [facility]. No children under the age of 16 will be allowed in the [facility] unless they are the patient. If the [...] Verbalizes Understanding Patient assessed for foreign language teacher during the preop interview and appropriate interventions [...] Negative Negative 09/01/2023 10:11 AM CDT [facility] LAB Culture STOMACH STRUCTURE / Unknown Non-Phlebotomy Collection / Unknown 08/31/2023 8:06 AM CDT 08/31/2023 9:09 AM CDT us John Thrasher MD MICROBIOLOGY - GENERAL ORDERABLE S Final Result [facility] LAB #[address] [place] [address] * GI LAB IMAGING - EGD (08/31/2023 7:05 AM CDT) us John Thrasher MD IMG DIAGNOSTIC ORDERABLES Final Result * GI IMAGING - COLONOSCOPY (08/31/2023 7:05 AM CDT) John Thrasher MD [facility] DIAGNOSTIC ORDERABLES Final Result documented in this [...] RN)0756 (Paused - Provider: Sarah Freeman APRN, ANIMAL MAINTENANCE SUPERVISOR - Comment: Switch to gravity)0757 (Restarted - Provider: Sarah Freeman APRN, ANIMAL MAINTENANCE SUPERVISOR)0823 (Anesthesia Volume Adjustment - Provider: Sarah Freeman APRN, ANIMAL MAINTENANCE SUPERVISOR)0847 (Stopped - Provider: Mimi Levi, YON) PRN Medication Order 08/29/2023 08/30/2023 08/31/2023 ondansetron (ZOFRAN) injection 4 mg 4 mg, Intravenous, ONCE PRN, 1 dose, Starting on Sun08/31/23 at 0705, Until Sun08/31/23 at 1121, Nausea - 1st line, PRE-OP (SURGERY) documented in this encounter Care Teams Clinical Staff Pharmacist Relationship Specialty Start Date End Date Jer Coelho DO [address] [place] [address] PCP - General Family Medicine 03/16/15 Samantha Harden APRN, INFORMATICS MANAGER [address] [place] [address] Nurse Practitioner Advanced Practice Nurse 06/12/23 documented as of this encounter
--- OUTSIDE RECORDS SUMMARY | 2024-02-19 21:36 | XMS_ITS | Encounter Summary ---
Author Organization [facility] Address [address] [place] [address] Phone Care Team Providers Care [place] Operator Name Role Phone Jer Coelho DO Primary Care Provider +1- [phone] Samantha Harden APRN, HULL INSPECTOR Unavailable Encounter Details Date Type Department Care Team (Late st Contact Info) Description 07/11/2023 Telephone [facility] - Gastroenterology - [place] [address] [place] [address] John Thrasher MD 2 [facility] [address] [place] [address] Social History Tobacco Use Types [...] on filedocumented in this encounter Care Teams [place] Operator Relationship Specialty Start Date End Date Jer Coelho DO [address] [place] [address] PCP - General Family Medicine 03/16/15 Samantha Harden APRN, HULL INSPECTOR [address] [place] [address] Nurse Practitioner Advanced Practice Nurse 06/12/23 documented as of this encounter
--- OUTSIDE RECORDS SUMMARY | 2024-02-19 21:36 | XMS_ITS | Encounter Summary ---
Author Organization [facility] Address [address] [place] [address] Phone Care Team Providers Care Blast Furnace Tender Name Role Phone Jer Coelho DO Primary Care Provider +1- [phone] Samantha Harden APRN, CABLE PULLER Unavailable Reason for Visit * Auth/Cert (Routine) Specialty Diagnoses / Procedures Referred By Contac t Referred To Contact Diagnoses DYSPHAGIA, HX COLON POLYPS Procedures EGD COLONOSCOPY Referral ID Status Reason Start Date Expiration Date Visits Re quested Visits Authorized [id number] 1 1 Encounter Details Date Type Department Care Team (Late st Contact Info) Description 08/31/2023 7:10 AM CDT Ancillary [facility] Main 1 [place] [id number] John Thrasher MD 2 [facility] [address] [place] [address] Provider, Anesthesiologist Social History Tobacco Use Types [...] on filedocumented in this encounter Care Teams Blast Furnace Tender Relationship Specialty Start Date End Date Jer Coelho DO [address] [place] [address] PCP - General Family Medicine 03/16/15 Samantha Harden APRN, CABLE PULLER [address] [place] [address] Nurse Practitioner Advanced Practice Nurse 06/12/23 documented as of this encounter
--- OUTSIDE RECORDS SUMMARY | 2024-02-19 21:36 | XMS_ITS | Encounter Summary ---
Author Organization [facility] Care Team Providers Care Cook Fish Eggs Name Role Phone Jer Coelho DO Primary Care Provider +1- [phone] Samantha Harden APRN, ASSESSOR Unavailable Encounter Details Date Type Department Care [...] on filedocumented in this encounter Care Teams Cook Fish Eggs Relationship Specialty Start Date End Date Jer Coelho DO [address] [place] [address] PCP - General Family Medicine 03/16/15 Samantha Harden APRN, ASSESSOR [address] [facility] [place] [address] Nurse Practitioner Advanced Practice Nurse 06/12/23 documented as of this encounter
--- OUTSIDE RECORDS SUMMARY | 2024-02-19 21:36 | XMS_ITS | Encounter Summary ---
Author Organization [facility] Address [address] [place] [address] Phone Care Team Providers Care Record Tabulating Clerk Name Role Phone Jer Coelho DO Primary Care Provider +1- [phone] Samantha Harden APRN, BOX TRUCK DRIVER Unavailable Reason for Referral * Radiology Services (Routine) - Closed Specialty Diagnoses / Procedures Referred By Contac t Referred To Contact Radiology Diagnoses Age-related osteoporosis without current pathological fracture Procedures CHARI BONE DENSITOMETRY AXIAL SKELETON Jer Coelho DO [address] [place] [address] Phone: tel: fax: Referral ID Status Reason Start Date Expiration Date Visits Re quested Visits Authorized [id number] Closed 06/19/2023 1 1 * Radiology Services (Routine) - Closed Specialty Diagnoses / Procedures Referred By Contac t Referred To Contact Radiology Diagnoses Visit for screening mammogram Procedures CHARI SCREENING BILATERAL DIGITAL W CAD W CURT Jer Coelho DO [address] [place] [address] Phone: tel: fax: Referral ID Status Reason Start Date Expiration Date Visits Re quested Visits Authorized [id number] Closed 06/19/2023 1 1 Encounter Details Date Type Department Care Team (Late st Contact Info) Description 06/19/2023 Transcribe Orders [facility] Central Scheduling 1 [facility] [place] [address] Jer Coelho DO [address] [place] [address] Visit for screening mammogram (Primary Dx); Age-related [...] to exams dated: ??03/27/2016, 05/25/2014, and 11/04/2012 [facility]. ?? BREAST TISSUE:The tissue of both [...] Dre Sam M.D. ? ll/penrad:10/01/2023 14:28:52 ?? Circuit Tester(s): Janna ?? RT Garfield(R)(M), [facility] letter sent: Normal Exam ?? Reading location: [facility] BI-RADS: 2 Benign Procedure Note [...] to exams dated: 03/27/2016, 05/25/2014, and 11/04/2012 [facility]. BREAST TISSUE:The tissue of both breasts [...] exam. Electronically signed by: Dre stewart/radha:10/01/2023 14:28:52 Circuit Tester(s): Janna Merrill RT(R)(M), [facility] letter sent: Normal Exam Reading location: [facility] [...] Narrative 09/29/2023 10:19 AM CDT EXAM DESCRIPTION: [facility] BONE DENSITOMETRY AXIAL SKELETON REASON FOR STUDY: 63 y/o ?? year old ??F ??with given history of: ?? Age-related osteoporosis without current pathological fracture ? Web Publisher/Model: [employer] (S/N [id number]) CLINICAL INFORMATION: Current height: ??62 ??inches ? [...] AM T: ??09/29/2023 10:17 AM Report ID: [id number] Reading Location: ??[id number] Procedure Note Eliot Currie MD - 09/29/2023 EXAM DESCRIPTION: [facility] BONE DENSITOMETRY AXIAL SKELETON REASON FOR STUDY: 63 y/o year old F with given history of: Age-related osteoporosis without current pathological fracture Web Publisher/Model: [employer] (S/N [id number]) CLINICAL INFORMATION: Current height: 62 inches Maximum [...] Eliot Currie M.D. MF: ARVIND Report ID: [id number] Reading Location: [place] [address] IMPRESSION: Osteoporosis. REFERENCE: Bone mineral density: T-Score: [...] mammogram documented in this encounter Care Teams Record Tabulating Clerk Relationship Specialty Start Date End Date Jer Coelho DO [address] [place] [address] PCP - General Family Medicine 03/16/15 Samantha Harden APRN, BOX TRUCK DRIVER [address] [place] [address] Nurse Practitioner Advanced Practice Nurse 06/12/23 documented as of this encounter
--- OUTSIDE RECORDS SUMMARY | 2024-02-19 21:36 | XMS_ITS | Encounter Summary ---
Author Organization [facility] Address [address] [place] [address] Phone Care Team Providers Care Director Nurses' Registry Name Role Phone Jer Coelho DO Primary Care Provider +1- [phone] Samantha Harden APRN, SUPERVISOR CLOTH WINDING Unavailable Reason for Referral * Radiology Services (Routine) - Closed Specialty Diagnoses / Procedures Referred By Gumaro tran Referred To Contact Radiology Diagnoses Visit for screening mammogram Procedures CHARI SCREENING BILATERAL DIGITAL W CAD W Jer Brooke DO [address] [place], [place] [address] Phone: tel: fax: Referral ID Status Reason Start Date Expiration Date Visits Re quested Visits Authorized [id number] Closed 06/19/2023 1 1 Reason for Visit * Radiology Services (Routine) - Closed Specialty Diagnoses / Procedures Referred By Gumaro tran Referred To Contact Radiology Diagnoses Visit for screening mammogram Procedures CHARI SCREENING BILATERAL DIGITAL W CAD W Jer Brooke DO [address] [place] [address] Phone: tel: fax: Referral ID Status Reason Start Date Expiration Date Visits Re quested Visits Authorized [id number] Closed 06/19/2023 1 1 Encounter Details Date Type Department Care Team (Late st Contact Info) Description 09/28/2023 9:36 AM CDT - 09/28/2023 11:59 PM CDT Hospital Encounter [facility] Mammography [address] [place] [address] Meliton Jer Tevin, [address] [place] [address] Discharge Disposition: Discharged to home or Selfcare [...] copy. Current study was also evaluated with eÓticaD version 7.2. 2D digital mammographic views, as well as 3D digital tomosynthesis were performed in the CC and MLO projections. ?? CLINICAL: Routine screening. Patient has no complaints. No personal history of cancer. No family history of breast cancer. ?? COMPARISONS: Comparison is made to exams dated: ??03/27/2016, 05/25/2014, and [facility]. ?? BREAST TISSUE:The tissue of both breasts [...] Dre Sam M.D. ? ll/penrad:10/01/2023 14:28:52 ?? Production Generalist(s): Janna ?? RT Garfield(Dianna)(Tal), [facility] letter sent: Normal Exam ?? Reading location: [...] to exams dated: 03/27/2016, 05/25/2014, and 11/04/2012 [facility]. BREAST TISSUE:The tissue of both breasts is [...] exam. Electronically signed by: Dre stewart/radha:10/01/2023 14:28:52 Production Generalist(s): MADYSON Vitale)(M), [facility] letter sent: Normal Exam Reading location: [facility] BI-RADS: 2 Benign Jer Coelho DO IMG MAMMO ORDERABLES Final Result documented in this encounter Visit Diagnoses Diagnosis Visit for screening mammogram Other screening mammogram documented in this encounter Care Teams Director Nurses' Registry Relationship Specialty Start Date End Date Jer Coelho DO [address] [place] [address] PCP - General Family Medicine 03/16/15 Samantha Harden APRN, SUPERVISOR CLOTH WINDING [address] [place] [address] Nurse Practitioner Advanced Practice Nurse 06/12/23 documented as of this encounter
--- OUTSIDE RECORDS SUMMARY | 2024-02-19 21:36 | XMS_ITS | Encounter Summary ---
Author Organization [facility] Address [address] [facility] [place] [address] Phone Care Team Providers Care Php Wordpress Developer Name Role Phone Luxjayy Jer Anderson DO Primary Care Provider +1- [phone] Samantha Harden APRN, MOLD SANDER Unavailable Reason for Visit * Auth/Cert (Routine) Specialty Diagnoses / Procedures Referred By Contac t Referred To Contact Diagnoses DYSPHAGIA, HX COLON POLYPS Procedures EGD COLONOSCOPY Referral ID Status Reason Start Date Expiration Date Visits Re quested Visits Authorized [id number] 1 1 Encounter Details Date Type Department Care Team (Late st Contact Info) Description 08/31/2023 7:57 AM CDT [facility] [address] [place] [address] Sarah Freeman, ALENA, DIRECTOR OF STRATEGIC COMMUNICATIONS [address] [place] [address] Anesthesia Record Procedure Summary Procedure Name Responsible Anesthesiologist Anesthesia Start Time Anesthesia Stop Time EGD-DANIEL TEST, ESOPHAGITIS, GASTRITIS Sarah Freeman, ALENA, DIRECTOR OF STRATEGIC COMMUNICATIONS 08/31/23 0757 08/31/23 0825 Events Date Time [...] Procedure Summary Date: 08/31/23 Room / Location: [facility] GI LAB 02 / [facility] GI LAB MAIN Anesthesia Start: 756 Anesthesia [...] Date/Time: 08/31/23 08 Procedures: EGD COLONOSCOPY Location: [facility] GI LAB / [facility] GI LAB MAIN Surgeons: John Thrasher MD [...] mg documented in this encounter Care Teams Php Wordpress Developer Relationship Specialty Start Date End Date Jer Coelho DO [address] [place] [address] PCP - General Family Medicine 03/16/15 Samantha Harden APRN, MOLD SANDER [address] [place] [address] Nurse Practitioner Advanced Practice Nurse 06/12/23 documented as of this encounter
--- OUTSIDE RECORDS SUMMARY | 2024-02-19 21:36 | XMS_ITS | Clinical Summary ---
Author Organization [facility] Address [address] [place] [address] Phone Care Team Providers Care Lawn Care Professional Name Role Phone LOWELL LIMA, OLIVE Prieto Primary Care Provider [phone] HYUN LIMA, DENY Greenberg Unavailable [phone] Reason for Visit and Chief Complaint DEXASCAN Problems Includes: Problems addressed during this encounter and other active Problems All Visits Onset Date Resolved Date Provider Condition S tatus Osteoporosis 06/01/2014 MEHNAZ CORTES-BC Active Last Documented On 12/06/2015 2:03PM ; [facility] Note: DEXA - femoral neck only! Asthma 10/24/2012 MEHNAZ LEBRON NIKKI-BC Active Last Documented On 3 3:28PM ; [facility] Hypertension Systemic 10/24/2012 MEHNAZ LEBRON NP-BC Active Last Documented On 3 3:27PM ; [facility] Plan of Treatment No Plan of Treatment Recorded Assessments Includes: Assessments from this encounter No Assessments Recorded Medical Equipment - Implanted Devices Includes: Current Devices No Medical Equipment Recorded Medications Includes: Medications discussed during this encounter and other current Medications Current Medications (continue as prescribed) Fosamax 70MG Oral Tablet 08/07/2017 Provider: KARYN MARTE Diagnosis: Age-related oste oporosis w/o current pathological fracture as directed one po q week on empty stomach! Last Documented On 8 10:47AM By MEHNAZ MARTE ; [facility] Lisinopril 10 MG OR TABS 04/17/2011 Provider: Diagnosis: Last Documented On 04/17/2011 9:19AM By MARY ALEXANDER ; [facility] Medications Administered Includes: Administered Medications from this encounter No Administered Medications Recorded Results Includes: Results discussed during this encounter No Results Recorded For Specified Dates History of Present Illness Includes: History of Present Illness from this encounter No History of Present Illness Recorded Social History No Social History Recorded - Smoking Status Unknown Medical History Includes: Medical History addressed during this encounter No Medical History Recorded Family History Includes: Family History addressed during this encounter No Family History Recorded Review of Systems Includes: Review of Systems from this encounter No Review of Systems Recorded Mental Status Includes: Mental Status from this encounter No Mental Status Recorded Functional Status Includes: Functional Status from this encounter No Functional Status Recorded Physical Exam Includes: Physical Exam from this encounter No Physical Exam Recorded Allergies Includes: Active Allergies No Known Allergies Insurance Includes: Active Insurance Policies Plan Name Member ID Group # Subscriber Relationship Effect akanksha Dates - [facility] [id number] CINDY SIERRA Self Clinical Notes Includes: Clinical Notes from this encounter No Clinical Notes Recorded
--- OUTSIDE RECORDS SUMMARY | 2024-02-19 21:36 | XMS_ITS | Encounter Summary ---
Author Organization [facility] Address [address] [place] [address] Phone Care Team Providers Care Hot Strip Finisher Name Role Phone Jer Coelho DO Primary Care Provider +1- [phone] Samantha Harden APRN, ELECTRIC CELL TENDER Unavailable Reason for Visit * Auth/Cert (Routine) Specialty Diagnoses / Procedures Referred By Contac t Referred To Contact Diagnoses DYSPHAGIA, HX COLON POLYPS Procedures EGD COLONOSCOPY Referral ID Status Reason Start Date Expiration Date Visits Re quested Visits Authorized [id number] 1 1 Encounter Details Date Type Department Care Team (Late st Contact Info) Description 08/31/2023 7:15 AM CDT [facility] Main [address] [place] [address] John Thrasher MD 2 [facility] [address] [place] [address] Provider, Anesthesiologist Social History Tobacco Use Types [...] on filedocumented in this encounter Care Teams Hot Strip Finisher Relationship Specialty Start Date End Date Jer Coelho DO [address] [place] [address] PCP - General Family Medicine 03/16/15 Samantha Harden APRN, ELECTRIC CELL TENDER [address] [place] [address] Nurse Practitioner Advanced Practice Nurse 06/12/23 documented as of this encounter
--- OUTSIDE RECORDS SUMMARY | 2024-02-19 21:36 | XMS_ITS | Clinical Summary ---
Author Organization [facility] Address [address] [place] [address] Phone Care Team Providers Care Blackjack Supervisor Name Role Phone LOWELL LIMA, OLIVE Prieto Primary Care Provider [phone] HYUN LIMA, DENY Greenberg Unavailable [phone] Reason for Visit and Chief Complaint gynecologic annual exam - The Chief Complaint is: Annual Problems Includes: Problems addressed during this encounter and other active Problems All Visits Onset Date Resolved Date Provider Condition S tatus Osteoporosis 06/01/2014 MEHNAZ LEBRON WHNP-BC Active Last Documented On 12/06/2015 2:03PM ; [facility] Note: DEXA - femoral neck only! Asthma 10/24/2012 MEHNAZ LEBRON NP-BC Active Last Documented On 3 3:28PM ; [facility] Hypertension Systemic 10/24/2012 MEHNAZ LEBRON NP-BC Active Last Documented On 3 3:27PM ; [facility] Plan of Treatment - Follow-up visit 1 year or as needed - Last Documented On 09/17/2017 3:20PM ; [facility] - Clinical summary provided to patient - Last Documented On 09/17/2017 3:20PM ; [facility] Per new ASCCP guidelines, pap was deferred today. This was d/w pt. and pt. is agreeable to this plan. - Last Documented On 09/17/2017 3:20PM ; [facility] Instructions to patient Instructions for patient : B reast Self Exam discussed Last Documented On 8 3:09PM ; [facility] Colonoscopy Handout given to patient Last Documented On 8 3:10PM ; [facility] Education and Decision Aids were provided during visit for: Patient Education: Daily félix cium and vitamin D Last Documented On 8 3:09PM ; [facility] Patient Education: weight be aring exercise Last Documented On 8 3:09PM ; [facility] Assessments Includes: Assessments from this encounter Findings - NORMAL FEMALE EXAM - Last Documented On 09/17/2017 3:20PM ; [facility] - Screening Malig. Neoplasm Rectum - Last Documented On 09/17/2017 3:20PM ; [facility] Instructions Includes: Instructions from this encounter Instructions to patient Instructions for patient : B reast Self Exam discussed Last Documented On 8 3:09PM ; [facility] Colonoscopy Handout given to patient Last Documented On 8 3:10PM ; [facility] Education and Decision Aids were provided during visit for: Patient Education: Daily félix cium and vitamin D Last Documented On 8 3:09PM ; [facility] Patient Education: weight be aring exercise Last Documented On 8 3:09PM ; [facility] Medical Equipment - Implanted Devices Includes: Current Devices No Medical Equipment Recorded Medications Includes: Medications discussed during this encounter and other current Medications Current Medications (continue as prescribed) Fosamax 70MG Oral Tablet 08/07/2017 Provider: KARYN LOWERY Diagnosis: Age-related oste oporosis w/o current pathological fracture as directed one po q week on empty stomach! Last Documented On 8 10:47AM By MEHNAZ MARTE ; [facility] Lisinopril 10 MG OR TABS 04/17/2011 Provider: Diagnosis: Last Documented On 04/17/2011 9:19AM By MARY ALEXANDER ; [facility] Medications Administered Includes: Administered Medications from this encounter No Administered Medications Recorded Vital Signs Includes: Vital Signs from this encounter Vital Name 09/17/2017 03:08P Blood Pressure Sitting L 110/64 BP Cuff Size Regular Height (in) 63 Weight (lb) 110 Body Mass Index (kg/m2) 19.5 Body Surface Area (m2) 1.5 Last Documented: On 09/17/2017 3:10PM ; [facility] Results Includes: Results discussed during this encounter SUREPATH PAP AND HPV mRNA E6/E7 [employer] Ordered by MEHNAZ CORTES- on 11/13 Collected: 12/06/2015 Reported: 12/10/19 16 16:33 Last Documented On 6 9:25AM ; [facility] Reviewed by MEHNAZ PADILLA NP- on 12/13/2015; All test results are final unless otherwise noted. HPV mRNA E6/E7, SUREPATH VIAL Not Detected (NOT DETECTED) N (Normal) Last Documented On 6 9:25AM ; [facility] Note: This test was performed using the APTIMA HPV Assay ([employer]This assay detects E6/E7 viral messenger RNA (mRNA) from 14high-risk HPV types (16,18,31,33,35,39,45,51,52,56,58,59,66,68).The analytical performance characteristics ofthis assay, when used to test SurePath specimens,have been determined by [employer] SOURCE: Cervix, Endocervix N (Normal) Last Documented On 6 9:25AM ; [facility] CLINICAL INFORMATION: Routine exam N (Normal) Last Documented On 6 9:25AM ; [facility] LMP: 2006 N (Normal) Last Documented On 6 9:25AM ; [facility] PREV. PAP: 2012 N (Normal) Last Documented On 6 9:25AM ; [facility] PREV. BX: NONE N (Normal) Last Documented On 6 9:25AM ; [facility] STATEMENT OF ADEQUACY: Satisfactory for evaluation. Endocervical/transformation zone component present. N (Normal) Last Documented On 6 9:25AM ; [facility] INTERPRETATION/RESULT: Negative for intraepithelial lesion or malignancy. N (Normal) Last Documented On 6 9:25AM ; [facility] RADIO EQUIPMENT INSTALLER: BHARATH LEYVA(ASCP) CT screening location: [place] [address] [place] [address] N (Normal) Last Documented On 6 9:25AM ; [facility] History of Present Illness Includes: History of Present Illness from this encounter HPI CINDY SIERRA is a 57 year old female. - Medication list reviewed - PRIMARY CARE PROVIDER : Dr Coelho Social History Description Last Updated Alcohol use occ 09/17/2017 Last Documented On 8 3:20PM ; [facility] In monogamous relationship 09/17/2017 Last Documented On 8 3:20PM ; [facility] Non-smoker 09/17/2017 Last Documented On 8 3:20PM ; [facility] Not using drugs 09/17/2017 Last Documented On 8 3:20PM ; [facility] Sexually active with 1 partners in the l ast year 09/17/2017 Last Documented On 8 3:20PM ; [facility] Social history unchanged 09/17/2017 Last Documented On 8 3:20PM ; [facility] Smoking status : Former smoker 8 Last Documented On 8 3:20PM ; [facility] Procedures and Surgical History Includes: Procedures from this encounter Procedures Code Diagnosis Performing Provider Service L ocation Service Date low fat diet Last Documented On 8 3:10PM ; [facility] fecal occult blood test was negative 12976 Last Documented On 8 3:09PM ; [facility] Surgical History Last Updated Surgical / procedural history Rt ovary r emoved 1994 ~c/sx2 12/06/2015 Last Documented On 8 3:07PM ; [facility] History of tubal ligation 03/12/2009 Last Documented On 8 3:07PM ; [facility] Medical History Includes: Medical History addressed during this encounter Description Last Updated section 09/17/2017 Last Documented On 8 3:20PM ; [facility] No recent change in medical history 07/2017 Last Documented On 8 3:20PM ; [facility] Sexually active 09/17/2017 Last Documented On 8 3:20PM ; [facility] History of a DXA of the late ral lumbar spine was performed 12/22/2014 osteoprosis 09/17/2017 Last Documented On 8 3:20PM ; [facility] History of complete colonoscopy [address] Dr johnson repeat in 10 years 09/17/2017 Last Documented On 8 3:20PM ; [facility] History of Pap smear done 12/06/201507/2017 Last Documented On 8 3:20PM ; [facility] History of screening mammogram was perfo rmed 03/27/2016 09/17/2017 Last Documented On 8 3:20PM ; [facility] Result: normal 09/17/2017 Last Documented On 8 3:20PM ; [facility] Result: normal 09/17/2017 Last Documented On 8 3:20PM ; [facility] History of benign essential hypertension 04/17/2011 Last Documented On 8 3:07PM ; [facility] History of menopause 03/12/2009 Last Documented On 8 3:07PM ; [facility] 2 03/12/2009 Last Documented On 8 3:07PM ; [facility] LMP: 200603/12/2009 Last Documented On 8 3:07PM ; [facility] Para 2 03/12/2009 Last Documented On 8 3:07PM ; [facility] Family History Includes: Family History addressed during this encounter Description Last Updated Family history unchanged 09/17/2017 Last Documented On 8 3:20PM ; [facility] Maternal history of hypertension parents 09/17/2017 Last Documented On 8 3:20PM ; [facility] Paternal grandmother's histo ry of malignant neoplasm of large intestine paternal grandma 09/17/2017 Last Documented On 8 3:20PM ; [facility] Review of Systems Includes: Review of Systems from this encounter Gastrointestinal: No pelvic pain. Genitourinary: No postmenopausal bleeding. No vaginal discharge. Mental Status Includes: Mental Status from this encounter No Mental Status Recorded Functional Status Includes: Functional Status from this encounter No Functional Status Recorded Physical Exam Includes: Physical Exam from this encounter Allergies Includes: Active Allergies No Known Allergies Encounters Encounter Provider Location Date Check-In Time Check-Out Time Diagnosis ANNUAL INSTRUMENTATION SUPERVISOR EXAM MEHNAZ [facility]ES[facility] JEWEL FLAT SURFACER 09/18/19 18 3:04PM 3:22PM Screening Malig. Neoplasm Rectum,Normal Female Exam Insurance Includes: Active Insurance Policies Plan Name Member ID Group # Subscriber Relationship Effect akanksha Dates 1 - [facility] [id number] CINDY SIERRA Self Clinical Notes Includes: Clinical Notes from this encounter No Clinical Notes Recorded
--- OUTSIDE RECORDS SUMMARY | 2024-02-19 21:36 | XMS_ITS | Encounter Summary ---
Author Organization [facility] Address [address] [place] [address] Phone Care Team Providers Care Manager Pediatric Name Role Phone Jer Coelho DO Primary Care Provider [phone] Samantha Harden APRN, MANAGER FILM Unavailable Reason for Referral * Radiology Services (Routine) - Closed Specialty Diagnoses / Procedures Referred By Contac t Referred To Contact Radiology Diagnoses LLQ abdominal pain Procedures CT ABDOMEN PELVIS W/ CONTRAST Jer Coelho DO [address] [place] [address] Phone: tel: fax: Referral ID Status Reason Start Date Expiration Date Visits Re quested Visits Authorized [id number] Closed 08/31/2023 1 1 Encounter Details Date Type Department Care Team (Late st Contact Info) Description 08/31/2023 Transcribe Orders [facility] Central Scheduling [address] [place] [id number] Jer Coelho DO [address] [place] [address] LLQ abdominal pain (Primary Dx) [...] ??Grade 1 anterolisthesis of L4 on L5. ??Oejh-rx-yjwibbaq bilateral neuroforaminal stenosis at L4-L5. ??Moderate L4-L5 [...] PM T: ??10/03/2023 2:39 PM Report ID: [id number] Reading Location: ??[id number] Procedure Note Epifanio Mckinney MD - 10/03/2023 [...] Grade 1 anterolisthesis of L4 on L5. Runv-ug-zbnqtzlk bilateral neuroforaminal stenosis at L4-L5. Moderate L4-L5 disc bulge and uncovering of the disc with moderate central spinal canal stenosis. MRI may prove helpful for further evaluation if clinically desired. OTHER: No other abnormality. THIS IS AN ELECTRONICALLY VERIFIED FINAL REPORT 10/03/2023 2:39 PM - Electronically signed by Epifanio Mckinney M.D. BB: CARL Report ID: [id number] Reading Location: [id number] IMPRESSION: 1. Mild colonic diverticulosis without evidence [...] quadrant documented in this encounter Care Teams Manager Pediatric Relationship Specialty Start Date End Date Jer Coelho DO [address] [place] [address] PCP - General Family Medicine 03/16/15 Samantha Harden APRN, MANAGER FILM [address] [place] [address] Nurse Practitioner Advanced Practice Nurse 06/12/23 documented as of this encounter
--- OUTSIDE RECORDS SUMMARY | 2024-02-19 21:36 | XMS_ITS | Encounter Summary ---
Author Organization [facility] Address [address] [place] [address] Phone Care Team Providers Care Shell Press Operator Name Role Phone Jer Coelho DO Primary Care Provider [phone]- [phone] Samantha Harden APRN, CNP Unavailable Reason for Referral * Other (Routine) - Closed Specialty Diagnoses / Procedures Referred By Gumaro tran Referred To Contact Gastroenterology Diagnoses History of colon polyps Family history of colon cancer Left upper quadrant pain Procedures GASTRO PROCEDURE Samantha Harden APRN, JANE[address] [place] [address] Phone: tel: fax: Referral ID Status Reason Start Date Expiration Date Visits Re quested Visits Authorized [id number] Closed 06/12/2023 1 1 * Other (Routine) - Closed Specialty Diagnoses / Procedures Referred By Contkaushik t Referred To Contact Gastroenterology Diagnoses Dysphagia, unspecified type Heartburn Left upper quadrant pain Procedures GASTRO PROCEDURE Samantha Harden APRN, BUS CLEANER [address] [place] [address] Phone: tel: fax: Referral ID Status Reason Start Date Expiration Date Visits Re quested Visits Authorized [id number] Closed 06/12/2023 1 1 Reason for Visit * Reason Comments New Patient Abdominal Pain * Consult, Test & Initiate Treatment (Routine) - Closed Specialty Diagnoses / Procedures Referred By Contact Referred To Contact Gastroenterology Diagnoses Encounter for screening for malignant neoplasm of colon Procedures COLONOSCOPY Jer Coelho, [address] [place] [address] Phone: tel: fax: [facility] Gastroenterology [facility] [address] [place] [address] Phone: tel: fax: Referral ID Status Reason Start Date Expiration Date Visits Re quested Visits Authorized [id number] Closed 1 1 Encounter Details Date Type Department Care Team (Late st Contact Info) Description 06/12/2023 10:00 AM CDT Office Visit [facility] [address] [place] [address] Samantha Harden APRN, BUS CLEANER [address] [place], [place] [id number] Dysphagia, unspecified type (Primary Dx); Heartburn; History [...] encounter Patient Instructions * Patient Instructions* Samantha Harden APRN, CNP - 06/12/2023 10:00 AM CDT Can use cjqn-isb-amsbrcb Pepcid as needed for any heartburn. documented in this encounter Progress Notes * Samantha Harden APRN, CNP - 06/12/2023 10:00 AM CDT [facility] [address] [facility] [address] Dept: [phone] Dept Loc: [phone] Loc Patient: Roxanna Cabral : 1960 Sex: [...] the reasons discussed above. Advised to use zvzu-aep-jizwwwi Pepcid as needed for breakthrough heartburn. Monitor [...] occasional heartburn for which she will take ybum-hnd-eieduik Tums. She states some issues with dysphagia [...] APRN, CNP This note was transcribed using [employer] speech recognition software. As a result, there [...] quadrant documented in this encounter Care Teams Shell Press Operator Relationship Specialty Start Date End Date Jer Coelho DO [address] [place] [address] PCP - General Family Medicine 03/16/15 Samantha Harden APRN, BUS CLEANER [address] [place] [address] Nurse Practitioner Advanced Practice Nurse 06/12/23 documented as of this encounter
--- OUTSIDE RECORDS SUMMARY | 2024-02-19 21:36 | XMS_ITS | Clinical Summary ---
Author Organization [facility] Address [address] [address] Phone Care Team Providers Care Community Development Technician Name Role Phone Jer Coelho DO Primary Care Provider [phone]- [phone] Samantha Harden APRN, CYLINDER TESTER Unavailable Allergies No known active allergies Medications [...] Procedure Name Priority Date/Time Associated Diagnosis Comments [facility] SCREENING BILATERAL DIGITAL W CAD W CURT Routine 09/28/2023 10:34 AM CDT Visit for screening mammogram [facility] BONE DENSITOMETRY AXIAL SKELETON Routine 09/28/2023 10:12 AM CDT Age-related osteoporosis without current pathological fracture from Last 3 Months or Most Recently Relevant to Health Maintenance Results * [facility] SCREENING BILATERAL DIGITAL W CAD W CURT [...] to exams dated: ??03/27/2016, 05/25/2014, and 11/04/2012 [facility]. ?? BREAST TISSUE:The tissue of both [...] Dre Sam M.D. ? ll/penrad:10/01/2023 14:28:52 ?? Guest Service Host(s): Janna ?? RT Garfield(R)(M), [facility] letter sent: Normal Exam ?? Reading location: [facility] BI-RADS: 2 Benign Procedure Note [...] to exams dated: 03/27/2016, 05/25/2014, and 11/04/2012 [facility]. BREAST TISSUE:The tissue of both breasts [...] exam. Electronically signed by: Dre stewart/radha:10/01/2023 14:28:52 Guest Service Host(s): Janna Merrill RT(R)(M), [facility] letter sent: Normal Exam Reading location: [...] Narrative 09/29/2023 10:19 AM CDT EXAM DESCRIPTION: [facility] BONE DENSITOMETRY AXIAL SKELETON REASON FOR STUDY: 63 y/o ?? year old ??F ??with given history of: ?? Age-related osteoporosis without current pathological fracture ? Repair Specialist/Model: [employer]PEK (S/N [id number]) CLINICAL INFORMATION: Current height: ??62 ??inches ? [...] AM T: ??09/29/2023 10:17 AM Report ID: [id number] Reading Location: ??[id number] Procedure Note Eliot Currei MD - 09/29/2023 EXAM DESCRIPTION: [facility] BONE DENSITOMETRY AXIAL SKELETON REASON FOR STUDY: 63 y/o year old F with given history of: Age-related osteoporosis without current pathological fracture Repair Specialist/Model: UPEK (S/N [id number]) CLINICAL INFORMATION: Current height: 62 inches Maximum [...] Eliot Currie M.D. MF: [id number] Report ID: [id number] Reading Location: [place] [address] IMPRESSION: Osteoporosis. REFERENCE: Bone mineral density: T-Score: [...] Maintenance Insurance MEDICAID [place] MEDICARE Care Teams Community Development Technician Relationship Specialty Start Date End Date Jer Coelho DO [address] [place] [address] PCP - General Family Medicine 03/16/15 Samantha Harden APRN, CYLINDER TESTER [address] [place] [address] Nurse Practitioner Advanced Practice Nurse 06/12/23
--- OUTSIDE RECORDS SUMMARY | 2024-02-19 21:36 | XMS_ITS | Clinical Summary ---
Author Organization [facility] Address [address] [place] [address] Phone Care Team Providers Care Charter Boat Operator Name Role Phone LOWELL LIMA, OLIVE Prieto Primary Care Provider [phone] HYUN LIMA, DENY Greenberg Unavailable [phone] Reason for Visit and Chief Complaint DEXASCAN Problems Includes: Problems addressed during this encounter and other active Problems All Visits Onset Date Resolved Date Provider Condition S tatus Osteoporosis 06/01/2014 MEHNAZ CORTES-BC Active Last Documented On 12/06/2015 2:03PM ; [facility] Note: DEXA - femoral neck only! Asthma 10/24/2012 MEHNAZ LEBRON NIKKI-BC Active Last Documented On 3 3:28PM ; [facility] Hypertension Systemic 10/24/2012 MEHNAZ LEBRON NP-BC Active Last Documented On 3 3:27PM ; [facility] Plan of Treatment No Plan of Treatment [...] On 8 10:47AM By MEHNAZ MARTE ; [facility] Lisinopril 10 MG OR TABS 04/17/2011 Provider: Diagnosis: Last Documented On 04/17/2011 9:19AM By MARY ALEXANDER ; [facility] Medications Administered Includes: Administered [...] Location Date Check-In Time Check-Out Time Diagnosis FELIPA LEBRON [facility] HAM CLERK 12/22/2014 9:04AM 9:25AM Insurance Includes: Active Insurance Policies Plan Name Member ID Group # Subscriber Relationship Effect akanksha Dates - [facility] [id number] CINDY SIERRA Self Clinical Notes Includes: Clinical Notes from this encounter No Clinical Notes Recorded
--- OUTSIDE RECORDS SUMMARY | 2024-02-19 21:36 | XMS_ITS | Encounter Summary ---
Author Organization [email or web address] Care Team Providers Care Tumbling Barrel Painter Name Role Phone Jer Coelho DO Primary Care Provider [phone]- [phone] Samantha Harden APRN, EXPOSURE MACHINE OPERATOR Unavailable Encounter Details Date Type Department Care [...] on filedocumented in this encounter Care Teams Tumbling Barrel Painter Relationship Specialty Start Date End Date Jer Coelho DO [address] [place] [address] PCP - General Family Medicine 03/16/15 Samantha Harden APRN, EXPOSURE MACHINE OPERATOR [address] [facility] [place] [address] Nurse Practitioner Advanced Practice Nurse 06/12/23 documented as of this encounter
--- OUTSIDE RECORDS SUMMARY | 2024-02-19 21:36 | XMS_ITS | Encounter Summary ---
Author Organization [facility] Address [address] [place] [address] Phone Care Team Providers Care Crusher Feeder Name Role Phone Jer Coelho DO Primary Care Provider +1- [phone] Samantha Harden APRN, SECTION WEAVER Unavailable Reason for Referral * Radiology Services (Routine) - Closed Specialty Diagnoses / Procedures Referred By Contac t Referred To Contact Radiology Diagnoses Age-related osteoporosis without current pathological fracture Procedures CHARI BONE DENSITOMETRY AXIAL SKELETON Jer Coelho DO [address] [place] [address] Phone: tel: fax: Referral ID Status Reason Start Date Expiration Date Visits Re quested Visits Authorized [id number] Closed 06/19/2023 1 1 Reason for Visit * Radiology Services (Routine) - Closed Specialty Diagnoses / Procedures Referred By Contac t Referred To Contact Radiology Diagnoses Age-related osteoporosis without current pathological fracture Procedures CHARI BONE DENSITOMETRY AXIAL SKELETON Jer Coelho DO [address] [place] [address] Phone: tel: fax: Referral ID Status Reason Start Date Expiration Date Visits Re quested Visits Authorized [id number] Closed 06/19/2023 1 1 Encounter Details Date Type Department Care Team (Late st Contact Info) Description 09/28/2023 9:36 AM CDT - 09/28/2023 11:59 PM CDT Hospital Encounter [facility] Mammography [address] [place] [address] Meliton Jerlarry OliverJustin, [address] [place] [address] Discharge Disposition: Discharged to home or Selfcare [...] fracture documented in this encounter Results * [facility] BONE DENSITOMETRY AXIAL SKELETON (09/28/2023 10:12 AM [...] Narrative 09/29/2023 10:19 AM CDT EXAM DESCRIPTION: [facility] BONE DENSITOMETRY AXIAL SKELETON REASON FOR STUDY: 63 y/o ?? year old ??F ??with given history of: ?? Age-related osteoporosis without current pathological fracture ? Commercial Accountant/Model: Adhysteria (S/N [id number]) CLINICAL INFORMATION: Current height: ??62 ??inches ? [...] AM T: ??09/29/2023 10:17 AM Report ID: [id number] Reading Location: ??[id number] Procedure Note Eliot Currie MD - 09/29/2023 EXAM DESCRIPTION: CHARI BONE DENSITOMETRY AXIAL SKELETON REASON FOR STUDY: 63 y/o year old F with given history of: Age-related osteoporosis without current pathological fracture Commercial Accountant/Model: Adhysteria (S/N [id number]) CLINICAL INFORMATION: Current height: 62 inches Maximum [...] signed by Eliot SAMUELS: ARVIND Report ID: [id number] Reading Location: [id number] IMPRESSION: Osteoporosis. REFERENCE: Bone mineral density: T-Score: [...] Prevention and Treatment of Osteoporosis (http://www.nof.org/professionals/clinical-guidelines) Result [facility] Jer Coelho DO IMG DEXA ORDERABLES Final Result documented in this encounter Visit Diagnoses Diagnosis Age-related osteoporosis without current pathological fracture Senile osteoporosis documented in this encounter Care Teams Crusher Feeder Relationship Specialty Start Date End Date Jer Coelho DO [facility] [address] [place] [address] PCP - General Family Medicine 03/16/15 Samantha Harden APRN, SECTION WEAVER [address] [place] [address] Nurse Practitioner Advanced Practice Nurse 06/12/23 documented as of this encounter
--- OUTSIDE RECORDS SUMMARY | 2024-02-19 21:36 | XMS_ITS | Clinical Summary ---
Author Organization [facility] Address [address] [place] [address] Phone Care Team Providers Care A P Manager Name Role Phone LOWELL LIMA, OLIVE Prieto Primary Care Provider [phone] DENY PURVIS MD Unavailable [phone] Reason for Referral Date Encounter Description Provider Reason for Referral 06/01/14 ANNUAL HOTEL ATTENDANT EXAM MEHNAZ LEBRON WHNP-BC Req uest Consultation By Specialist Reason for Visit and Chief Complaint gynecologic annual exam - The Chief Complaint is: Annual Problems Includes: Problems addressed during this encounter and other active Problems Current Visit Onset Date Resolved Date Provider Conditio n Status Osteoporosis 06/01/2014 MEHNAZ LEBRON WHNP-BC Active Last Documented On 12/06/2015 2:03PM ; [facility] Note: DEXA - femoral neck only! Past Visits Onset Date Resolved Date Provider Condition Status Asthma 10/24/2012 MEHNAZ LEBRON WHNP-BC Act akanksha Last Documented On 3 3:28PM ; [facility] Hypertension Systemic 10/24/2012 MEHNAZ LEBRON WHNP-BC Active Last Documented On 3 3:27PM ; [facility] Plan of Treatment - Clinical summary provided to patient - Last Documented On 06/01/2014 2:57PM ; [facility] - Transition in care, clinical summary provided - Last Documented On 06/01/2014 2:57PM ; [facility] - Follow-up visit 1 year or as needed - Last Documented On 06/01/2014 2:57PM ; [facility] Per new ASCCP guidelines, pap was deferred today. This was d/w pt. and pt. is agreeable to this plan. - Last Documented On 06/01/2014 2:57PM ; [facility] Instructions to patient Instructions for patient : B reast Self Exam discussed Last Documented On 5 2:43PM ; [facility] Education and Decision Aids were provided during visit for: Patient Education: Daily félix cium and vitamin D Last Documented On 5 2:43PM ; [facility] Patient Education: weight be aring exercise Last Documented On 5 2:43PM ; [facility] Assessments Includes: Assessments from this encounter Findings - NORMAL FEMALE EXAM - Last Documented On 06/01/2014 2:57PM ; [facility] - Screening Malig. Neoplasm Rectum - Last Documented On 06/01/2014 2:57PM ; [facility] Instructions Includes: Instructions from this encounter Instructions to patient Instructions for patient : B reast Self Exam discussed Last Documented On 5 2:43PM ; [facility] Education and Decision Aids were provided during visit for: Patient Education: Daily félix cium and vitamin D Last Documented On 5 2:43PM ; [facility] Patient Education: weight be aring exercise Last Documented On 5 2:43PM ; [facility] Medical Equipment - Implanted Devices Includes: Current Devices No Medical Equipment Recorded Medications Includes: Medications discussed during this encounter and other current Medications Current Medications (continue as prescribed) Fosamax 70MG Oral Tablet 08/07/2017 Provider: KARYN CORTES- Diagnosis: Age-related oste oporosis w/o current pathological fracture as directed one po q week on empty stomach! Last Documented On 8 10:47AM By MEHNAZ CORTES-ELENA ; [facility] Lisinopril 10 MG OR TABS 04/17/2011 Provider: Diagnosis: Last Documented On 04/17/2011 9:19AM By MARY ALEXANDER ; [facility] Medications Administered Includes: Administered Medications from this encounter No Administered Medications Recorded Vital Signs Includes: Vital Signs from this encounter Vital Name 06/01/2014 02:45P Blood Pressure Sitting L 110/62 BP Cuff Size Regular Height (in) 60.75 Weight (lb) 113 Body Mass Index (kg/m2) 21.5 Body Surface Area (m2) 1.5 Last Documented: On 06/01/2014 2:47PM ; [facility] Results Includes: Results discussed during this encounter SUREPATH PAP [facility] In c. Ordered by MEHNAZ MARTE on 06/2011 Collected: 04/17/2011 Reported: 04/19/19 12 10:48 Last Documented On 2 1:37PM ; [facility] Reviewed on 04/20/2011; All test results are final unless otherwise noted. SOURCE: See Note N (Normal) Last Documented On 04/19/2011 1:37PM ; [facility] Note: Cervix, Endocervix CLINICAL INFORMATION: See Note N (Normal) Last Documented On 04/19/2011 1:37PM ; [facility] Note: Information not provided LMP: 2006 N (Normal) Last Documented On 2 1:37PM ; [facility] PREV. PAP: 2010 N (Normal) Last Documented On 2 1:37PM ; [facility] PREV. BX: NONE N (Normal) Last Documented On 2 1:37PM ; [facility] STATEMENT OF ADEQUACY: See Note N (Normal) Last Documented On 04/19/2011 1:37PM ; [facility] Note: Satisfactory for evaluation.Endocervical/transformation zone componentpresent. INTERPRETATION/RESULT: See Note N (Normal) Last Documented On 04/19/2011 1:37PM ; [facility] Note: Negative for intraepithelial lesion or malignancy. FLEXIBLE SHAFT WINDER: See Note N (Normal) Last Documented On 04/19/2011 1:37PM ; [facility] Note: BLG, CT(ASCP) INFECTION: See Note N (Normal) Last Documented On 04/19/2011 1:37PM ; [facility] Note: Shift in vaginal tisha suggestive of bacterialvaginosis. HPV DNA (HIGH RISK) [facility] In c. Ordered by MEHNAZ MARTE on 06/2011 Collected: 04/17/2011 Reported: 04/19/19 12 10:48 Last Documented On 2 1:37PM ; [facility] Reviewed on 04/20/2011; All test results are final unless otherwise noted. HPV DNA (HIGH RISK) NOT DETECTED (NOT DETECTED) N (Normal) Last Documented On 2 1:37PM ; [facility] Note: Tested for high risk types 16,18,31,33,35,39,45,51,52,56,58,59,68.The analytical performance characteristics of thisassay, when used to test SurePath or vaginal specimens,have been determined by [employer] [employer].Methodology: Hybrid Capture with Signal Amplification. History of Present Illness Includes: History of Present Illness from this encounter CARRIE SIERRA is a 54 year old female. - Medication list reviewed. - Menopause has occurred. Social History Description Last Updated Alcohol use occ 06/01/2014 Last Documented On 5 2:57PM ; [facility] Non-smoker 06/01/2014 Last Documented On 5 2:57PM ; [facility] Not using drugs 06/01/2014 Last Documented On 5 2:57PM ; [facility] Social history unchanged 06/01/2014 Last Documented On 5 2:57PM ; [facility] Smoking status : Former smoker Last Documented On 5 2:57PM ; [facility] Procedures and Surgical History Includes: Procedures from this encounter Procedures Code Diagnosis Performing Provider Service L ocation Service Date request consultation by specialist Last Documented On 5 2:51PM ; [facility] Referred to: Marie - screening colonoso cpy! Last Documented On 5 2:51PM ; [facility] a fecal occult blood test was negative 80804 Last Documented On 5 2:43PM ; [facility] normal history of Pap smear of cervix Last Documented On 5 2:49PM ; [facility] Surgical History Last Updated Surgical / procedural history Rt ovary r emoved 199412/06/2015 Last Documented On 5 2:43PM ; [facility] History of tubal ligation 03/12/2009 Last Documented On 5 2:43PM ; [facility] Medical History Includes: Medical History addressed during this encounter Description Last Updated section 09/17/2017 Last Documented On 5 2:43PM ; [facility] History of a DEXA of the lat eral lumbar spine was performed 11/04/2012 osteoporosis 06/01/2014 Last Documented On 5 2:57PM ; [facility] History of allergic rhinitis 06/01/2014 Last Documented On 5 2:57PM ; [facility] No recent change in medical history 05/14 Last Documented On 5 2:57PM ; [facility] History of complete colonoscopy 2009 Dr Salazar-gennaro last year 06/01/2014 Last Documented On 5 2:57PM ; [facility] Not sexually active 06/01/2014 Last Documented On 5 2:57PM ; [facility] History of Pap smear done 04/17/201105/14 Last Documented On 5 2:57PM ; [facility] History of screening mammogram was perfo rmed 05/25/2014 06/01/2014 Last Documented On 5 2:57PM ; [facility] Result: normal 06/01/2014 Last Documented On 5 2:57PM ; [facility] Result: normal 06/01/2014 Last Documented On 5 2:57PM ; [facility] History of benign essential hypertension 04/17/2011 Last Documented On 5 2:43PM ; [facility] History of menopause 03/12/2009 Last Documented On 5 2:43PM ; [facility] 2 03/12/2009 Last Documented On 5 2:43PM ; [facility] LMP: 200603/12/2009 Last Documented On 5 2:43PM ; [facility] Para 2 03/12/2009 Last Documented On 5 2:43PM ; [facility] Family History Includes: Family History addressed during this encounter Description Last Updated Family history unchanged 09/17/2017 Last Documented On 5 2:43PM ; [facility] Maternal history of hypercholesterolemia mother 06/01/2014 Last Documented On 5 2:57PM ; [facility] Maternal history of hypertension parents 06/01/2014 Last Documented On 5 2:57PM ; [facility] Paternal grandmother's histo ry of malignant neoplasm of the large intestine paternal grandma 06/01/2014 Last Documented On 5 2:57PM ; [facility] Review of Systems Includes: Review of Systems from this encounter Genitourinary: No pelvic pain and no postmenopausal bleeding. Mental Status Includes: Mental Status from this encounter No Mental Status Recorded Functional Status Includes: Functional Status from this encounter No Functional Status Recorded Physical Exam Includes: Physical Exam from this encounter Allergies Includes: Active Allergies No Known Allergies Encounters Encounter Provider Location Date Check-In Time Check-Out Time Diagnosis ANNUAL HOTEL ATTENDANT EXAM MEHNAZ LEBRON [facility] MICROBIOLOGY LAB MANAGER 06/02/19 15 2:41PM 2:59PM Screening Malig. Neoplasm Rectum,Normal Female Exam Insurance Includes: Active Insurance Policies Plan Name Member ID Group # Subscriber Relationship Effect akanksha Dates 1 - [facility] [id number] CINDY SIERRA Self Clinical Notes Includes: Clinical Notes from this encounter No Clinical Notes Recorded
--- OUTSIDE RECORDS SUMMARY | 2024-02-19 21:36 | XMS_ITS | Encounter Summary ---
Author Organization [facility] Address [address] [place] [address] Phone Care Team Providers Care Pet Store Merchandiser Name Role Phone Jer Coelho DO Primary Care Provider +1- [phone] Reason for Referral * Radiology Services (Routine) - Closed Specialty Diagnoses / Procedures Referred By Gumaro tran Referred To Contact Radiology Diagnoses Encounter for screening mammogram for malignant neoplasm of breast Procedures CHARI SCREENING BILATERAL DIGITAL W CAD Jer Coelho DO Phone: tel: fax: Referral ID Status Reason Start Date Expiration Date Visits Re quested Visits Authorized [id number] Closed 10/13/2020 1 1 * Radiology Services (Routine) - Closed Specialty Diagnoses / Procedures Referred By Gumaro tran Referred To Contact Radiology Diagnoses Asymptomatic postmenopausal state Procedures CHARI BONE DENSITOMETRY AXIAL SKELETON Jer Coelho DO Phone: tel: fax: Referral ID Status Reason Start Date Expiration Date Visits Re quested Visits Authorized [id number] Closed 10/13/2020 1 1 Encounter Details Date Type Department Care Team (Late st Contact Info) Description 10/13/2020 [facility] Central Scheduling [address] [place] [address] Jer Coelho DO [address] [place] [address] Asymptomatic postmenopausal state (Primary Dx); Encounter for [...] mammogram documented in this encounter Care Teams Pet Store Merchandiser Relationship Specialty Start Date End Date Jer Coelho DO [address] [place] [address] PCP - General Family Medicine 03/16/15 documented as of this encounter
--- OUTSIDE RECORDS SUMMARY | 2024-02-19 21:36 | XMS_ITS | Encounter Summary ---
Author Organization [employer] Care Team Providers Care Lining Layer Name Role Phone Jer Coelho DO Primary Care Provider +- [phone] Samantha Harden APRN, UPHOLSTERY ESTIMATOR Unavailable Encounter Details Date Type Department Care [...] on filedocumented in this encounter Care Teams Lining Layer Relationship Specialty Start Date End Date Jer Coelho DO [address] [place] [address] PCP - General Family Medicine 03/16/15 Samantha Harden APRN, UPHOLSTERY ESTIMATOR [address] [place] [address] Nurse Practitioner Advanced Practice Nurse 06/12/23 documented as of this encounter
--- OUTSIDE RECORDS SUMMARY | 2024-02-19 21:36 | XMS_ITS | Encounter Summary ---
Author Organization [facility] Address [address] [place] [address] Phone Care Team Providers Care Claim Professional Name Role Phone Jer Coelho DO Primary Care Provider +1- [phone] Reason for Referral * Radiology Services (Routine) - Closed Specialty Diagnoses / Procedures Referred By Gumaro tran Referred To Contact Radiology Diagnoses Acute cough Shortness of breath Fever, unspecified fever cause Procedures XR CHEST 2 VIEWS Lukas Collier PAC [address] [place] [address] Phone: tel: fax: Referral ID Status Reason Start Date Expiration Date Visits Re quested Visits Authorized [id number] Closed 02/01/2022 1 1 SMOKING MACHINE OFFBEARER Encounter Details Date Type Department Care Team (Late st Contact Info) Description 02/01/2022 Transcribe Orders [facility] Central Scheduling [address] [place] [id number] Lukas Collier PAC [address] [place] [address] Acute cough (Primary Dx); Shortness [...] XR CHEST 2 VIEWS (02/01/2022 3:55 PM PIPE SMOKING MACHINE OFFBEARER) Anatomical Region Laterality Modality Chest N/A Digital Radiogra phy 02/02/2022 4:09 PM PIPE SMOKING MACHINE OFFBEARER Impressions 02/02/2022 4:12 PM PIPE SMOKING MACHINE OFFBEARER IMPRESSION: ?? No acute cardiopulmonary abnormality. Narrative 02/02/2022 4:12 PM PIPE SMOKING MACHINE OFFBEARER EXAM DESCRIPTION: ?? XR CHEST 2 VIEWS [...] PM T: ??02/02/2022 4:09 PM Report ID: [id number] Reading Location: ??[id number] Procedure Note Sana Nicole MD - 02/02/2022 [...] 4:09 PM - Electronically signed by Sana Nciole M.D. TW: EVANGELISTA Report ID: [id number] Reading Location: [id number] IMPRESSION: No acute cardiopulmonary abnormality. Lukas Burrell [facility] IMG DIAGNOSTIC ORDERABLES Final Result documented in this encounter Visit Diagnoses Diagnosis Acute cough- Primary Shortness of breath Fever, unspecified fever cause Acute cough Shortness of breath Fever, unspecified fever cause documented in this encounter Care Teams Claim Professional Relationship Specialty Start Date End Date Jer Coelho DO [address] [place] [address] PCP - General Family Medicine 03/16/15 documented as of this encounter
--- OUTSIDE RECORDS SUMMARY | 2024-02-19 21:36 | XMS_ITS | Clinical Summary ---
Author Organization [facility] Address [address] [place] [address] Phone Care Team Providers Care District Wildlife Manager Name Role Phone LOWELL LIMA, OLIVE Prieto Primary Care Provider [phone] DENY COELHO MD Unavailable [phone] Reason for Visit and Chief Complaint gynecologic annual exam - The Chief Complaint is: Annual Problems Includes: Problems addressed during this encounter and other active Problems All Visits Onset Date Resolved Date Provider Condition S tatus Osteoporosis 06/01/2014 MEHNAZ LEBRON NP-BC Active Last Documented On 12/06/2015 2:03PM ; [facility] Note: DEXA - femoral neck only! Asthma 10/24/2012 MEHNAZ LEBRON NP-BC Active Last Documented On 3 3:28PM ; [facility] Hypertension Systemic 10/24/2012 MEHNAZ LEBRON NP-BC Active Last Documented On 3 3:27PM ; [facility] Plan of Treatment - Follow-up visit 1 year or as needed - Last Documented On 12/06/2015 2:16PM ; [facility] - Clinical summary provided to patient - Last Documented On 12/06/2015 2:16PM ; [facility] Instructions to patient Instructions for patient : B reast Self Exam discussed Last Documented On 6 1:58PM ; [facility] Colonoscopy Handout given to patient Last Documented On 6 1:59PM ; [facility] Education and Decision Aids were provided during visit for: Patient Education: Daily félix cium and vitamin D Last Documented On 6 1:58PM ; [facility] Patient Education: weight be aring exercise Last Documented On 6 1:58PM ; [facility] Assessments Includes: Assessments from this encounter Findings - NORMAL FEMALE EXAM - Last Documented On 12/06/2015 2:16PM ; [facility] - Screening Malig. Neoplasm Rectum - Last Documented On 12/06/2015 2:16PM ; [facility] Instructions Includes: Instructions from this encounter Instructions to patient Instructions for patient : B reast Self Exam discussed Last Documented On 6 1:58PM ; [facility] Colonoscopy Handout given to patient Last Documented On 6 1:59PM ; [facility] Education and Decision Aids were provided during visit for: Patient Education: Daily félix cium and vitamin D Last Documented On 6 1:58PM ; [facility] Patient Education: weight be aring exercise Last Documented On 6 1:58PM ; [facility] Medical Equipment - Implanted Devices Includes: Current Devices No Medical Equipment Recorded Medications Includes: Medications discussed during this encounter and other current Medications Discontinued / Stopped on this date on 10/24/2012 bnnuaovtp039/4.5mg 160/4.5mg OR INHA Prov ider: Diagnosis: Last Documented On 12/06/2015 2:05PM By MARY ALEXANDER ; [facility] New / Renewed during this visit MEHNAZ MARTE on 12/06/2015 Fosamax 70 MG Tablet Provider: MEHNAZ MARTE 30 day supply: 12 tablet, 3 refills Diagnosis: Age-related osteoporosis w/o current pathological fracture as directed one po q week on empty stomach! Pharmacy: [facility] [address] Last Documented On 8 10:36AM By MEHNAZ MARTE ; [facility] Current Medications (continue as prescribed) Fosamax 70MG Oral Tablet 08/07/2017 Provider: KARYN MARTE Diagnosis: Age-related oste oporosis w/o current pathological fracture as directed one po q week on empty stomach! Last Documented On 8 10:47AM By MEHNAZ MARTE ; [facility] Lisinopril 10 MG OR TABS 04/17/2011 Provider: Diagnosis: Last Documented On 04/17/2011 9:19AM By MARY ALEXANDER ; [facility] Medications Administered Includes: Administered Medications from this encounter No Administered Medications Recorded Vital Signs Includes: Vital Signs from this encounter Vital Name 12/06/2015 01:58P Blood Pressure Sitting L 118/64 BP Cuff Size Regular Height (in) 60 Weight (lb) 114 Body Mass Index (kg/m2) 22.3 Body Surface Area (m2) 1.5 Last Documented: On 12/06/2015 2:07PM ; [facility] Results Includes: Results discussed during this encounter No Results Recorded For Specified Dates History of Present Illness Includes: History of Present Illness from this encounter CARRIE SIERRA is a 55 year old female. - Medication list reviewed - PRIMARY CARE PROVIDER : Dr Coelho - Menopause has occurred Social History Description Last Updated Alcohol use socially 12/06/2015 Last Documented On 6 2:16PM ; [facility] Non-smoker 12/06/2015 Last Documented On 6 2:16PM ; [facility] Not using drugs 12/06/2015 Last Documented On 6 2:16PM ; [facility] Social history unchanged 12/06/2015 Last Documented On 6 2:16PM ; [facility] Smoking status : Former smoker Last Documented On 6 2:16PM ; [facility] Procedures and Surgical History Includes: Procedures from this encounter Procedures Code Diagnosis Performing Provider Service L ocation Service Date low fat diet Last Documented On 6 1:59PM ; [facility] fecal occult blood test was negative 41461 Last Documented On 6 1:58PM ; [facility] normal history of Pap smear of cervix Last Documented On 6 2:04PM ; [facility] Cervical Pap Smear performed Q0091 Last Documented On 6 1:59PM ; [facility] Surgical History Last Updated Surgical / procedural history Rt ovary r emoved 1994 ~c/sx2 12/06/2015 Last Documented On 6 2:16PM ; [facility] History of tubal ligation 03/12/2009 Last Documented On 6 1:57PM ; [facility] Medical History Includes: Medical History addressed during this encounter Description Last Updated History of a DEXA of the lat eral lumbar spine was performed 12/22/2014 osteoporosis 12/06/2015 Last Documented On 6 2:16PM ; [facility] section 12/06/2015 Last Documented On 6 2:16PM ; [facility] No recent change in medical history 11/13 Last Documented On 6 2:16PM ; [facility] History of complete colonoscopy 2014 Dr Salazar repeat in 5 years 12/06/2015 Last Documented On 6 2:16PM ; [facility] Sexually active not currently s.a 2015 Last Documented On 6 2:16PM ; [facility] History of Pap smear done 04/17/201111/13 Last Documented On 6 2:16PM ; [facility] History of screening mammogram was perfo rmed 05/25/2014 12/06/2015 Last Documented On 6 2:16PM ; [facility] Result: normal 12/06/2015 Last Documented On 6 2:16PM ; [facility] Result: normal 12/06/2015 Last Documented On 6 2:16PM ; [facility] History of asthma 10/24/2012 Last Documented On 6 1:57PM ; [facility] History of benign essential hypertension 04/17/2011 Last Documented On 6 1:57PM ; [facility] History of menopause 03/12/2009 Last Documented On 6 1:57PM ; [facility] 2 03/12/2009 Last Documented On 6 1:57PM ; [facility] LMP: 2007 03/12/2009 Last Documented On 6 1:57PM ; [facility] Para 2 03/12/2009 Last Documented On 6 1:57PM ; [facility] Family History Includes: Family History addressed during this encounter Description Last Updated Family history changed pt ju st lost neice - at 21 yo in car accident 3 weeks ago - 12/06/2015 Last Documented On 6 2:16PM ; [facility] Maternal history of hypertension parents 12/06/2015 Last Documented On 6 2:16PM ; [facility] Maternal history of pure hypercholestero lemia mother 12/06/2015 Last Documented On 6 2:16PM ; [facility] Paternal grandmother's histo ry of malignant neoplasm of large intestine paternal grandma 12/06/2015 Last Documented On 6 2:16PM ; [facility] Review of Systems Includes: Review of [...] Date Check-In Time Check-Out Time Diagnosis ANNUAL ELECTRICAL SUPERVISOR EXAM MEHNAZ LEBRON [facility] MANAGER MANAGING 12/06/19 16 1:54PM 2:20PM Screening Malig. Neoplasm Rectum,Normal Female Exam Insurance Includes: Active Insurance Policies Plan Name Member ID Group # Subscriber Relationship Effect akanksha Dates - [facility] [id number] CINDY SIERRA Self Clinical Notes Includes: Clinical Notes from this encounter No Clinical Notes Recorded
--- OUTSIDE RECORDS SUMMARY | 2024-02-19 21:36 | XMS_ITS | Encounter Summary ---
Author Organization [facility] Address [address] [place] [address] Phone Care Team Providers Care Management Accounts Manager Name Role Phone Jer Coelho DO Primary Care Provider [phone]- [phone] Samantha Harden APRN, DATABASE SECURITY ADMINISTRATOR Unavailable Reason for Referral * Radiology Services (Routine) - Closed Specialty Diagnoses / Procedures Referred By Contac t Referred To Contact Radiology Procedures GI LAB IMAGING - EGD John Thrasher MD [address] [address] Phone: tel: fax: Referral ID Status Reason Start Date Expiration Date Visits Re quested Visits Authorized [id number] Closed 08/31/2023 1 1 * Radiology Services (Routine) - Closed Specialty Diagnoses / Procedures Referred By Contac t Referred To Contact Radiology Procedures GI IMAGING - COLONOSCOPY John Thrasher MD [address] [address] Phone: tel: fax: Referral ID Status Reason Start Date Expiration Date Visits Re quested Visits Authorized [id number] Closed 08/31/2023 1 1 Reason for Visit * Auth/Cert (Routine) Specialty Diagnoses / Procedures Referred By Contac t Referred To Contact Diagnoses DYSPHAGIA, HX COLON POLYPS Procedures EGD COLONOSCOPY Referral ID Status Reason Start Date Expiration Date Visits Re quested Visits Authorized [id number] 1 1 Encounter Details Date Type Department Care Team (Late st Contact Info) Description 08/31/2023 7:04 AM CDT - 08/31/2023 9:20 AM CDT Hospital Encounter [facility] Preop/Pacu II [address] [place] [address] John Thrasher MD [address] [address] Provider, Anesthesiologist Discharge Disposition: Discharged to home [...] WORK, UNLESS INSTRUCTED OTHERWISE. Call doctor's office ([phone]) or go to Emergency room for: Difficulty Breathing, Headache Or Visual Disturbances Persistent Dizziness Or Light-Headedness Persistent Nausea and Vomiting Temperature greater then 100.0 Significant abdominal pain, chest pain, or bleeding. Here at [facility] we strive to provide excellent care to [...] is provided. Thank you for choosing [facility]. documented in this encounter Medications at Time [...] videos and all your education online visit, [email or web address] or scan this QR code with your [...] get enough exercise. You smoke. You take guqd-zrh-mtnmmcq pain medicines. You have a family history [...] Follow these instructions at home: Medicines Take mvjg-rjk-oczhaet and prescription medicines only as told by your provider. If told, take a fiber supplement or probiotic. Managing constipation Your condition may cause constipation. To prevent or treat constipation, you may need to: Drink enough fluid to keep your pee (urine) pale yellow. Take epuy-hqu-yxlkgzb or prescription medicines. Eat foods that are [...] 2004-10-26 Document Updated: 2022-10-26 Document Reviewed: 2022-10-26 Endocytevier Patient Education ? 2023 Voluntis. * PatientPass Patient Instructions - Mimi Levi RN - 08/31/2023 8:16 AM CDT Images from the original note were not included. Patient Education Table of Contents Esophagitis To view videos and all your education online visit, [email or web address] or scan this QR code with your [...] Follow these instructions at home: Medicines Take xknb-xjv-iwismsy and prescription medicines only as told by [...] vinegar, hot sauces, and barbecue sauce. ? [place] fruit juices and citrus fruits, such as oranges, jonah, and limes. ? Tomato-based foods, such as red sauce, chili, salsa, and pizza with red sauce. ? Fried and fatty foods, such as donuts, portuguese fries, potato chips, and high- fat dressings. [...] Reviewed: 2020-08-09 Elsevier Patient Education ? 2023 Voluntis. * Plan of Care - Mimi Levi [...] your procedure. You must have an adult line haul truck driver (18 yrs or older) arranged [...] list of current medications, dosages and any omem-xth-rztxbhl medication (such as herbs, oils, supplements) or [...] or questions Sunday - Sunday 8am-4pm at [phone] You will get a call from the Endoscopy Dept ([phone]) a week before your procedure to give [...] or nasal spray. Thank you for selecting [facility] Healthcare [facility] ([facility]) or your procedure. We know you have a choice ofr your healthcare and we are pleased to prvide you with this service. Our [place] [facility] is to: Serve with the Greatest Care and Love . We are not employees of [facility] we are [employer] driven to provide care based on our [place], Vision and Values. Please do not hesitate to let us know if you have any questions or concerns. May God Bless you and we look forward to serving you. Your Perioperative Team. * Interdisciplinary - Deja Burger RN - 08/14/2023 3:33 PM CDT [facility] GI TEACHING Patient Name: Roxanna Cabral : 1960 [facility]#: [id number] Person Educated Patient Ready to Learn Yes [...] for your procedure as instructed by the [facility] GI Lab. Go to Registration the morning [...] be allowed to accompany you to the [facility]. No children under the age of 16 will be allowed in the [facility] unless they are the patient. If [...] to Teaching: Verbalizes Understanding Patient assessed for sign language translator during the preop interview and appropriate interventions [...] Negative Negative 09/01/2023 10:11 AM CDT [facility] Culture STOMACH STRUCTURE / Unknown Non-Phlebotomy Collection / Unknown 08/31/2023 8:06 AM CDT 08/31/2023 9:09 AM CDT us John Thrasher MD MICROBIOLOGY - GENERAL ORDERABLE S Final Result [facility] [address] [place] [address] * GI LAB IMAGING - EGD (08/31/2023 [...] RN)[id number] (Paused - Provider: Sarah Freeman APRN, PATIENT RELATIONS DIRECTOR - Comment: Switch to gravity)0757 (Restarted - Provider: Sarah Freeman APRN, LISA)0823 (Anesthesia Volume Adjustment - Provider: Sarah Freeman APRN, LISA)0887 (Stopped - Provider: Mimi Levi RN) PRN Medication Order 08/29/2023 08/30/2023 08/31/2023 ondansetron (ZOFRAN) injection 4 mg 4 mg, Intravenous, ONCE PRN, 1 dose, Starting on Sun08/31/23 at 0705, Until Sun08/31/23 at 1121, Nausea - 1st line, PRE-OP (SURGERY) documented in this encounter Care Teams Management Accounts Manager Relationship Specialty Start Date End Date Jer Coelho DO [address] [place] [address] PCP - General Family Medicine 03/16/15 Samantha Harden APRN, DATABASE SECURITY ADMINISTRATOR [address] [place] [address] Nurse Practitioner Advanced Practice Nurse 06/12/23 documented as of this encounter
--- OUTSIDE RECORDS SUMMARY | 2024-02-19 21:36 | XMS_ITS | Encounter Summary ---
Author Organization [facility] Address [address] [place] [address] Phone Care Team Providers Care Shellfish Bed Worker Name Role Phone Jer Coelho DO Primary Care Provider [phone]- [phone] Samantha Harden APRN, IMPLANT COORDINATOR Unavailable Reason for Referral * Radiology Services (Routine) - Closed Specialty Diagnoses / Procedures Referred By Contac t Referred To Contact Radiology Diagnoses LLQ abdominal pain Procedures CT ABDOMEN PELVIS W/ CONTRAST Jer Coelho DO [address] [place], [place] [address] [address] Phone: tel: fax: Referral ID Status Reason Start Date Expiration Date Visits Re quested Visits Authorized [id number] Closed 08/31/2023 1 1 Reason for Visit * Radiology Services (Routine) - Closed Specialty Diagnoses / Procedures Referred By Contac t Referred To Contact Radiology Diagnoses LLQ abdominal pain Procedures CT ABDOMEN PELVIS W/ CONTRAST Jer Coelho DO [address] [place], [place] [address] [address] Phone: tel: fax: Referral ID Status Reason Start Date Expiration Date Visits Re quested Visits Authorized [id number] Closed 08/31/2023 1 1 Encounter Details Date Type Department Care Team (Late st Contact Info) Description 10/03/2023 7:44 AM CDT - 10/03/2023 11:59 PM CDT Hospital Encounter [facility] [address] [place] [address] Jer Coelho, DO [address] [place] [address] Discharge Disposition: Discharged to home or Selfcare [...] ??Grade 1 anterolisthesis of L4 on L5. ??Lxwe-wf-btojqnpd bilateral neuroforaminal stenosis at L4-L5. ??Moderate L4-L5 [...] PM T: ??10/03/2023 2:39 PM Report ID: [id number] Reading Location: ??[id number] Procedure Note Epifanio Mckinney MD - 10/03/2023 [...] Grade 1 anterolisthesis of L4 on L5. Dniq-pn-rtbwkgpz bilateral neuroforaminal stenosis at L4-L5. Moderate L4-L5 disc bulge and uncovering of the disc with moderate central spinal canal stenosis. MRI may prove helpful for further evaluation if clinically desired. OTHER: No other abnormality. THIS IS AN ELECTRONICALLY VERIFIED FINAL REPORT 10/03/2023 2:39 PM - Electronically signed by Epifanio Mckinney M.D. BB: CARL Report ID: [id number] Reading Location: [id number] IMPRESSION: 1. Mild colonic diverticulosis without evidence [...] 1.3 mg/dL 10/03/2023 8:09 AM CDT [facility] Blood 10/03/2023 8:07 AM CDT 10/03/2023 8:09 AM CDT us None Provider POINT OF CARE TESTING Final Resu lt [facility] [address] [place] [address] documented in this encounter Visit Diagnoses Diagnosis [...] mL documented in this encounter Care Teams Shellfish Bed Worker Relationship Specialty Start Date End Date Jer Coelho DO [facility] [place] [address] PCP - General Family Medicine 03/16/15 Samantha Harden APRN, IMPLANT COORDINATOR [address] [place] [address] Nurse Practitioner Advanced Practice Nurse 06/12/23 documented as of this encounter
--- OUTSIDE RECORDS SUMMARY | 2024-02-19 21:36 | XMS_ITS | Encounter Summary ---
Author Organization [facility] Address [address] [place] [address] Phone Care Team Providers Care Professor Of Latin American Studies Name Role Phone Jer Coelho DO Primary Care Provider [phone]- [phone] Reason for Referral * Radiology Services (Routine) - Closed Specialty Diagnoses / Procedures Referred By Contac t Referred To Contact Radiology Diagnoses Acute cough Shortness of breath Fever, unspecified fever cause Procedures XR CHEST 2 VIEWS Lukas Collier PAC [address] [place] [address] Phone: tel: fax: Referral ID Status Reason Start Date Expiration Date Visits Re quested Visits Authorized Closed 02/01/2022 1 1 [facility] Reason for Visit * Radiology Services (Routine) - Closed Specialty Diagnoses / Procedures Referred By Contac t Referred To Contact Radiology Diagnoses Acute cough Shortness of breath Fever, unspecified fever cause Procedures XR CHEST 2 VIEWS Lukas Collier PAC [address] [facility] [place] [address] Phone: tel: fax: Referral ID Status Reason Start Date Expiration Date Visits Re quested Visits Authorized Closed 02/01/2022 1 1 Encounter Details Date Type Department Care Team (Late st Contact Info) Description 02/01/2022 3:30 PM PRIMARY CARE PEDIATRICIAN - 02/01/2022 11:59 PM PRIMARY CARE PEDIATRICIAN Hospital Encounter [facility] Diagnostic Radiology [address] [place] [address] Lukas Collier, PAC [address] [place] [address] Discharge Disposition: Discharged to home or Selfcare [...] Coronavirus/COVID-19? No / Unsure 02/01/2022 3:31 PM PRIMARY CARE PEDIATRICIAN documented as of this encounter Medications at [...] CHEST 2 VIEWS Routine 02/01/2022 3:55 PM PRIMARY CARE PEDIATRICIAN Acute cough Shortness of breath Fever, unspecified fever cause documented in this encounter Results * XR CHEST 2 VIEWS (02/01/2022 3:55 PM PRIMARY CARE PEDIATRICIAN) Anatomical Region Laterality Modality Chest N/A Digital Radiogra phy 02/02/2022 4:09 PM PRIMARY CARE PEDIATRICIAN Impressions 02/02/2022 4:12 PM PRIMARY CARE PEDIATRICIAN IMPRESSION: ?? No acute cardiopulmonary abnormality. Narrative 02/02/2022 4:12 PM PRIMARY CARE PEDIATRICIAN EXAM DESCRIPTION: ?? XR CHEST 2 VIEWS [...] PM T: ??02/02/2022 4:09 PM Report ID: [id number] Reading Location: ??[id number] Procedure Note Sana Nicole MD - 02/02/2022 [...] Sana Nicole M.D. TW: EVANGELISTA Report ID: [id number] Reading Location: [id number] IMPRESSION: No acute cardiopulmonary abnormality. us Lukas Burrell Collier PAC IMG DIAGNOSTIC ORDERABLES Final Result documented in this encounter Visit Diagnoses Diagnosis Acute cough Shortness of breath Fever, unspecified fever cause documented in this encounter Care Teams Professor Of Latin American Studies Relationship Specialty Start Date End Date Jer Coelho DO [address] [place] [address] PCP - General Family Medicine 03/16/15 documented as of this encounter
--- OUTSIDE RECORDS SUMMARY | 2024-02-19 21:36 | XMS_ITS | Encounter Summary ---
Author Organization [facility] Care Team Providers Care Paramedic Instructor Name Role Phone Jer Coelho DO Primary Care Provider +1- [phone] Samantha Harden APRN, SUPERVISOR FLOOR ASSEMBLY Unavailable Encounter Details Date Type Department Care [...] on filedocumented in this encounter Care Teams Paramedic Instructor Relationship Specialty Start Date End Date Jer Coelho DO [address] [place] [address] PCP - General Family Medicine 03/16/15 Samantha Harden APRN, SUPERVISOR FLOOR ASSEMBLY [address] [facility] [place] [address] Nurse Practitioner Advanced Practice Nurse 06/12/23 documented as of this encounter
--- OUTSIDE RECORDS SUMMARY | 2024-02-19 21:36 | XMS_ITS | Encounter Summary ---
Author Organization [facility] Care Team Providers Care Route Sales Trainee Name Role Phone Jer Coelho DO Primary Care Provider +1- [phone] Samantha Harden APRN, BUSINESS SPECIALIST Unavailable Encounter Details Date Type Department Care [...] on filedocumented in this encounter Care Teams Route Sales Trainee Relationship Specialty Start Date End Date Jer Coelho DO [address] [place] [address] PCP - General Family Medicine 03/16/15 Samantha Harden APRN, BUSINESS SPECIALIST [address] [place] [address] Nurse Practitioner Advanced Practice Nurse 06/12/23 documented as of this encounter
--- OUTSIDE RECORDS SUMMARY | 2024-02-19 21:36 | XMS_ITS | Encounter Summary ---
Author Organization [facility] Address [address] [place] [address] Phone Care Team Providers Care Music Coordinator Name Role Phone Jer Coelho DO Primary Care Provider +1- [phone] Reason for Referral * Radiology Services (Routine) - Closed Specialty Diagnoses / Procedures Referred By Contac t Referred To Contact Radiology Diagnoses Senile osteoporosis Procedures CHARI BONE DENSITOMETRY AXIAL SKELETON Lukas Collier PAC [address] [facility] [place] [address] Phone: tel: fax: Referral ID Status Reason Start Date Expiration Date Visits Re quested Visits Authorized [id number] Closed 06/20/2022 1 1 * Radiology Services (Routine) - Closed Specialty Diagnoses / Procedures Referred By Contac t Referred To Contact Radiology Diagnoses Visit for screening mammogram Procedures CHARI SCREENING BILATERAL DIGITAL W CAD Lukas Collier PAC [address] [facility] [place] [address] Phone: tel: fax: Referral ID Status Reason Start Date Expiration Date Visits Re quested Visits Authorized [id number] Closed 06/20/2022 1 1 Encounter Details Date Type Department Care Team (Late st Contact Info) Description 06/20/2022 Transcribe Orders [facility] Central Scheduling [address] [place] [address] Collier Lukasmarc Burrell, PAC [address] [place] [address] Senile osteoporosis (Primary Dx); Visit for screening [...] mammogram documented in this encounter Care Teams Music Coordinator Relationship Specialty Start Date End Date Jer Coelho DO [address] [place] [address] PCP - General Family Medicine 03/16/15 documented as of this encounter
--- OUTSIDE RECORDS SUMMARY | 2024-02-19 21:38 | XMS_ITS | Encounter Summary ---
Author Organization [facility] Healthcare Address [address] [place] [address] Care Team Providers Care Mine Boss Name Role Phone Jer Coelho DO Primary Care Provider +1- [phone] Encounter Details Date Type Department Care Team (Late st Contact Info) Description 04/10/2008 6:52 AM TUBE WINDER HAND - 04/10/2008 11:59 PM TUBE WINDER HAND Hospital Encounter [facility] CLINDennis Verduzco MD [address] [place] [address] [place] [address] [place] [address] Other screening mammogram Social History Tobacco Use Types Packs/Day Years Used Date Smoking Tobacco: Never Assessed Alcohol Use Standard Drinks/Week Comments No 0 (1 standard drink = 0.6 oz pur e alcohol) Comments Unknown Sex and Gender Information Value Date Recorded Sex Assigned at Not on file Legal Sex Female 10:01 AM TUBE WINDER HAND Gender Identity Not on file Sexual Orientation Not on file documented as of this encounter Plan of Treatment Not on file documented as of this encounter Visit Diagnoses Diagnosis Other screening mammogram documented in this encounter Care Teams Mine Boss Relationship Specialty Start Date End Date Jer Coelho DO [address] [facility] [place] [address] PCP - General 01/31/08 01/19/11 documented as of this encounter
--- OUTSIDE RECORDS SUMMARY | 2024-02-19 21:38 | XMS_ITS | Encounter Summary ---
Author Organization [facility] Healthcare Address [address] [place] [address] Care Team Providers Care Provider Contracting Consultant Name Role Phone Jer Coelho DO Primary Care Provider +1- [phone] Reason for Visit * Reason Comments Injections * Episode Based Medications (Routine) - Authorized Specialty Diagnoses / Procedures Referred By Contac t Referred To Contact Diagnoses Age-related osteoporosis without current pathological fracture [address] [address] Phone: tel: [address] [place] [address] Phone: tel: Referral ID Status Reason Start Date Expiration Date V isits Requested Visits Authorized [id number] Authorized 12/07/2023 01/05/2025 2 2 Encounter Details Date Type Department Care Team (Latest Contact Info) Description 12/18/2023 8:30 AM SKI PATROLLER Clinical Support [address] [address] Age-related osteoporosis without current pathological fracture (Primary Dx) Social History Tobacco Use Types Packs/Day Years Used Date Smoking Tobacco: Never Assessed Alcohol Use Standard Drinks/Week Comments Yes 0 (1 standard drink = 0.6 oz pur e alcohol) Comments No Sex and Gender Information Value Date Recorded Sex Assigned at Not on file Legal Sex Female 10:01 AM SKI PATROLLER Gender Identity Not on file Sexual Orientation Not on file documented as of this encounter Last Filed Vital Signs Vital Sign Reading Time Taken Comments Blood Pressure 152/97 12/18/2023 8:26 AM SKI PATROLLER Pulse 77 12/18/2023 8:26 AM SKI PATROLLER Temperature 35.9 ??C (96.6 ??F) 12/18/2023 8:26 AM CS T Respiratory Rate 16 12/18/2023 8:26 AM SKI PATROLLER Oxygen Saturation 99% 12/18/2023 8:26 AM SKI PATROLLER Inhaled Oxygen Concentration - - Weight - - Height - - Body Mass Index - - documented in this encounter Nursing Notes * Renee Humphrey RN - 12/18/2023 8:30 AM CST Pt here for Prolia as ordered by . Given as noted in MAR. Next appointment given. PATROLLER documented in this encounter Plan of Treatment [...] current pathological fracture Given 12/18/2023 8:32 AM SKI PATROLLER 60 mg Left Upper Arm documented in [...] 12/18/2023 documented in this encounter Care Teams Provider Contracting Consultant Relationship Specialty Start Date End Date Jer Coelho DO [address] [facility] [place] [address] PCP - General 01/20/11 documented as of this encounter
--- OUTSIDE RECORDS SUMMARY | 2024-02-19 21:38 | XMS_ITS | Referral Summary ---
Author Organization [facility] Address [address] [place] [address] Care Team Providers Care Skilled Nursing Case Manager Name Role Phone Jer Coelho DO Primary Care Provider +1- [phone] Encounters Date Type Department Care Team Description 12/18/2023 8:30 AM APPRENTICE ELECTRICIAN [facility] [address] [facility] [address] [place] [address] Age-related osteoporosis without current pathological fracture (Primary Dx) 12/07/[address] [place] [address] Yara Robb RN from Last 3 Months [...] on file Legal Sex Female 10:01 AM APPRENTICE ELECTRICIAN Gender Identity Not on file Sexual Orientation Not on file Last Filed Vital Signs Vital Sign Reading Time Taken Comments Blood Pressure 152/97 12/18/2023 8:26 AM APPRENTICE ELECTRICIAN Pulse 77 12/18/2023 8:26 AM APPRENTICE ELECTRICIAN Temperature 35.9 ??C (96.6 ??F) 12/18/2023 8:26 AM CS T Respiratory Rate 16 12/18/2023 8:26 AM APPRENTICE ELECTRICIAN Oxygen Saturation 99% 12/18/2023 8:26 AM APPRENTICE ELECTRICIAN Inhaled Oxygen Concentration - - Weight 55.8 kg (123 lb) 05/16/2019 8:08 AM CDT Height 157.5 cm (5' 2 ) 05/16/2019 8:08 AM CDT Body Mass Index 22.5 05/16/2019 8:08 AM CDT Plan of Treatment Not on file Insurance [facility] [employer] MEDICARE [facility] Address: [address] [address] [place] [address] Care Teams Skilled Nursing Case Manager Relationship Specialty Start Date End Date Jer Coelho DO [address] [place] [address] PCP - General 01/20/11
--- OUTSIDE RECORDS SUMMARY | 2024-02-19 21:38 | XMS_ITS | Clinical Summary ---
Author Organization [facility] Address [address] [place] [address] Care Team Providers Care Invertebrate Paleontologist Name Role Phone Jer Coelho DO Primary Care Provider +1- [phone] Allergies No known active allergies Medications meclizine [...] Department Care Team Description 12/18/2023 8:30 AM PROPERTY DISPOSAL MANAGER Clinical Support [address] [place] [address] Age-related osteoporosis without current pathological fracture (Primary Dx) 12/07/[address] [place] [address] Yara Robb RN from Last 3 Months Surgical History Surgery Date Site/Laterality Comments HYSTERECTOMY Hysterectomy SECTION section SECTION 1993 section SECTION 1997 section OTHER SURGICAL HISTORY 1998 benign mass: R oophrectomy Medical History Medical History Date Comments Pneumonia Pneumonia Hx Other Medical Macular Pattern Dystrophy Hx Other Medical 1998 benign mass Hx Other Medical chalk tester exam Family History Medical History Relation Name [...] on file Legal Sex Female 10:01 AM PROPERTY DISPOSAL MANAGER Gender Identity Not on file Sexual Orientation Not on file Obstetrics History Last Filed Vital Signs Vital Sign Reading Time Taken Comments Blood Pressure 152/97 12/18/2023 8:26 AM PROPERTY DISPOSAL MANAGER Pulse 77 12/18/2023 8:26 AM PROPERTY DISPOSAL MANAGER Temperature 35.9 ??C (96.6 ??F) 12/18/2023 8:26 AM CS T Respiratory Rate 16 12/18/2023 8:26 AM PROPERTY DISPOSAL MANAGER Oxygen Saturation 99% 12/18/2023 8:26 AM PROPERTY DISPOSAL MANAGER Inhaled Oxygen Concentration - - Weight 55.8 [...] Screening-Bone Density Scan 09/27/2025 09/28/2023, 09/28/2023 Insurance [facility] MEDICARE Care Teams Invertebrate Paleontologist Relationship Specialty Start Date End Date Jer Coelho DO [address] [place] [address] PCP - General 01/20/11
--- OUTSIDE RECORDS SUMMARY | 2024-02-19 21:38 | XMS_ITS | Encounter Summary ---
Author Organization [facility] Healthcare Address [address] [place] [address] Care Team Providers Care French Edge Operator Name Role Phone Jer Coelhoony Primary Care Provider +1- [phone] Reason for Visit * Reason Comments Back Pain Encounter Details Date Type Department Care Team (Late st Contact Info) Description 04/02/2022 3:28 AM SUPERVISOR COOPERAGE SHOP - 04/02/2022 4:00 AM [facility] Emergency [facility] Emergency Department 1 [place] [address] Neisha Zarate MD [address] [place] [address] Acute bilateral low back pain with left-sided [...] on file Legal Sex Female 10:01 AM [facility] Gender Identity Not on file Sexual Orientation [...] with voice recognition software. Occasional wrong-word or '[id number]' substitutions may have occurred due to the inherent limitations of voice recognition software. Read the chart carefully and recognize, using context, where substitutions have occurred. H&P: Roxanna Cabral is a 61 y.o. 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 Tools Developer errors occur. Please contact me for any clarification.) Neisha Zarate MD 04/02/22 0402 RVISOR COOPERAGE SHOP * Kerri Pereira RN - 04/02/2022 3:51 AM CST See downtime paperwork. RVISOR COOPERAGE SHOP documented in this encounter Plan of Treatment Not on file documented as of this encounter Visit Diagnoses Diagnosis Acute bilateral low back pain with left-sided sciatica- Primary documented in this encounter Care Teams French Edge Operator Relationship Specialty Start Date End Date Jer Coelho DO [address] [place] [address] PCP - General 01/20/11 documented as of this encounter
--- OUTSIDE RECORDS SUMMARY | 2024-02-19 21:38 | XMS_ITS | Encounter Summary ---
Author Organization [facility] Healthcare Address [address] [place] [address] Care Team Providers Care Professional Skateboarder Name Role Phone Jer Coelho DO Primary Care Provider +1- [phone] Encounter Details Date Type Department Care Team (Late st Contact Info) Description 11/27/2008 12:01 AM CDT - 11/27/2008 11:59 PM CDT Hospital Encounter [facility] Jer Coelho DO [address] [facility] [place] [address] Enlarged lymph nodes Social History Tobacco Use Types Packs/Day Years Used Date Smoking Tobacco: Never Assessed Alcohol Use Standard Drinks/Week Comments No 0 (1 standard drink = 0.6 oz pur e alcohol) Comments Unknown Sex and Gender Information Value Date Recorded Sex Assigned at Not on file 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
--- OUTSIDE RECORDS SUMMARY | 2024-02-19 21:38 | XMS_ITS | Encounter Summary ---
Author Organization [facility] Healthcare Address [address] [place] [address] Care Team Providers Care Automobile Racer Name Role Phone Jer Coelho DO Primary Care Provider +1- [phone] Encounter Details Date Type Department Care Team (Late st Contact Info) Description 02/25/2023 Community Orders [facility] EpicCare Link Jer Coelho DO [address] [place] [address] Social History Tobacco Use Types Packs/Day Years Used Date Smoking Tobacco: Never Assessed Alcohol Use Standard Drinks/Week Comments Yes 0 (1 standard drink = 0.6 oz pur e alcohol) Comments No Sex and Gender Information Value Date Recorded Sex Assigned at Not on file 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
--- OUTSIDE RECORDS SUMMARY | 2024-02-19 21:38 | XMS_ITS | Encounter Summary ---
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
--- OUTSIDE RECORDS SUMMARY | 2024-02-19 21:38 | XMS_ITS | Encounter Summary ---
Author Organization [facility] Healthcare Address [address] [place] [address] Care Team Providers Care Nurses' Association Counselor Name Role Phone Jer Coelho DO Primary Care Provider +1- [phone] Encounter Details Date Type Department Care Team (Late st Contact Info) Description 12/07/[address] [place] [address] Yara Fierro RN Social History Tobacco Use Types Packs/Day Years Used Date Smoking Tobacco: Never Assessed Alcohol Use Standard Drinks/Week Comments Yes 0 (1 standard drink = 0.6 oz pur e alcohol) Comments No Sex and Gender Information Value Date Recorded Sex Assigned at Not on file 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
--- OUTSIDE RECORDS SUMMARY | 2024-02-19 21:38 | XMS_ITS | Encounter Summary ---
Author Organization [facility] Healthcare Address [address] [place] [address] Care Team Providers Care Crop Pest Control Specialist Name Role Phone Jer Coelho DO Primary Care Provider +1- [phone] Reason for Visit * Reason Comments Cough Nausea Dizziness Encounter Details Date Type Department Care Team (Late st Contact Info) Description 05/16/2019 8:00 AM CDT - 05/16/2019 10:24 AM CDT Emergency [facility] Emergency Department 1 [place] [address] Wilfrid Nogueira MD [address] [address] Dizziness (Primary Dx) Discharge Disposition: Discharge to home or self care Social History Tobacco Use Types Packs/Day Years Used Date Smoking Tobacco: Never Assessed Alcohol Use Standard Drinks/Week Comments Yes 0 (1 standard drink = 0.6 oz pur e alcohol) Comments No Sex and Gender Information Value Date Recorded Sex Assigned at Not on file 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 * Dizziness, Uncertain Cause (Bruneian) documented in this encounter Medications at Time [...] Comment s Discharge to home or self USP documented in this encounter ED Notes * [...] 1999 benign mass ??? 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 Pneumonia Pneumonia Past Surgical History: [...] AM CDT Narrative 05/16/2019 9:42 AM CDT [facility] ?Imaging Result Name: ROXANNA SIERRA ? Ordering Phys: WILFRID NOGUEIRA Age: 59 ?Date of : 1960 ? Accession Number: [id number] Date of Service: 05/16/2019 ??Gender: F EXAM [...] AM T: ??05/16/2019 9:38 AM Report ID: [id number] Reading Location: ??[id number] Procedure Note Jeremiah Ladd MD - 05/16/2019 [facility] Imaging Result Name: ROXANNA SIERRA Ordering Phys: WILFRID NOGUEIRA Age: 59 Date of : 1960 Accession Number: [id number] Date of Service: 05/16/2019 Gender: F EXAM [...] by Jeremiah Ladd M.D. MD: Report ID: [id number] Reading Location: [place] [address] Wilfrid Nogueira MD IM CT PROCEDURES Final Result * eGFR (05/16/2019 8:24 AM CDT) eGFR 95 mL/min/1.7 3 m2 [facility] ([place]) Comment: Interpretive Data Reference Interval Normal ?>/= 90 mL/min/1.73m2 Mildly decreased* ? 60 - 89 mL/min/1.73m2 Mildly to moderately decreased ?45 - 59 mL/min/1.73m2 Moderately to severely decreased ??30 - 44 mL/min/1.73m2 Severely decreased ?15 - 29 mL/min/1.73m2 Kidney Failure ?< 15 ??mL/min/1.73m2 *Relative to young adult level If -Czech multiply value by 1.16. Estimated glomerular filtration [...] Final Res ult [facility] ([place]) 1 [facility] [place] [address] * Differential, auto (05/16/2019 8:24 AM CDT) [...] BLOOD ORDERABLES Final Res ult [facility] ([place]) 1 [facility] [place] [address] * Protime-INR (05/16/2019 8:24 AM CDT) PT 10.3 9.5 - 13.0 sec [facility] ([place]) INR 0.9 0.9 - 1.2 [facility] ([place]) Comment: Interpretive data Oral anticoagulant therapeutic ranges: [...] ORDERABLES Final Res ult Performing Organization Address [facility] Co de Phone Number KAYLEN [place]) 1 [facility] [place] [address] * Troponin T (05/16/2019 8:24 AM CDT) Troponin T <0.01 0.00 - 0.01 ng/mL [facility] ([place]) Comment: Interpretive Data Reference ranges for children <18 years of age have not been established. - > or = 18 years: Serial determinations are recommended for the diagnosis of myocardial infarction. ??Temporal rise and fall are consistent with myocardial infarction when at least one value is above the 99th percentile upper reference limit for troponin assay. ??Journal of the [place] College of Cardiology 2012;60:1581-98. Current Interpretive Data Last Revised Date: 2017. Blood specimen (specimen) 05/16/2019 8:24 AM CDT 05/16/2019 8:26 AM CDT Wilfrid Nogueira MD LAB BLOOD ORDERABLES Final Res ult Performing Organization Address [facility] Co de Phone Number KAYLEN [place]) 1 [facility] [place] [address] * Comprehensive metabolic panel (05/16/2019 8:24 AM CDT) Sodium 139 135 - 145 mmol/L [facility] ([place]) Potassium, pl 4.4 3.3 - 4.9 mmol/L [facility] ([place]) Chloride 103 97 - 110 mmol/L [facility] ([place]) CO2 24 22 - 32 mmol/L [facility] ([place]) Anion gap 12 2 - 15 mmol/L [facility] ([place]) BUN 22 8 - 25 mg/dL [facility] ([place]) Creatinine 0.66 0.60 - 1.10 mg/dL [facility] ([place]) Glucose 111 70 - 199 mg/dL [facility] ([place]) Comment: Interpretive Data Fasting glucose >/= [...] MD LAB BLOOD ORDERABLES Final Res ult [facility] ([place]) 1 [facility] Department [place] [address] * CBC with auto differential (05/16/2019 8:24 [...] ORDERABLES Final Res ult Performing Organization Address [facility] Co de Phone Number KAYLEN [facility] ([place]) 1 [facility] [place] [address] * ECG 12 lead (05/16/2019 8:14 AM CDT) 05/16/2019 8:14 AM CDT Narrative [facility] [employer] - 05/16/2019 10:31 AM CDT Vent Rate: 59 bpm RR Interval: 1006 msec IA Interval: 122 msec QRS Duration: 89 msec QT Interval: 367 msec QTC Interval: 367 msec P-R-T [place]: 61 - 30 - 36 degrees SINUS BRADYCARDIA POSSIBLE LEFT ATRIAL ENLARGEMENT ??[-0.1mV P WAVE IN V1/V2] BORDERLINE ECG Electronically Signed By: Andi Rios MD us Wilfrid Nogueira MD ECG ORDERABLES Final Result Performing Organization Address [facility] Co de Phone Number [facility] [employer] [facility] documented in this encounter Visit Diagnoses Diagnosis Dizziness- Primary Dizziness and giddiness documented in this encounter Care Teams Crop Pest Control Specialist Relationship Specialty Start Date End Date Jer Coelho DO [address] [facility] [place] [address] PCP - General 01/20/11 documented as of this encounter
== END 2024-02-12 11:37 | disposition home or self-care (01) ==
PROVIDERS: Emergency Provider Nurse Practitioner; PCP Family Medicine
DX: J18.9 Pneumonia, unspecified organism (principal); Z20.828 Contact with and (suspected) exposure to other viral communicable diseases; Z20.822 Contact with and (suspected) exposure to COVID-19; I10 Essential (primary) hypertension; J45.909 Unspecified asthma, uncomplicated
CPT/HCPCS: 71046; 87426; 87804; 99213; G0463